=== PATIENT | male | born 1935 | race Caucasian/White ===

== ENCOUNTER 2018-08-19 16:11 | Inpatient (IN) | END 2018-08-26 19:35 | DRG 190 ==

== ENCOUNTER 2018-09-09 19:12 | Emergency (ER) | END 2018-09-09 22:40 | disposition home or self-care (01) ==

== ENCOUNTER 2018-11-17 13:59 | Inpatient (IN) | payer MEDICARE, OTHER ==
[~2018-11-17] VITALS: Ht 157.5 cm; Wt 64.5 kg
[~2018-11-17 13:59] MED LIST: ALBU18HF INHALATION; ALBU2.5V3 NEB; APIX2.5T PO; BICA50TA5 ORAL; CARSR60 PO; CLON-379 PO; HYDR-3671 PO; LORA1TAB PO; METO-335 PO; ONDA4TAB13 PO; PANT40TA4 PO; UMEC62.5 IH
[2018-11-17] MEDS ORDERED: ALBUTEROL 0.5% (NEB) 2.5 MG/0.5 ML AMP INH STA (14:38)
[2018-11-17] MEDS ORDERED: IPRATROPIUM (NEB) 0.5 MG/2.5 ML AMP INH STA (14:38)
[2018-11-17] MEDS ORDERED: FUROSEMIDE 20 MG INJ IV ONE (16:30)
[2018-11-17] MEDS ORDERED: ONDANSETRON 4 MG INJ IV PRN ×2 (17:00→21:30)
[2018-11-17] MEDS ORDERED: METHYLPREDNISOLONE 125 MG INJ IV ONE (17:00)
[2018-11-17] MEDS ORDERED: PIPER-TAZO 3.375 GM IV (PMX) 100 ML IVPB ONE (17:00)
[2018-11-17] MEDS ORDERED: ACETAMINOPHEN 325 MG TAB PO PRN (17:00)
[2018-11-17] MEDS ORDERED: SUVO20TA2 ORAL (17:51)
[2018-11-17] MEDS ORDERED: CHOL5000 ORAL (17:51)
[2018-11-17] MEDS ORDERED: NICARDipine HCL 30 MG CAPSULE PO ONE (18:00)
--- NOTE | 2018-11-17 18:16 | ERD ---
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 Normally the patient is able to ambulate with his home oxygen but he is unable to get out of the bed due to the shortness of breath. His nephew also states that he is noticed that the patient's had a productive cough. He feels that this has made it more difficult for the patient debrided. Contrary to the triage note the patient is not complained of leg pain for the past 3 days and no leg swelling. He said no fevers or shaking or chills. He had a decrease in appetite. The patient had a history of tobacco use but quit 8 years ago and diagnosed with pulmonary fibrosis. ROS All systems reviewed and are negative except as per history of present illness. Medications Home Meds Reported Medications Pantoprazole* (Pantoprazole*) 40 Mg Tablet.dr, 40 MG PO AC BREAKFAST, TAB 09/09/18 Ondansetron Hcl* (Zofran*) 4 Mg Tab, 4 MG PO Q6H PRN for NAUSEA AND OR VOMITING, TAB 09/09/18 Lorazepam* (Lorazepam*) 1 Mg Tablet, 1 MG PO BID PRN for ANXIETY, #30 TAB 09/09/18 Apixaban* (Eliquis*) 2.5 Mg Tablet, 2.5 MG PO BID, TAB 09/09/18 Clonidine Hcl* (Clonidine Hcl*) 0.1 Mg Tab, 0.1 MG PO Q8 PRN for FOR SBP>160, TAB 09/09/18 Diltiazem Hcl* (Cardizem SR*) 60 Mg Capsr, 60 MG PO Q6H, #60 CAP HOLD FOR SBP<110 OR HR<60 09/09/18 Hydralazine Hcl* (Hydralazine Hcl*) 25 Mg Tab, 25 MG PO Q8, #90 TAB HOLD IF SBP<110 OR HR<60 09/09/18 Bicalutamide* (Casodex*) 50 Mg Tablet, 50 MG ORAL DAILY 08/19/18 Albuterol Sulfate* (Albuterol Sulfate* Neb) 0.083%-3 Ml Neb, 1.25 MG NEB Q4H, #30 VIAL 08/19/18 Umeclidinium [place] (Incruse Ellipta) 62.5 Mcg Blst.w.dev, 62.5 MCG IH DAILY 08/19/18 Metoprolol Succinate* (Toprol XL*) 25 Mg Tab.sr.24h, 25 MG PO DAILY, #30 TAB HOLD IF SBP<110 OR HR<60 08/19/18 Albuterol Sulfate* (Ventolin HFA*) 18 Gm Hfa.aer.ad, 2 PUFF INHALATION Q4H PRN for SHORTNESS OF BREATH, #1 INHALER 08/19/18 Allergies Allergies: Coded Allergies: tramadol (Verified Allergy, Unknown, 09/09/18) PMhx/Soc History of Surgery: Yes (stent placement in both legs -4 years ago ) Anesthesia Reaction: No Hx Neurological Disorder: No Hx Respiratory Disorders: Yes (COPD, per family chronic collapsed lung. History of TB ) Hx Cardiac Disorders: No (HTN ) Hx Psychiatric Problems: No Hx Miscellaneous Medical Probl: Yes (granulomatous TB, L-sided lung collapse, COPD on chronic home O2, HTN, pros) Hx Alcohol Use: No Hx Substance Use: No Hx Tobacco Use: Yes (7 years ago stopped smoking) Smoking Status: Former smoker Physical Exam Vitals Vital Signs Date Temp Pulse Resp B/P (MAP) Pulse Ox O2 O2 Flow FiO2 Time Delivery Rate 11/17/18 98.7 100 20 177/108 92 BIPAP 2.0 17:46 (131) 11/17/18 98.7 85 20 180/116 92 BIPAP 2.0 17:09 (137) 11/17/18 98 98 50 17:08 11/17/18 98.7 91 32 172/116 92 Nasal 2.0 16:24 (134) Cannula 11/17/18 98.7 88 32 166/109 92 Nasal 2.0 15:24 (128) Cannula 11/17/18 89 20 89 Nasal 2.0 15:15 Cannula 11/17/18 2.0 15:15 11/17/18 Nasal 2.0 15:07 Cannula 11/17/18 Nasal 2 15:07 Cannula 11/17/18 98.7 105 32 189/105 93 14:15 (133) Physical Exam Constitutional:Well-developed. Well-nourished. Patient severe respiratory distress HEENT:Normocephalic. Atraumatic.Pupils were equal round reactive to light. Moist mucous membranes.No tonsillar exudates. Neck: No nuchal rigidity. No lymphadenopathy. No posterior cervical spine tenderness or step-offs. Respiratory: Tachypneic and patient using accessory muscles of respiration.decreased breath sounds in the left hemithorax. No rhonchi. No rales. Wheezing bilaterally Cardiovascular: Tachycardic with irregular regular rhythm no murmurs. No rubs were appreciated.S1, S2 normal. Distal pulses are palpable 2+ bilaterally. GI: Abdomen was soft. Nontender. Non Distended. No pulsatile abdominal masses or bruits. No rebound. No guarding. Bowel sounds were present and normal. Muscle skeletal: Full range of motion of both the upper and lower extremities bilaterally.Normal muscle tone.No assymetrical calf tenderness or swelling. Skin: No petechia, no purpura. No lesions on the palms or the soles of the feet. No maculopapular rash. NEURO: Patient was alert, awake, orientated x3.No facial droop. Gait not observed as patient was in severe respiratory distress and unable to Ambulate Result Diagram: 11/17/18 1450 11/17/18 1450 Results 24 hrs Laboratory Tests Test 11/17/18 14:50 White Blood Count 9.3 10^3/ul Red Blood Count 3.47 10^6/ul Hemoglobin 10.3 g/dl Hematocrit 32.5 % Mean Corpuscular Volume 93.7 fl Mean Corpuscular Hemoglobin 29.7 pg Mean Corpuscular Hemoglobin Concent 31.7 g/dl Red Cell Distribution Width 14.9 % Platelet Count 343 10^3/UL Mean Platelet Volume 9.4 fl Immature Granulocytes % 0.500 % Neutrophils % 61.7 % Lymphocytes % 16.5 % Monocytes % 9.7 % Eosinophils % 10.5 % Basophils % 1.1 % Nucleated Red Blood Cells % 0.0 /100WBC Immature Granulocytes # 0.050 10^3/ul Neutrophils # 5.7 10^3/ul Lymphocytes # 1.5 10^3/ul Monocytes # 0.9 10^3/ul Eosinophils # 1.0 10^3/ul Basophils # 0.1 10^3/ul Nucleated Red Blood Cells # 0.0 10^3/ul Prothrombin Time 12.6 Sec Prothrombin Time Ratio 1.0 INR International Normalized Ratio 0.93 Activated Partial Thromboplast Time 29.9 Sec Sodium Level 145 mmol/L Potassium Level 3.8 mmol/L Chloride Level 105 mmol/L Carbon Dioxide Level 28 mmol/L Anion Gap 12 Blood Urea Nitrogen 21 mg/dl Creatinine 1.73 mg/dl Est Glomerular Filtrat Rate mL/min mL/min Glucose Level 118 mg/dl Calcium Level 10.2 mg/dl Total Bilirubin 0.2 mg/dl Direct Bilirubin 0.00 mg/dl Indirect Bilirubin 0.2 mg/dl Aspartate Amino Transf (AST/SGOT) 26 IU/L Alanine Aminotransferase (ALT/SGPT) 10 IU/L Alkaline Phosphatase 89 IU/L Troponin I < 0.012 ng/ml B-Type Natriuretic Peptide 6090 PG/ML Total Protein 8.4 g/dl Albumin 4.6 g/dl Globulin 3.80 g/dl Albumin/Globulin Ratio 1.21 Current Medications Medications Dose Sig/Lilia Start Time Status Last (Trade) Ordered Route PRN Stop Time Admin Dose Reason Admin Albuterol 10 mg ONCE STAT 11/17/18 DC 11/17/18 (Proventil INH 14:38 11/17/18 15:14 0.5% (Neb)) 14:47 Ipratropium 1 mg ONCE STAT 11/17/18 DC 11/17/18 [place] INH 14:38 11/17/18 15:14 (Atrovent 14:47 0.02% (Neb)) Furosemide 20 mg ONCE ONCE 11/17/18 DC 11/17/18 (Lasix) IV 16:30 11/17/18 16:27 16:31 125 mg ONCE ONCE 11/17/18 DC 11/17/18 Methylprednis IV 17:00 11/17/18 17:23 olone Sodium 17:01 Succinate (Solu-Medrol) Piperacillin 100 ml @ ONCE ONCE 11/17/18 DC 11/17/18 Sod/ 200 mls/hr IVPB 17:00 11/17/18 17:23 Tazobactam 17:29 Sod Ondansetron 4 mg ER BRIDGE 11/17/18 HCl (Zofran PRN IV 17:00 11/18/18 Inj) NAUSEA/VOMITI 16:59 NG 650 mg ER BRIDGE 11/17/18 Acetaminophen PRN PO 17:00 11/18/18 (Tylenol .MILD PAIN 16:59 Tab) 1-3 OR TEMP Procedures/MDM The patient presented to the emergency department with shortness of breath. My differential diagnosis included but was not limited to upper airway obstruction, CHF, pulmonary embolism, cardiac ischemia, pneumonia, pneumothorax, anemia, drug overdose, pulmonary edema, COPD or asthma. 12 Lead EKG tracing ordered and reviewed by myself showed: Irregular regular rhythm at 86 bpm and no arrhythmia. MA interval not appreciated as there is no P waves QRS duration normal. No ST segment elevation No ST segment depression. No changes consistent with acute ischemia. The patient had no leukocytosis. I did not feel the patient was septic. The patient has a known history of significant granulomatosis disease on home oxygen with COPD. He was given a continuous nebulizer treatment of albuterol Atrovent was also given 125 mg of Solu-Medrol. His BNP was elevated but he has no history of congestive heart failure. I did administer 40 mg of Lasix with no improvement of his symptoms. Therefore at this time the patient was placed on noninvasive mechanical ventilation. I obtained a chest radiograph which showed a complete left opacification however this has been unchanged from previous radiographic imaging reviewed by myself. The patient symptoms significant improvement placed on BiPAP. The patient was hypertensive with no signs of endorgan damage to suggest hypertensive emergency or urgency and was given Cardene p.o. He will be admitted under care of Dr. Hart in serious condition with anticipated stay of greater than 2 midnights. I did feel it was necessary to obtain a CT scan of the patient's chest for further evaluation into the opacification of the left lung. The CT was reviewed with the radiologist and indicated the followin. Again noted is chronic severe scarring/fibrosis and atelectasis of the entire left lung, with associated shift of mediastinal structures to the left, essentially unchanged when compared to prior CT from 2017. 2. Right lung demonstrates severe emphysema. Mild right pleural effusion is present. 3. Indeterminate spiculated 12 mm nodule is seen in the right lower lobe - primary lung malignancy is not excluded. Short interval CT followup in 3 months is recommended to assess interval stability. Consider PET CT for further evaluation. (2017 Fleischner Society Criteria) 4. Mild cardiomegaly. 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 Coronary arterial and aortic atherosclerotic calcifications. 5. 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 Critical Care: Time: 85 minutes Treatments/Evaluations: Close monitoring and treatment of unstable vital signs, cardiorespiratory, and neurologic status, while maintaining tight balance of fluid, respiratory, and cardiac interventions. Time does not include performing any of the above billable procedures. Departure Diagnosis: Primary Impression: Emphysema lung Emphysema type: unspecified Qualified Codes: J43.9 - Emphysema, unspecif ied Additional Impression: Respiratory distress Condition: Serious PRATEEK HERRING MD Nov 17, 2018 18:01
[2018-11-17 19:22] VITALS: PULSE 92
[2018-11-17 19:42] VITALS: PULSE 88
[2018-11-17 20:00] VITALS: PULSE 99; Ht 157.5 cm; Wt 64.5 kg
[2018-11-17] MEDS ORDERED: ALBUTEROL/IPRATROPIUM (NEB) 3 ML AMP HHN PRN (21:30)
[2018-11-17] MEDS: METHYLPREDNISOLONE 125 MG INJ IV SCH (22:40)
[2018-11-17] MEDS: ACETAMINOPHEN 325 MG TAB PO PRN (22:41)
[2018-11-17] MEDS: PIPER-TAZO 3.375 GM IV (PMX) 100 ML IVPB SCH (23:07)
[2018-11-17 23:33] VITALS: BP 132/88; PULSE 99; RESP 18
[2018-11-18] VITALS (12 sets, daily range): BP systolic 133–142; BP diastolic 75–92; PULSE 84–110; RESP 18–22
[2018-11-18] MEDS: ALBUTEROL/IPRATROPIUM (NEB) 3 ML AMP HHN SCH ×6 (01:18→20:47)
[2018-11-18] MEDS: PANTOPRAZOLE 40 MG INJ IV SCH (06:35)
[2018-11-18] MEDS: METHYLPREDNISOLONE 125 MG INJ IV SCH ×3 (06:39→20:19)
[2018-11-18] MEDS: PIPER-TAZO 3.375 GM IV (PMX) 100 ML IVPB SCH ×3 (06:39→20:19)
[2018-11-18] MEDS: CHOLECALCIFEROL 1,000 UNIT TAB PO SCH (08:55)
[2018-11-18] MEDS: BICALUTAMIDE 50 MG TAB PO SCH (09:15)
--- NOTE | 2018-11-18 10:51 | CONS ---
Assessment/Plan Assessment/Plan Assessment/Plan (Daily) Chest x-ray showing complete white out of left lung with mediastinal shift towards the left. Assessment recommendations; next 1. Patient admitted with what appears to be acute bronchitis with history of COPD and prior pulmonary tuberculosis with complete left lung opacification. Patient improving on current treatment regimen. 2. Other comorbidities include history of hypertension, chronic renal insufficiency, history of prostate cancer. Continue current supportive care. Consultation Date/Type/Reason Admit Date/Time Nov 17, 2018 at 17:00 Date of Consultation: Nov 18, 2018 Type of Consult Pulmonary Pulmonary consult requested for evaluation of hypoxemia and shortness of breath. Patient is a pleasant 83-year-old male who came into the hospital with a 3-day history of increasing coughing and chest congestion and shortness of breath. Patient has been started on appropriate antimicrobial regimen with significant improvement in symptoms. He denies any high fever, chills, body aches or myalgias. Any hemoptysis or sputum production. Also denies any wheezing. Past medical history; 1. 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 2. COPD. 3. Hypertension. 4. History of prostate cancer. 5. Chronic renal insufficiency. Medications; reviewed. Allergies; none. Social history; patient never smoked. Family history; noncontributory. Review of systems; denies any headache, visual changes. Any sinus symptoms. Denies any chest pain. Complains of mild cough without any hemoptysis or sputum production. Denies any angina, abdominal pain, nausea vomiting. Any melena or hematochezia. Any orthopnea. Any weight loss. Any arthritis symptoms. Patient has good appetite. Denies any urinary symptoms. According to the patient he was doing fine until 3 or 4 days ago when the symptoms started. General exam; elderly male, awake alert, currently in no distress. Occupational history; patient has a miscellaneous occupations. Date/Time of Note DATE: 11/18/18 TIME: 10:48 Past Medical History Home Meds Reported Medications Cholecalciferol (D3-5) 5,000 Unit Capsule, 1 CAP ORAL DAILY 11/17/18 Suvorexant (Belsomra) 20 Mg Tablet, 20 MG ORAL HS PRN for ANXIETY 11/17/18 Bicalutamide* (Casodex*) 50 Mg Tablet, 50 MG ORAL DAILY 08/19/18 Albuterol Sulfate* (Albuterol Sulfate* Neb) 0.083%-3 Ml Neb, 1.25 MG NEB Q4H, #30 VIAL 08/19/18 Umeclidinium [place] (Incruse Ellipta) 62.5 Mcg Blst.w.dev, 62.5 MCG IH DAILY 08/19/18 Discontinued Reported Medications Pantoprazole* (Pantoprazole*) 40 Mg Tablet.dr, 40 MG PO AC BREAKFAST, TAB 09/09/18 Ondansetron Hcl* (Zofran*) 4 Mg Tab, 4 MG PO Q6H PRN for NAUSEA AND OR VOMITING, TAB 09/09/18 Lorazepam* (Lorazepam*) 1 Mg Tablet, 1 MG PO BID PRN for ANXIETY, #30 TAB 09/09/18 Apixaban* (Eliquis*) 2.5 Mg Tablet, 2.5 MG PO BID, TAB 09/09/18 Clonidine Hcl* (Clonidine Hcl*) 0.1 Mg Tab, 0.1 MG PO Q8 PRN for FOR SBP>160, TAB 09/09/18 Diltiazem Hcl* (Cardizem SR*) 60 Mg Capsr, 60 MG PO Q6H, #60 CAP HOLD FOR SBP<110 OR HR<60 09/09/18 Hydralazine Hcl* (Hydralazine Hcl*) 25 Mg Tab, 25 MG PO Q8, #90 TAB HOLD IF SBP<110 OR HR<60 09/09/18 Metoprolol Succinate* (Toprol XL*) 25 Mg Tab.sr.24h, 25 MG PO DAILY, #30 TAB HOLD IF SBP<110 OR HR<60 08/19/18 Albuterol Sulfate* (Ventolin HFA*) 18 Gm Hfa.aer.ad, 2 PUFF INHALATION Q4H PRN for SHORTNESS OF BREATH, #1 INHALER 08/19/18 Medications Current Medications Acetaminophen (Tylenol Tab) 650 mg Q6H PRN PO MILD PAIN(1-3)OR ELEVATED TEMP Last administered on 11/17/18at 22:41; Admin Dose 650 MG; Start 11/17/18 at 21:30 Ondansetron HCl (Zofran Inj) 4 mg Q6H PRN IV NAUSEA AND/OR VOMITING; Start 11/17/18 at 21:30 Pantoprazole (Protonix Iv) 40 mg DAILY@06 IV Last administered on 11/18/18 06:35; Admin Dose 40 MG; Start 11/18/18 at 06:00 Albuterol/ Ipratropium (Duoneb) 3 ml Q4H RESP THERAPY HHN Last administered on 11/18/18 08:40; Admin Dose 3 ML; Start 11/18/18 at 01:00 Albuterol/ Ipratropium (Duoneb) 3 ml Q2H RESP THERAPY PRN HHN WHEEZING; Start 11/17/18 at 21:30 Piperacillin Sod/ Tazobactam Sod 100 ml @ 200 mls/hr Q8 IVPB Last administered on 11/18/18 06:39; Admin Dose 200 MLS/HR; Start 11/17/18 at 23:30 Methylprednisolone Sodium Succinate (Solu-Medrol) 60 mg Q8 IV Last administered on 11/18/18 06:39; Admin Dose 60 MG; Start 11/17/18 at 22:00 Bicalutamide (Casodex) 50 mg DAILY PO Last administered on 11/18/18 09:15; Admin Dose 50 MG; Start 11/18/18 at 09:00 Cholecalciferol (Vitamin D) 5,000 unit DAILY PO Last administered on 11/18/18 08:55; Admin Dose 5,000 UNIT; Start 11/18/18 at 09:00 Allergies: Coded Allergies: No Known Drug Allergies (Verified Allergy, Unknown, 11/17/18) Social History Smoking Status: Former smoker Exam/Review of Systems Exam Vitals Vital Signs Date Temp Pulse Resp B/P (MAP) Pulse Ox O2 O2 Flow FiO2 Time Delivery Rate 11/18/18 3.0 08:43 11/18/18 88 20 98 Nasal 08:41 Cannula 11/18/18 97.6 136/80 07:23 (98) 11/17/18 50 19:42 Intake and Output 11/17/18 11/17/18 11/18/18 1414:59 22:59 06:59 IntakeIntake Total 350 ml OutputOutput Total 550 ml BalanceBalance -550 ml 350 ml Exam HEENT exam; supple neck, no JVD. No lymphadenopathy. Midline trachea. No thyromegaly. Patient has carious teeth. Chest exam; diminished breath sounds left lung. Right lung is fairly clear. S 1-S2 audible, no murmurs. Regular rhythm. Abdomen exam; soft, no organomegaly. Nondistended. Nontender. Bowel sounds audible. Extremity exam; no peripheral edema clubbing. RECORDS ANALYST exam; no focal deficit. Results Result Diagram: 11/18/18 0516 11/18/18 0516 Results 24hrs Laboratory Tests Test 11/17/18 14:50 11/17/18 21:08 11/18/18 05:16 11/18/18 08:03 White Blood Count 9.3 7.9 Red Blood Count 3.47 L 3.37 L Hemoglobin 10.3 L 9.7 L Hematocrit 32.5 L 30.4 L Mean Corpuscular 93.7 90.2 Volume Mean Corpuscular 29.7 28.8 L Hemoglobin Mean Corpuscular 31.7 L 31.9 L Hemoglobin Concent Red Cell 14.9 H 15.0 H Distribution Width Platelet Count 343 # 347 Mean Platelet 9.4 9.5 Volume Immature 0.500 H 0.600 H Granulocytes % Neutrophils % 61.7 89.1 H Lymphocytes % 16.5 8.9 L Monocytes % 9.7 1.1 Eosinophils % 10.5 H 0.0 Basophils % 1.1 0.3 Nucleated Red 0.0 0.0 Blood Cells % Immature 0.050 H 0.050 H Granulocytes # Neutrophils # 5.7 7.0 Lymphocytes # 1.5 0.7 L Monocytes # 0.9 0.1 L Eosinophils # 1.0 H 0.0 Basophils # 0.1 0.0 Nucleated Red 0.0 0.0 Blood Cells # Prothrombin Time 12.6 Prothrombin Time 1.0 Ratio INR International 0.93 Normalized Ratio Activated 29.[address] Time Sodium Level 145 H 145 H Potassium Level 3.8 3.6 Chloride Level 105 101 Carbon Dioxide 28 28 Level Anion Gap 12 16 H Blood Urea 21 H 23 H Nitrogen Creatinine 1.73 H 1.75 H Est Glomerular Filtrat Rate mL/min Glucose Level 118 187 Calcium Level 10.2 9.9 Total Bilirubin 0.2 Direct Bilirubin 0.00 Indirect Bilirubin 0.2 Aspartate Amino 26 Transf (AST/SGOT) Alanine 10 L Aminotransferase ( ALT/SGPT) Alkaline 89 Phosphatase Troponin I < 0.012 B-Type Natriuretic 6090 H Peptide Total Protein 8.4 H Albumin 4.6 Globulin 3.80 H Albumin/Globulin 1.21 Ratio Blood Gas Specimen Blood arterial Source Arterial Blood 11/17/2018 9:30:23 Date Drawn PM Arterial Blood pH 7.473 H (Temp corrected) Arterial Blood 38.7 pCO2 (Temp correct) Arterial Blood pO2 87.9 (Temp corrected) Arterial Blood 27.7 H HCO3 Arterial Blood 3.9 H Base Excess Arterial Blood 96.7 Oxygen Saturation Juma Test ACCEPTAB Arterial Blood Gas Right Radial Puncture Site Arterial 0.3 Blood Carboxyhemog lobin Arterial Blood 0.2 Methemoglobin Blood Gas A-a O2 80.5 H Differential Oxyhemoglobin 96.2 Percent Blood Gas 37.0 Temperature Blood Gas Modality NASAL CANNULA FiO2 30.0 Blood Gas Notified RTR Whom Blood Gas Notified 11/17/2018 9:45:55 Time PM Bedside Glucose 196 Medications Medication Current Medications Acetaminophen (Tylenol Tab) 650 mg Q6H PRN PO MILD PAIN(1-3)OR ELEVATED TEMP Last administered on 11/17/18at 22:41; Admin Dose 650 MG; Start 11/17/18 at 21:30 Ondansetron HCl (Zofran Inj) 4 mg Q6H PRN IV NAUSEA AND/OR VOMITING; Start 11/17/18 at 21:30 Pantoprazole (Protonix Iv) 40 mg DAILY@06 IV Last administered on 11/18/18at 06:35; Admin Dose 40 MG; Start 11/18/18 at 06:00 Albuterol/ Ipratropium (Duoneb) 3 ml Q4H RESP THERAPY HHN Last administered on 11/18/18at 08:40; Admin Dose 3 ML; Start 11/18/18 at 01:00 Albuterol/ Ipratropium (Duoneb) 3 ml Q2H RESP THERAPY PRN HHN WHEEZING; Start 11/17/18 at 21:30 Piperacillin Sod/ Tazobactam Sod 100 ml @ 200 mls/hr Q8 IVPB Last administered on 11/18/18at 06:39; Admin Dose 200 MLS/HR; Start 11/17/18 at 23:30 Methylprednisolone Sodium Succinate (Solu-Medrol) 60 mg Q8 IV Last administered on 11/18/18 06:39; Admin Dose 60 MG; Start 11/17/18 at 22:00 Bicalutamide (Casodex) 50 mg DAILY PO Last administered on 11/18/18at 09:15; Admin Dose 50 MG; Start 11/18/18 at 09:00 Cholecalciferol (Vitamin D) 5,000 unit DAILY PO Last administered on 11/18/18at 08:55; Admin Dose 5,000 UNIT; Start 11/18/18 at 09:00 PATRICK GRIFFIN Nov 18, 2018 10:51
--- NOTE | 2018-11-18 16:10 | QN ---
Documentation Comment seen and examined FELIX BHAGAT MD Nov 18, 2018 16:10
--- NOTE | 2018-11-18 16:59 | HP ---
DATE OF ADMISSION: 11/17/2018 CHIEF COMPLAINT: Shortness of breath and cough. HISTORY OF PRESENT ILLNESS: This is an 83-year-old male with a past medical history of old granuloma tous TB, left-sided lung collapse, history of COPD on chronic home oxygen, hypertension, history of p rostate cancer on Casodex, who was recently admitted in 08/2018 secondary to shortness of breath and chest pain. The patient was then subsequently discharged on 08/26/2018 on antibiotics and steroids. The patient since then had been living with sister at home. According to the family, the patient wa s getting shortness of breath for past 3 days. He was also having hard time breathing. When he was taking 2 steps, he was getting short of breath. The patient was also having some leg pain. On admis jonah, vital signs show temperature 98.7, heart rate 106, respiratory rate 21, blood pressure was 189/ 105, saturating 2 liters on nasal cannula. Chest x-ray again showed the patient had complete opacifi cation of the left hemithorax and ____ mediastinal structures unchanged from prior, stable atelectasi s, small pleural effusion. The patient was on BiPAP and was started on steroids, Zosyn, Lasix and ni cardipine was given and was admitted for further management. PAST MEDICAL HISTORY: 1. Hypertension. 2. Hyperlipidemia. 3. History of chronic smoking. 4. History of prostate cancer. 5. 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 ALLERGIES: ULTRAM. PAST SURGICAL HISTORY: According to the sister, the patient has peripheral vascular disease and surg eries on the legs. MEDICATIONS TAKING AT HOME: 1. Casodex oral daily. 2. Albuterol. 3. Incruse. 4. Belsomra. 5. Cholecalciferol. SOCIAL HISTORY: History of smoking prior. No alcohol or drug use. Currently lives at home with the sister who is his hat checker. FAMILY HISTORY: Noncontributory. REVIEW OF SYSTEMS: The patient complained of generalized weakness, shortness of breath and cough for the past 2 to 3 days. No fevers. Denies any abdominal pain, nausea, vomiting, diarrhea. The patie nt also complained of pain in the bilateral lower extremities. Denies any hematemesis, any melena, a ny bright red blood per rectum. Denies any focal neurological deficits. PHYSICAL EXAMINATION: VITAL SIGNS: Blood pressure currently 152/87, afebrile, heart rate 99, respirations 21 on 3 liters n willie cannula. GENERAL: The patient is awake, alert, oriented, appears to be in mild distress. CHEST: Diminished breath sounds in left lung. Right lung is clear. HEART: No murmur. ABDOMEN: Soft, nontender, nondistended. EXTREMITIES: No clubbing, cyanosis or edema. NEUROLOGIC: Nonfocal. LABORATORY DATA: White count 7.9, hemoglobin 9.7, platelet count 347. Creatinine of ____, BUN of 23 , sodium of 145. On last discharge, creatinine was 1.34. BNP 6090. ASSESSMENT AND PLAN: This is an 83-year-old male with: 1. Shortness of breath secondary to acute bronchitis with complete left opacification. 2. Hypertension. 3. Acute on chronic kidney disease. 4. History of prostate cancer. 5. History of tuberculosis with the left lung loss. 6. Chronic obstructive pulmonary disease. PLAN: At this period of time, the patient is admitted to telemetry. The patient will be on nebs, an tibiotics, steroids. Pulmonary consultation has been requested. The patient will be continued on ho me medications. Rest of the treatment will depend on the patient's hospitalization course. Dictated By: FELIX SHAFFER/SONYA Conf#: [id number] DID#: [id number] CC: SHERI GILL MD;*End*
[2018-11-19] VITALS (12 sets, daily range): BP systolic 130–168; BP diastolic 77–96; PULSE 87–109; RESP 18–20
[2018-11-19] MEDS: GUAIFENESIN/DM 5ML CUP PO PRN ×3 (00:29→20:57)
[2018-11-19] MEDS: ALBUTEROL/IPRATROPIUM (NEB) 3 ML AMP HHN SCH ×6 (01:17→20:02)
[2018-11-19] MEDS: PANTOPRAZOLE 40 MG INJ IV SCH (05:40)
[2018-11-19] MEDS: METHYLPREDNISOLONE 125 MG INJ IV SCH ×3 (05:40→21:07)
[2018-11-19] MEDS: PIPER-TAZO 3.375 GM IV (PMX) 100 ML IVPB SCH ×2 (05:43→14:00)
[2018-11-19] MEDS: CHOLECALCIFEROL 1,000 UNIT TAB PO SCH (08:21)
[2018-11-19] MEDS: BICALUTAMIDE 50 MG TAB PO SCH (08:25)
--- NOTE | 2018-11-19 08:50 | CONS ---
Assessment/Plan Assessment/Plan Assessment/Plan (Daily) Assessment and recommendations; 1. 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 2. Anemia. 3. Chronic renal insufficiency. Continue current supportive care. Add Zithromax 500 mg IV daily. Consultation Date/Type/Reason Admit Date/Time Nov 17, 2018 at 17:00 Initial Consult Date 11/18/18 Type of Consult Pulmonary Pulmonary consult requested for evaluation of hypoxemia and shortness of breath. Patient is a pleasant 83-year-old male who came into the hospital with a 3-day history of increasing coughing and chest congestion and shortness of breath. Patient has been started on appropriate antimicrobial regimen with significant improvement in symptoms. He denies any high fever, chills, body aches or myalgias. Any hemoptysis or sputum production. Also denies any wheezing. Past medical history; 1. 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 2. COPD. 3. Hypertension. 4. History of prostate cancer. 5. Chronic renal insufficiency. Medications; reviewed. Allergies; none. Social history; patient never smoked. Family history; noncontributory. Review of systems; denies any headache, visual changes. Any sinus symptoms. Denies any chest pain. Complains of mild cough without any hemoptysis or sputum production. Denies any angina, abdominal pain, nausea vomiting. Any melena or hematochezia. Any orthopnea. Any weight loss. Any arthritis symptoms. Patient has good appetite. Denies any urinary symptoms. According to the patient he was doing fine until 3 or 4 days ago when the symptoms started. General exam; elderly male, awake alert, currently in no distress. Occupational history; patient has a miscellaneous occupations. Date/Time of Note DATE: 11/19/18 TIME: 08:48 24 HR Interval Summary Free Text/Dictation Patient's condition is stable. Still complains of significant coughing and chest congestion as well as yellow sputum production. General exam; elderly male, awake alert, currently no distress. Episodes of c oughing noticed. Exam/Review of Systems Exam Vitals Vital Signs Date Temp Pulse Resp B/P (MAP) Pulse Ox O2 O2 Flow FiO2 Time Delivery Rate 11/19/18 103 08:01 11/19/18 97.8 20 132/90 98 07:16 (104) 11/19/18 Nasal 3.0 05:30 Cannula 11/19/18 45 01:27 Intake and Output 11/18/18 11/18/18 11/19/18 1515:00 23:00 07:00 IntakeIntake Total 240 ml 460 ml 600 ml OutputOutput Total 100 ml BalanceBalance 240 ml 360 ml 600 ml Exam HEENT exam; supple neck, no JVD. No lymphadenopathy. Midline trachea. No thyromegaly. Patient is edentulous and wears dentures. Chest exam; diminished breath sound left lung. Right lung also reveals diminished breath sounds. S1-S2 audible, no murmurs. Regular rhythm. Abdomen exam; soft, nontender. No organomegaly. Bowel sounds audible. Extremity exam; no peripheral edema clubbing. 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 Results Result Diagram: 11/18/18 0516 11/19/18 0446 Results 24hrs Laboratory Tests Test 11/19/18 04:46 Sodium Level 143 Potassium Level 3.6 Chloride Level 100 Carbon Dioxide Level 28 Anion Gap 15 H Blood Urea Nitrogen 33 H Creatinine 1.96 H Est Glomerular Filtrat Rate mL/min Glucose Level 148 Calcium Level 9.8 Medications Medication Current Medications Acetaminophen (Tylenol Tab) 650 mg Q6H PRN PO MILD PAIN(1-3)OR ELEVATED TEMP Last administered on 11/17/18at 22:41; Admin Dose 650 MG; Start 11/17/18 at 21:30 Ondansetron HCl (Zofran Inj) 4 mg Q6H PRN IV NAUSEA AND/OR VOMITING; Start 11/17/18 at 21:30 Pantoprazole (Protonix Iv) 40 mg DAILY@06 IV Last administered on 11/19/18at 05:40; Admin Dose 40 MG; Start 11/18/18 at 06:00 Albuterol/ Ipratropium (Duoneb) 3 ml Q4H RESP THERAPY HHN Last administered on 11/19/18at 05:29; Admin Dose 3 ML; Start 11/18/18 at 01:00 Albuterol/ Ipratropium (Duoneb) 3 ml Q2H RESP THERAPY PRN HHN WHEEZING; Start 11/17/18 at 21:30 Piperacillin Sod/ Tazobactam Sod 100 ml @ 200 mls/hr Q8 IVPB Last administered on 11/19/18at 05:43; Admin Dose 200 MLS/HR; Start 11/17/18 at 23:30 Methylprednisolone Sodium Succinate (Solu-Medrol) 60 mg Q8 IV Last administered on 11/19/18 05:40; Admin Dose 60 MG; Start 11/17/18 at 22:00 Bicalutamide (Casodex) 50 mg DAILY PO Last administered on 11/19/18 08:25; Admin Dose 50 MG; Start 11/18/18 at 09:00 Cholecalciferol (Vitamin D) 5,000 unit DAILY PO Last administered on 11/19/18 08:21; Admin Dose 5,000 UNIT; Start 11/18/18 at 09:00 Guaifenesin/ Dextromethorphan (Robitussin Dm Liquid Cup) 5 ml BID PRN PO COUGH Last administered on 11/19/18 05:49; Admin Dose 5 ML; Start 11/18/18 at 23:00 PATRICK GRIFFIN Nov 19, 2018 08:50
[2018-11-19] MEDS: AZITHROMYCIN 500MG/NS (PMX) 250 ML IVPB SCH (11:18)
--- NOTE | 2018-11-19 13:17 | PN ---
Date/Time of Note Date/Time of Note DATE: 11/19/18 TIME: 13:14 Assessment/Plan VTE Prophylaxis Risk score (from Ns)>0 risk: 5 SCD applied (from Ns): Yes Pharmacological prophylaxis: NA/contraindicated, LMWH Pharm contraindication: low risk/ambulating Lines/Catheters [facility] Saline Lock Urinary Cath still in place: No Assessment/Plan Hospital Course This is an 83-year-old male with: 1. Shortness of breath secondary to acute bronchitis with hxcomplete left opacification. 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 Hypertension. 3. Acute on chronic kidney disease.Cr trending up, s/p lasix diuresis 4. History of prostate cancer. 5. History of tuberculosis with the left lung loss. 6. Chronic obstructive pulmonary disease. PLAN: - Renally dose zosyn - cw Azithromycin - strict I and O - will check UA - CW iv steroids/nebs - Pt will likely need SNIF - GI/DVT prophylaxsis Result Diagram: 11/18/18 0516 11/19/18 0446 Results 24hrs Laboratory Tests Test 11/19/18 04:46 Sodium Level 143 Potassium Level 3.6 Chloride Level 100 Carbon Dioxide Level 28 Anion Gap 15 H Blood Urea Nitrogen 33 H Creatinine 1.96 H Est Glomerular Filtrat Rate mL/min Glucose Level 148 Calcium Level 9.8 Subjective 24 Hr Interval Summary Free Text/Dictation Feels the same Cr trending up Exam/Review of Systems Exam Vitals Vital Signs Date Temp Pulse Resp B/P (MAP) Pulse Ox O2 O2 Flow FiO2 Time Delivery Rate 11/19/18 93 12:01 11/19/18 97.6 18 168/91 98 11:28 (116) 11/19/18 Nasal 3.0 09:05 Cannula 11/19/18 45 01:27 Intake and Output 11/18/18 11/18/18 11/19/18 1515:00 23:00 07:00 IntakeIntake Total 240 ml 460 ml 600 ml OutputOutput Total 100 ml BalanceBalance 240 ml 360 ml 600 ml Exam GENERAL: The patient is awake, alert, oriented, appears to be in mild distress. CHEST: Diminished breath sounds in left lung. Right lung is clear. HEART: No murmur. ABDOMEN: Soft, nontender, nondistended. EXTREMITIES: No clubbing, cyanosis or edema. NEUROLOGIC: Nonfocal. Results Results 24hrs Laboratory Tests Test 11/19/18 04:46 Sodium Level 143 Potassium Level 3.6 Chloride Level 100 Carbon Dioxide Level 28 Anion Gap 15 H Blood Urea Nitrogen 33 H Creatinine 1.96 H Est Glomerular Filtrat Rate mL/min Glucose Level 148 Calcium Level 9.8 Medications Medication Current Medications Acetaminophen (Tylenol Tab) 650 mg Q6H PRN PO MILD PAIN(1-3)OR ELEVATED TEMP Last administered on 11/17/18at 22:41; Admin Dose 650 MG; Start 11/17/18 at 21:30 Ondansetron HCl (Zofran Inj) 4 mg Q6H PRN IV NAUSEA AND/OR VOMITING; Start 11/17/18 at 21:30 Pantoprazole (Protonix Iv) 40 mg DAILY@06 IV Last administered on 11/19/18 05:40; Admin Dose 40 MG; Start 11/18/18 at 06:00 Albuterol/ Ipratropium (Duoneb) 3 ml Q4H RESP THERAPY HHN Last administered on 11/19/18 09:05; Admin Dose 3 ML; Start 11/18/18 at 01:00 Albuterol/ Ipratropium (Duoneb) 3 ml Q2H RESP THERAPY PRN HHN WHEEZING; Start 11/17/18 at 21:30 Piperacillin Sod/ Tazobactam Sod 100 ml @ 200 mls/hr Q8 IVPB Last administered on 11/19/18at 05:43; Admin Dose 200 MLS/HR; Start 11/17/18 at 23:30 Methylprednisolone Sodium Succinate (Solu-Medrol) 60 mg Q8 IV Last administered on 11/19/18 05:40; Admin Dose 60 MG; Start 11/17/18 at 22:00 Bicalutamide (Casodex) 50 mg DAILY PO Last administered on 11/19/18 08:25; A dmin Dose 50 MG; Start 11/18/18 at 09:00 Cholecalciferol (Vitamin D) 5,000 unit DAILY PO Last administered on 11/19/18 08:21; Admin Dose 5,000 UNIT; Start 11/18/18 at 09:00 Guaifenesin/ Dextromethorphan (Robitussin Dm Liquid Cup) 5 ml BID PRN PO COUGH Last administered on 11/19/18at 05:49; Admin Dose 5 ML; Start 11/18/18 at 23:00 Azithromycin 250 ml @ 250 mls/hr Q24H IVPB Last administered on 11/19/18at 11:18; Admin Dose 250 MLS/HR; Start 11/19/18 at 10:30 FELIX BHAGAT MD Nov 19, 2018 13:17
[2018-11-19] MEDS: HEPARIN 5,000 UNIT/1 ML VIAL SC SCH (20:59)
[2018-11-19] MEDS: PIPER-TAZO 2.25 GM/NS 50 ML IVPB SCH (21:09)
[2018-11-20] VITALS (9 sets, daily range): BP systolic 130–158; BP diastolic 81–97; PULSE 82–101; RESP 18–22
[2018-11-20] MEDS: ALBUTEROL/IPRATROPIUM (NEB) 3 ML AMP HHN SCH ×6 (01:09→20:12)
[2018-11-20] MEDS: METHYLPREDNISOLONE 125 MG INJ IV SCH (05:41)
[2018-11-20] MEDS: PANTOPRAZOLE (EC) 40 MG TAB PO SCH (05:41)
[2018-11-20] MEDS: PIPER-TAZO 2.25 GM/NS 50 ML IVPB SCH ×3 (05:41→21:22)
[2018-11-20] MEDS: CHOLECALCIFEROL 1,000 UNIT TAB PO SCH (08:36)
[2018-11-20] MEDS: HEPARIN 5,000 UNIT/1 ML VIAL SC SCH ×2 (08:38→21:21)
[2018-11-20] MEDS: BICALUTAMIDE 50 MG TAB PO SCH (08:39)
--- NOTE | 2018-11-20 09:47 | CONS ---
Assessment/Plan Assessment/Plan Assessment/Plan (Daily) Assessment and recommendations; 1. Patient admitted with COPD exacerbation with acute bronchitis with history of complete left lung opacification from prior pulmonary tuberculosis. Clinically improving. 2. Leukocytosis likely a steroid response. 3. Anemia. 4. Chronic renal insufficiency. 5. History of prostate cancer. Continue current supportive care. Decrease Solu-Medrol. Further steroid dose tapering in 24 hours. Consultation Date/Type/Reason Admit Date/Time Nov 17, 2018 at 17:00 Initial Consult Date 11/18/18 Type of Consult Pulmonary Pulmonary consult requested for evaluation of hypoxemia and shortness of breath. Patient is a pleasant 83-year-old male who came into the hospital with a 3-day history of increasing coughing and chest congestion and shortness of breath. Patient has been started on appropriate antimicrobial regimen with significant improvement in symptoms. He denies any high fever, chills, body aches or myalgias. Any hemoptysis or sputum production. Also denies any wheezing. Past medical history; 1. 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 2. COPD. 3. Hypertension. 4. History of prostate cancer. 5. Chronic renal insufficiency. Medications; reviewed. Allergies; none. Social history; patient never smoked. Family history; noncontributory. Review of systems; denies any headache, visual changes. Any sinus symptoms. Denies any chest pain. Complains of mild cough without any hemoptysis or sputum production. Denies any angina, abdominal pain, nausea vomiting. Any melena or hematochezia. Any orthopnea. Any weight loss. Any arthritis symptoms. Patient has good appetite. Denies any urinary symptoms. According to the patient he was doing fine until 3 or 4 days ago when the symptoms started. General exam; elderly male, awake alert, currently in no distress. Occupational history; patient has a miscellaneous occupations. Date/Time of Note DATE: 11/20/18 TIME: 09:46 24 HR Interval Summary Free Text/Dictation Patient's condition is stable. Still complains of cough and chest congestion off and on. General exam; elderly male, awake alert, currently no distress. Exam/Review of Systems Exam Vitals Vital Signs Date Temp Pulse Resp B/P (MAP) Pulse Ox O2 O2 Flow FiO2 Time Delivery Rate 11/20/18 82 20 95 Nasal 2.0 08:05 Cannula 11/20/18 98.0 136/88 07:22 (104) 11/19/18 45 01:27 Intake and Output 11/19/18 11/19/18 11/20/18 1515:00 23:00 07:00 IntakeIntake Total 650 ml 200 ml OutputOutput Total 900 ml BalanceBalance 650 ml -700 ml Exam HEENT exam; supple neck, no JVD. No lymphadenopathy. Midline trachea. No thyromegaly. Patient is edentulous and wears dentures. Chest exam; diminished breath sounds left lung. Right lung is fairly clear. S1-S2 audible, no murmurs. Regular rhythm. Abdomen exam; soft, nontender. No organomegaly. Bowel sounds audible. Extremity exam; no peripheral edema clubbing. CARTR[employer]GE [employer]ER exam; no focal deficit. Results Result Diagram: 11/20/18 0508 11/20/18 0508 Results 24hrs Laboratory Tests Test 11/19/18 18:11 11/20/18 05:08 Urine Color YELLOW Urine Clarity CLEAR Urine pH 5.0 Urine Specific [place] 1.024 Urine Ketones TRACE A Urine Nitrite NEGATIVE Urine Bilirubin NEGATIVE Urine Urobilinogen NEGATIVE Urine Leukocyte Esterase NEGATIVE Urine Microscopic RBC 0 Urine Microscopic WBC 0 Urine Hemoglobin NEGATIVE Urine Glucose NEGATIVE Urine Total Protein 1+ H White Blood Count 16.2 #H Red Blood Count 3.04 L Hemoglobin 9.2 L Hematocrit 28.2 L Mean Corpuscular Volume 92.8 Mean Corpuscular Hemoglobin 30.3 Mean Corpuscular Hemoglobin Concent 32.6 Red Cell Distribution Width 15.6 H Platelet Count 312 Mean Platelet Volume 9.4 Immature Granulocytes % 1.500 H Neutrophils % 91.5 H Lymphocytes % 2.5 L Monocytes % 4.4 Eosinophils % 0.0 Basophils % 0.1 Nucleated Red Blood Cells % 0.0 Immature Granulocytes # 0.240 H Neutrophils # 14.9 H Lymphocytes # 0.4 L Monocytes # 0.7 Eosinophils # 0.0 Basophils # 0.0 Nucleated Red Blood Cells # 0.0 Sodium Level 143 Potassium Level 3.9 Chloride Level 105 Carbon Dioxide Level 28 Anion Gap 10 # Blood Urea Nitrogen 44 #H Creatinine 1.55 H Est Glomerular Filtrat Rate mL/min Glucose Level 139 Calcium Level 9.2 Phosphorus Level 4.9 Magnesium Level 2.3 Medications Medication Current Medications Acetaminophen (Tylenol Tab) 650 mg Q6H PRN PO MILD PAIN(1-3)OR ELEVATED TEMP Last administered on 11/17/18 22:41; Admin Dose 650 MG; Start 11/17/18 at 21:30 Ondansetron HCl (Zofran Inj) 4 mg Q6H PRN IV NAUSEA AND/OR VOMITING; Start 11/17/18 at 21:30 Albuterol/ Ipratropium (Duoneb) 3 ml Q4H RESP THERAPY HHN Last administered on 11/20/18 08:03; Admin Dose 3 ML; Start 11/18/18 at 01:00 Albuterol/ Ipratropium (Duoneb) 3 ml Q2H RESP THERAPY PRN HHN WHEEZING; Start 11/17/18 at 21:30 Methylprednisolone Sodium Succinate (Solu-Medrol) 60 mg Q8 IV Last administered on 11/20/18 05:41; Admin Dose 60 MG; Start 11/17/18 at 22:00 Bicalutamide (Casodex) 50 mg DAILY PO Last administered on 11/20/18 08:39; Admin Dose 50 MG; Start 11/18/18 at 09:00 Cholecalciferol (Vitamin D) 5,000 unit DAILY PO Last administered on 11/20/18 08:36; Admin Dose 5,000 UNIT; Start 11/18/18 at 09:00 Guaifenesin/ Dextromethorphan (Robitussin Dm Liquid Cup) 5 ml BID PRN PO COUGH Last administered on 11/19/18 20:57; Admin Dose 5 ML; Start 11/18/18 at 23:00 Azithromycin 250 ml @ 250 mls/hr Q24H IVPB Last administered on 11/19/18 11:18; Admin Dose 250 MLS/HR; Start 11/19/18 at 10:30 Heparin Sodium (Porcine) (Heparin (5000 Units/1ml)) 5,000 unit BID SC Last administered on 11/20/18 08:38; Admin Dose 5,000 UNIT; Start 11/19/18 at 21:00 Piperacillin Sod/ Tazobactam Sod 50 ml @ 100 mls/hr Q8 IVPB Last administered on 11/20/18 05:41; Admin Dose 100 MLS/HR; Start 11/19/18 at 22:00 Pantoprazole (Protonix Tab) 40 mg DAILY@06 PO Last administered on 11/20/18at 05:41; Admin Dose 40 MG; Start 11/20/18 at 06:00 PATRICK GRIFFIN Nov 20, 2018 09:47
[2018-11-20] MEDS: AZITHROMYCIN 500MG/NS (PMX) 250 ML IVPB SCH (10:24)
--- NOTE | 2018-11-20 12:04 | PN ---
Date/Time of Note Date/Time of Note DATE: 11/20/18 TIME: 12:02 Assessment/Plan VTE [place]axis [place] [facility] [place]: 5 SCD applied (from Ns): Yes Pharmacological prophylaxis: NA/contraindicated Pharm contraindication: low risk/ambulating Lines/Catheters [facility] Saline Lock Urinary Cath still in place: Yes Reason Cath still needed: urinary retention Assessment/Plan Hospital Course This is an 83-year-old male with: 1. Shortness of breath secondary to acute bronchitis with hxcomplete left opacification. 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 Hypertension. 3. Acute on chronic kidney disease.Cr trending up, s/p lasix diuresis, stable after Zosyn was reduced and [place] 4. History of prostate cancer. 5. History of tuberculosis with the left lung loss. 6. Chronic obstructive pulmonary disease. 7 urinary retention likely secondary to BPH 8 deconditioning 9 leukocytosis likely secondary to steroids PLAN: - cw zosyn/Azithromycin - strict I and O -Decrease steroids, with nebs -PT eval -add Flomax due to retention - Pt will likely need SNIF - GI/DVT prophylaxsis Result Diagram: 11/20/18 0508 11/20/18 0508 Results 24hrs Laboratory Tests Test 11/19/18 18:11 11/20/18 05:08 Urine Color YELLOW Urine Clarity CLEAR Urine pH 5.0 Urine Specific [place] 1.024 Urine Ketones TRACE A Urine Nitrite NEGATIVE Urine Bilirubin NEGATIVE Urine Urobilinogen NEGATIVE Urine Leukocyte Esterase NEGATIVE Urine Microscopic RBC 0 Urine Microscopic WBC 0 Urine Hemoglobin NEGATIVE Urine Glucose NEGATIVE Urine Total Protein 1+ H White Blood Count 16.2 #H Red Blood Count 3.04 L Hemoglobin 9.2 L Hematocrit 28.2 L Mean Corpuscular Volume 92.8 Mean Corpuscular Hemoglobin 30.3 Mean Corpuscular Hemoglobin Concent 32.6 Red Cell Distribution Width 15.6 H Platelet Count 312 Mean Platelet Volume 9.4 Immature Granulocytes % 1.500 H Neutrophils % 91.5 H Lymphocytes % 2.5 L Monocytes % 4.4 Eosinophils % 0.0 Basophils % 0.1 Nucleated Red Blood Cells % 0.0 Immature Granulocytes # 0.240 H Neutrophils # 14.9 H Lymphocytes # 0.4 L Monocytes # 0.7 Eosinophils # 0.0 Basophils # 0.0 Nucleated Red Blood Cells # 0.0 Sodium Level 143 Potassium Level 3.9 Chloride Level 105 Carbon Dioxide Level 28 Anion Gap 10 # Blood Urea Nitrogen 44 #H Creatinine 1.55 H Est Glomerular Filtrat Rate mL/min Glucose Level 139 Calcium Level 9.2 Phosphorus Level 4.9 Magnesium Level 2.3 Subjective 24 Hr Interval Summary Free Text/Dictation Patient gets short of breath at times Patient had high PVR yesterday need to have a [place] placed Creatinine downtrending after Zosyn was reduced and patient had a [place] Exam/Review of Systems Exam Vitals Vital Signs Date Temp Pulse Resp B/P (MAP) Pulse Ox O2 O2 Flow FiO2 Time Delivery Rate 11/20/18 97.8 85 21 158/84 98 Nasal 11:18 (108) Cannula 11/20/18 2.0 08:05 11/19/18 45 01:27 Intake and Output 11/19/18 11/19/18 11/20/18 1515:00 23:00 07:00 IntakeIntake Total 650 ml 200 ml OutputOutput Total 900 ml BalanceBalance 650 ml -700 ml Exam GENERAL: The patient is awake, alert, oriented, appears to be in mild distress. CHEST: Diminished breath sounds in left lung. Right lung is clear. HEART: No murmur. ABDOMEN: Soft, nontender, nondistended. EXTREMITIES: No clubbing, cyanosis or edema. NEUROLOGIC: Nonfocal. Results Results 24hrs Laboratory Tests Test 11/19/18 18:11 11/20/18 05:08 Urine Color YELLOW Urine Clarity CLEAR Urine pH 5.0 Urine Specific [place] 1.024 Urine Ketones TRACE A Urine Nitrite NEGATIVE Urine Bilirubin NEGATIVE Urine Urobilinogen NEGATIVE Urine Leukocyte Esterase NEGATIVE Urine Microscopic RBC 0 Urine Microscopic WBC 0 Urine Hemoglobin NEGATIVE Urine Glucose NEGATIVE Urine Total Protein 1+ H White Blood Count 16.2 #H Red Blood Count 3.04 L Hemoglobin 9.2 L Hematocrit 28.2 L Mean Corpuscular Volume 92.8 Mean Corpuscular Hemoglobin 30.3 Mean Corpuscular Hemoglobin Concent 32.6 Red Cell Distribution Width 15.6 H Platelet Count 312 Mean Platelet Volume 9.4 Immature Granulocytes % 1.500 H Neutrophils % 91.5 H Lymphocytes % 2.5 L Monocytes % 4.4 Eosinophils % 0.0 Basophils % 0.1 Nucleated Red Blood Cells % 0.0 Immature Granulocytes # 0.240 H Neutrophils # 14.9 H Lymphocytes # 0.4 L Monocytes # 0.7 Eosinophils # 0.0 Basophils # 0.0 Nucleated Red Blood Cells # 0.0 Sodium Level 143 Potassium Level 3.9 Chloride Level 105 Carbon Dioxide Level 28 Anion Gap 10 # Blood Urea Nitrogen 44 #H Creatinine 1.55 H Est Glomerular Filtrat Rate mL/min Glucose Level 139 Calcium Level 9.2 Phosphorus Level 4.9 Magnesium Level 2.3 Medications Medication Current Medications Acetaminophen (Tylenol Tab) 650 mg Q6H PRN PO MILD PAIN(1-3)OR ELEVATED TEMP Last administered on 11/17/18 22:41; Admin Dose 650 MG; Start 11/17/18 at 21:30 Ondansetron HCl (Zofran Inj) 4 mg Q6H PRN IV NAUSEA AND/OR VOMITING; Start 11/17/18 at 21:30 Albuterol/ Ipratropium (Duoneb) 3 ml Q4H RESP THERAPY HHN Last administered on 11/20/18 08:03; Admin Dose 3 ML; Start 11/18/18 at 01:00 Albuterol/ Ipratropium (Duoneb) 3 ml Q2H RESP THERAPY PRN HHN WHEEZING; Start 11/17/18 at 21:30 Bicalutamide (Casodex) 50 mg DAILY PO Last administered on 11/20/18 08:39; Admin Dose 50 MG; Start 11/18/18 at 09:00 Cholecalciferol (Vitamin D) 5,000 unit DAILY PO Last administered on 11/20/18 08:36; Admin Dose 5,000 UNIT; Start 11/18/18 at 09:00 Guaifenesin/ Dextromethorphan (Robitussin Dm Liquid Cup) 5 ml BID PRN PO COUGH Last administered on 11/19/18 20:57; Admin Dose 5 ML; Start 11/18/18 at 23:00 Azithromycin 250 ml @ 250 mls/hr Q24H IVPB Last administered on 11/20/18 10:24; Admin Dose 250 MLS/HR; Start 11/19/18 at 10:30 Heparin Sodium (Porcine) (Heparin (5000 Units/1ml)) 5,000 unit BID SC Last administered on 11/20/18 08:38; Admin Dose 5,000 UNIT; Start 11/19/18 at 21:00 Piperacillin Sod/ Tazobactam Sod 50 ml @ 100 mls/hr Q8 IVPB Last administered on 11/20/18at 05:41; Admin Dose 100 MLS/HR; Start 11/19/18 at 22:00 Pantoprazole (Protonix Tab) 40 mg DAILY@06 PO Last administered on 11/20/18at 05:41; Admin Dose 40 MG; Start 11/20/18 at 06:00 Methylprednisolone Sodium Succinate (Solu-Medrol) 40 mg Q12 IV ; Start 11/20/18 at 21:00 FELIX BHAGAT MD Nov 20, 2018 12:04
[2018-11-20] MEDS: POLYETHYLENE GLYCOL 17 GM PACKET PO PRN (16:33)
[2018-11-20] MEDS: ACETAMINOPHEN 325 MG TAB PO PRN (21:20)
[2018-11-20] MEDS: GUAIFENESIN/DM 5ML CUP PO PRN (21:20)
[2018-11-20] MEDS: TAMSULOSIN (SR) 0.4 MG CAP PO SCH (21:21)
[2018-11-20] MEDS: METHYLPREDNISOLONE 40 MG INJ IV SCH (21:21)
[2018-11-21] MEDS: ALBUTEROL/IPRATROPIUM (NEB) 3 ML AMP HHN SCH ×6 (01:36→20:04)
[2018-11-21 02:47] VITALS: BP 130/61; PULSE 103; RESP 16
[2018-11-21] MEDS: PIPER-TAZO 2.25 GM/NS 50 ML IVPB SCH ×3 (05:12→21:43)
[2018-11-21] MEDS: PANTOPRAZOLE (EC) 40 MG TAB PO SCH (05:13)
[2018-11-21 08:35] VITALS: BP 137/82; PULSE 91; RESP 18
[2018-11-21] MEDS: CHOLECALCIFEROL 1,000 UNIT TAB PO SCH (08:52)
[2018-11-21] MEDS: BICALUTAMIDE 50 MG TAB PO SCH (08:53)
[2018-11-21] MEDS: METHYLPREDNISOLONE 40 MG INJ IV SCH (08:54)
[2018-11-21] MEDS: HEPARIN 5,000 UNIT/1 ML VIAL SC SCH ×2 (08:54→21:42)
--- NOTE | 2018-11-21 11:01 | CONS ---
Assessment/Plan Assessment/Plan Assessment/Plan (Daily) Assessment and recommendations; 1. 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 2. Chronic hypoxemia, patient on home oxygen. 3. History of prostate cancer. 4. Chronic renal insufficiency. 5. Improving leukocytosis, patient off systemic steroids. Continue current supportive care. Consider discharge. Consultation Date/Type/Reason Admit Date/Time Nov 17, 2018 at 17:00 Initial Consult Date 11/18/18 Type of Consult Pulmonary Pulmonary consult requested for evaluation of hypoxemia and shortness of breath. Patient is a pleasant 83-year-old male who came into the hospital with a 3-day history of increasing coughing and chest congestion and shortness of breath. Patient has been started on appropriate antimicrobial regimen with significant improvement in symptoms. He denies any high fever, chills, body aches or myalgias. Any hemoptysis or sputum production. Also denies any wheezing. Past medical history; 1. 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 2. COPD. 3. Hypertension. 4. History of prostate cancer. 5. Chronic renal insufficiency. Medications; reviewed. Allergies; none. Social history; patient never smoked. Family history; noncontributory. Review of systems; denies any headache, visual changes. Any sinus symptoms. Denies any chest pain. Complains of mild cough without any hemoptysis or sputum production. Denies any angina, abdominal pain, nausea vomiting. Any melena or hematochezia. Any orthopnea. Any weight loss. Any arthritis symptoms. Patient has good appetite. Denies any urinary symptoms. According to the patient he was doing fine until 3 or 4 days ago when the symptoms started. General exam; elderly male, awake alert, currently in no distress. Occupational history; patient has a miscellaneous occupations. Date/Time of Note DATE: 11/21/18 TIME: 11:00 24 HR Interval Summary Free Text/Dictation Patient's condition is significantly improved. He denies any shortness of breath, coughing, sputum production or wheezing. General exam; elderly male, awake alert, currently no distress. Exam/Review of Systems Exam Vitals Vital Signs Date Temp Pulse Resp B/P (MAP) Pulse Ox O2 O2 Flow FiO2 Time Delivery Rate 11/21/18 88 16 97 Nasal 2.0 09:53 Cannula 11/21/18 97.7 137/82 08:35 (100) 11/19/18 45 01:27 Intake and Output 11/20/18 11/20/18 11/21/18 1515:00 23:00 07:00 IntakeIntake Total 250 ml 440 ml 50 ml OutputOutput Total 600 ml 500 ml BalanceBalance 250 ml -160 ml -450 ml Exam HEENT exam; supple neck, no JVD. No lymphadenopathy. Midline trachea. No thyromegaly. Patient is edentulous and wears dentures. Chest exam; diminished breath sound left lung. Right lung is clear. S1-S2 audible, no murmurs. Regular rhythm. Abdomen exam; soft, nontender. No organomegaly. Bowel sounds audible. Extremity exam; peripheral edema clubbing. 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 Results Result Diagram: 11/21/18 0454 11/21/18 0453 Results 24hrs Laboratory Tests Test 11/21/18 04:53 11/21/18 04:54 Sodium Level 141 Potassium Level 4.4 Chloride Level 103 Carbon Dioxide Level 30 Anion Gap 8 Blood Urea Nitrogen 45 H Creatinine 1.43 H Est Glomerular Filtrat Rate mL/min Glucose Level 136 Calcium Level 9.1 Phosphorus Level 4.4 Magnesium Level 2.3 White Blood Count 13.8 H Red Blood Count 3.37 L Hemoglobin 9.9 L Hematocrit 31.3 L Mean Corpuscular Volume 92.9 Mean Corpuscular Hemoglobin 29.4 Mean Corpuscular Hemoglobin Concent 31.6 L Red Cell Distribution Width 15.5 H Platelet Count 334 Mean Platelet Volume 9.6 Immature Granulocytes % 4.000 H Neutrophils % 87.1 H Lymphocytes % 4.3 L Monocytes % 4.4 Eosinophils % 0.1 Basophils % 0.1 Nucleated Red Blood Cells % 0.2 H Immature Granulocytes # 0.550 H Neutrophils # 12.0 H Lymphocytes # 0.6 L Monocytes # 0.6 Eosinophils # 0.0 Basophils # 0.0 Nucleated Red Blood Cells # 0.0 Medications Medication Current Medications Acetaminophen (Tylenol Tab) 650 mg Q6H PRN PO MILD PAIN(1-3)OR ELEVATED TEMP Last administered on 11/20/18at 21:20; Admin Dose 650 MG; Start 11/17/18 at 21:30 Ondansetron HCl (Zofran Inj) 4 mg Q6H PRN IV NAUSEA AND/OR VOMITING; Start 11/17/18 at 21:30 Albuterol/ Ipratropium (Duoneb) 3 ml Q4H RESP THERAPY HHN Last administered on 11/21/18 09:51; Admin Dose 3 ML; Start 11/18/18 at 01:00 Albuterol/ Ipratropium (Duoneb) 3 ml Q2H RESP THERAPY PRN HHN WHEEZING; Start 11/17/18 at 21:30 Bicalutamide (Casodex) 50 mg DAILY PO Last administered on 11/21/18 08:53; Admin Dose 50 MG; Start 11/18/18 at 09:00 Cholecalciferol (Vitamin D) 5,000 unit DAILY PO Last administered on 11/21/18 08:52; Admin Dose 5,000 UNIT; Start 11/18/18 at 09:00 Guaifenesin/ Dextromethorphan (Robitussin Dm Liquid Cup) 5 ml BID PRN PO COUGH Last administered on 11/20/18 21:20; Admin Dose 5 ML; Start 11/18/18 at 23:00 Azithromycin 250 ml @ 250 mls/hr Q24H IVPB Last administered on 11/20/18 10:24; Admin Dose 250 MLS/HR; Start 11/19/18 at 10:30 Heparin Sodium (Porcine) (Heparin (5000 Units/1ml)) 5,000 unit BID SC Last ad ministered on 11/21/18 08:54; Admin Dose 5,000 UNIT; Start 11/19/18 at 21:00 Piperacillin Sod/ Tazobactam Sod 50 ml @ 100 mls/hr Q8 IVPB Last administered on 11/21/18 05:12; Admin Dose 100 MLS/HR; Start 11/19/18 at 22:00 Pantoprazole (Protonix Tab) 40 mg DAILY@06 PO Last administered on 11/21/18 05 :13; Admin Dose 40 MG; Start 11/20/18 at 06:00 Methylprednisolone Sodium Succinate (Solu-Medrol) 40 mg Q12 IV Last administered on 11/21/18 08:54; Admin Dose 40 MG; Start 11/20/18 at 21:00 Tamsulosin HCl (Flomax) 0.4 mg HS PO Last administered on 3/6/19at 21:21; Admin Dose 0.4 MG; Start 11/20/18 at 21:00 Polyethylene Glycol (Miralax) 17 gm DAILY PRN PO CONSTIPATION Last administered on 11/20/18at 16:33; Admin Dose 17 GM; Start 11/20/18 at 14:30 Docusate Sodium (Colace) 100 mg BID PRN PO CONSTIPATION; Start 11/20/18 at 14:30 PATRICK GRIFFIN Nov 21, 2018 11:01
[2018-11-21] MEDS: AZITHROMYCIN 500MG/NS (PMX) 250 ML IVPB SCH (11:07)
[2018-11-21 14:27] VITALS: BP 152/92; PULSE 63; RESP 18
--- NOTE | 2018-11-21 15:08 | PN ---
Date/Time of Note Date/Time of Note DATE: 11/21/18 TIME: 15:06 Assessment/Plan VTE Prophylaxis Risk score (from Ns)>0 risk: 5 SCD applied (from Ns): Yes Pharmacological prophylaxis: NA/contraindicated Pharm contraindication: low risk/ambulating Lines/Catheters IV C[facility] Type ([facility] Saline Lock Urinary Cath still in place: Yes Reason Cath still needed: urinary retention Assessment/Plan Hospital Course This is an 83-year-old male with: 1. Shortness of breath secondary to acute bronchitis with hxcomplete left opacification. 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 Hypertension. 3. Acute on chronic kidney disease.Cr trending up, s/p lasix diuresis, stable after Zosyn was reduced and [place] 4. History of prostate cancer. 5. History of tuberculosis with the left lung loss. 6. Chronic obstructive pulmonary disease. 7 urinary retention likely secondary to BPH 8 deconditioning 9 leukocytosis likely secondary to steroids, improving PLAN: - cw zosyn/Azithromycin - strict I and O -Decrease steroids, cw with nebs -PT eval -cw Flomax due to retention - Pt will likely need SNIF -Follow-up with pulmonary DX -Continue with Casodex - GI/DVT prophylaxsis Patient will need short-term rehab due to shortness of breath/IV antibiotics Result Diagram: 11/21/18 0454 11/21/18 0453 Results 24hrs Laboratory Tests Test 11/21/18 04:53 11/21/18 04:54 Sodium Level 141 Potassium Level 4.4 Chloride Level 103 Carbon Dioxide Level 30 Anion Gap 8 Blood Urea Nitrogen 45 H Creatinine 1.43 H Est Glomerular Filtrat Rate mL/min Glucose Level 136 Calcium Level 9.1 Phosphorus Level 4.4 Magnesium Level 2.3 White Blood Count 13.8 H Red Blood Count 3.37 L Hemoglobin 9.9 L Hematocrit 31.3 L Mean Corpuscular Volume 92.9 Mean Corpuscular Hemoglobin 29.4 Mean Corpuscular Hemoglobin Concent 31.6 L Red Cell Distribution Width 15.5 H Platelet Count 334 Mean Platelet Volume 9.6 Immature Granulocytes % 4.000 H Neutrophils % 87.1 H Lymphocytes % 4.3 L Monocytes % 4.4 Eosinophils % 0.1 Basophils % 0.1 Nucleated Red Blood Cells % 0.2 H Immature Granulocytes # 0.550 H Neutrophils # 12.0 H Lymphocytes # 0.6 L Monocytes # 0.6 Eosinophils # 0.0 Basophils # 0.0 Nucleated Red Blood Cells # 0.0 Subjective 24 Hr Interval Summary Free Text/Dictation Patient HAS shortness of breath with minimal exertion Exam/Review of Systems Exam Vitals Vital Signs Date Temp Pulse Resp B/P (MAP) Pulse Ox O2 O2 Flow FiO2 Time Delivery Rate 11/21/18 97.7 63 18 152/92 99 Nasal 2.0 14:27 (112) Cannula 11/19/18 45 01:27 Intake and Output 11/20/18 11/20/18 11/21/18 1515:00 23:00 07:00 IntakeIntake Total 250 ml 440 ml 50 ml OutputOutput Total 600 ml 500 ml BalanceBalance 250 ml -160 ml -450 ml Exam GENERAL: The patient is awake, alert, oriented, appears to be in mild distress. CHEST: Diminished breath sounds in left lung. Right lung is clear. HEART: No murmur. ABDOMEN: Soft, nontender, nondistended. EXTREMITIES: No clubbing, cyanosis or edema. NEUROLOGIC: Nonfocal. Results Results 24hrs Laboratory Tests Test 11/21/18 04:53 11/21/18 04:54 Sodium Level 141 Potassium Level 4.4 Chloride Level 103 Carbon Dioxide Level 30 Anion Gap 8 Blood Urea Nitrogen 45 H Creatinine 1.43 H Est Glomerular Filtrat Rate mL/min Glucose Level 136 Calcium Level 9.1 Phosphorus Level 4.4 Magnesium Level 2.3 White Blood Count 13.8 H Red Blood Count 3.37 L Hemoglobin 9.9 L Hematocrit 31.3 L Mean Corpuscular Volume 92.9 Mean Corpuscular Hemoglobin 29.4 Mean Corpuscular Hemoglobin Concent 31.6 L Red Cell Distribution Width 15.5 H Platelet Count 334 Mean Platelet Volume 9.6 Immature Granulocytes % 4.000 H Neutrophils % 87.1 H Lymphocytes % 4.3 L Monocytes % 4.4 Eosinophils % 0.1 Basophils % 0.1 Nucleated Red Blood Cells % 0.2 H Immature Granulocytes # 0.550 H Neutrophils # 12.0 H Lymphocytes # 0.6 L Monocytes # 0.6 Eosinophils # 0.0 Basophils # 0.0 Nucleated Red Blood Cells # 0.0 Medications Medication Current Medications Acetaminophen (Tylenol Tab) 650 mg Q6H PRN PO MILD PAIN(1-3)OR ELEVATED TEMP Last administered on 11/20/18 21:20; Admin Dose 650 MG; Start 11/17/18 at 21:30 Ondansetron HCl (Zofran Inj) 4 mg Q6H PRN IV NAUSEA AND/OR VOMITING; Start 11/17/18 at 21:30 Albuterol/ Ipratropium (Duoneb) 3 ml Q4H RESP THERAPY HHN Last administered on 11/21/18 13:39; Admin Dose 3 ML; Start 11/18/18 at 01:00 Albuterol/ Ipratropium (Duoneb) 3 ml Q2H RESP THERAPY PRN HHN WHEEZING; Start 11/17/18 at 21:30 Bicalutamide (Casodex) 50 mg DAILY PO Last administered on 11/21/18 08:53; Admin Dose 50 MG; Start 11/18/18 at 09:00 Cholecalciferol (Vitamin D) 5,000 unit DAILY PO Last administered on 11/21/18 08:52; Admin Dose 5,000 UNIT; Start 11/18/18 at 09:00 Guaifenesin/ Dextromethorphan (Robitussin Dm Liquid Cup) 5 ml BID PRN PO COUGH Last administered on 11/20/18 21:20; Admin Dose 5 ML; Start 11/18/18 at 23:00 Azithromycin 250 ml @ 250 mls/hr Q24H IVPB Last administered on 11/21/18 11:07; Admin Dose 250 MLS/HR; Start 11/19/18 at 10:30 Heparin Sodium (Porcine) (Heparin (5000 Units/1ml)) 5,000 unit BID SC Last administered on 11/21/18 08:54; Admin Dose 5,000 UNIT; Start 11/19/18 at 21:00 Piperacillin Sod/ Tazobactam Sod 50 ml @ 100 mls/hr Q8 IVPB Last administered on 11/21/18 14:04; Admin Dose 100 MLS/HR; Start 11/19/18 at 22:00 Pantoprazole (Protonix Tab) 40 mg DAILY@06 PO Last administered on 11/21/18 05:13; Admin Dose 40 MG; Start 11/20/18 at 06:00 Methylprednisolone Sodium Succinate (Solu-Medrol) 40 mg Q12 IV Last administered on 11/21/18 08:54; Admin Dose 40 MG; Start 11/20/18 at 21:00 Tamsulosin HCl (Flomax) 0.4 mg HS PO Last administered on 11/20/18 21:21; Admin Dose 0.4 MG; Start 11/20/18 at 21:00 Polyethylene Glycol (Miralax) 17 gm DAILY PRN PO CONSTIPATION Last administered on 11/20/18 16:33; Admin Dose 17 GM; Start 11/20/18 at 14:30 Docusate Sodium (Colace) 100 mg BID PRN PO CONSTIPATION; Start 11/20/18 at 14:30 FELIX BHAGAT MD Nov 21, 2018 15:08
[2018-11-21] MEDS: ACETAMINOPHEN 325 MG TAB PO PRN (17:59)
[2018-11-21] MEDS: POLYETHYLENE GLYCOL 17 GM PACKET PO PRN (18:00)
[2018-11-21] MEDS: DOCUSATE SODIUM 100 MG CAP PO PRN ×2 (18:00→21:41)
[2018-11-21 20:16] VITALS: BP 142/88; PULSE 81; RESP 18
[2018-11-21] MEDS: TAMSULOSIN (SR) 0.4 MG CAP PO SCH (21:41)
[2018-11-21] MEDS ORDERED: ZOLPIDEM 5 MG TAB PO PRN (22:30)
[2018-11-22] MEDS: ALBUTEROL/IPRATROPIUM (NEB) 3 ML AMP HHN SCH ×5 (01:31→16:23)
[2018-11-22 02:05] VITALS: BP 133/78; PULSE 85; RESP 18
[2018-11-22] MEDS: PIPER-TAZO 2.25 GM/NS 50 ML IVPB SCH ×2 (05:37→13:18)
[2018-11-22] MEDS: PANTOPRAZOLE (EC) 40 MG TAB PO SCH (06:13)
--- NOTE | 2018-11-22 08:03 | CONS ---
Assessment/Plan Assessment/Plan Assessment/Plan (Daily) Assessment and recommendations; 1. Patient admitted with acute bronchitis with possibly some element of pneumonia involving right lung with significant interval clinical improvement. 2. 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 3. Chronic renal insufficiency. 4. Chronic anemia. 5. History of prostate cancer. 6. BPH. Continue current supportive care. Continue antibiotics for additional 24 hours. Consider discharge in 24 hours as well. Consultation Date/Type/Reason Admit Date/Time Nov 17, 2018 at 17:00 Initial Consult Date 11/18/18 Type of Consult Pulmonary Pulmonary consult requested for evaluation of hypoxemia and shortness of breath. Patient is a pleasant 83-year-old male who came into the hospital with a 3-day history of increasing coughing and chest congestion and shortness of breath. Patient has been started on appropriate antimicrobial regimen with significant improvement in symptoms. He denies any high fever, chills, body aches or myalgias. Any hemoptysis or sputum production. Also denies any wheezing. Past medical history; 1. 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 2. COPD. 3. Hypertension. 4. History of prostate cancer. 5. Chronic renal insufficiency. Medications; reviewed. Allergies; none. Social history; patient never smoked. Family history; noncontributory. Review of systems; denies any headache, visual changes. Any sinus symptoms. Denies any chest pain. Complains of mild cough without any hemoptysis or sputum production. Denies any angina, abdominal pain, nausea vomiting. Any melena or hematochezia. Any orthopnea. Any weight loss. Any arthritis symptoms. Patient has good appetite. Denies any urinary symptoms. According to the patient he was doing fine until 3 or 4 days ago when the symptoms started. General exam; elderly male, awake alert, currently in no distress. Occupational history; patient has a miscellaneous occupations. Date/Time of Note DATE: 11/22/18 TIME: 08:01 24 HR Interval Summary Free Text/Dictation Patient's condition is stable. Remains completely awake and alert. Denies any shortness of breath, coughing, wheezing, sputum production. General exam; elderly male, awake alert, laying comfortably in bed. Currently no distress. Exam/Review of Systems Exam Vitals Vital Signs Date Temp Pulse Resp B/P (MAP) Pulse Ox O2 O2 Flow FiO2 Time Delivery Rate 3/8/19 85 18 99 Nasal 2.0 04:25 Cannula 11/22/18 97.8 133/78 02:05 (96) 11/19/18 45 01:27 Intake and Output 11/21/18 11/21/18 11/22/18 1515:00 23:00 07:00 IntakeIntake Total 920 ml 370 ml 150 ml OutputOutput Total 525 ml 500 ml BalanceBalance 920 ml -155 ml -350 ml Exam HEENT exam; supple neck, no JVD. No lymphadenopathy. Midline trachea. No thyromegaly. Patient is edentulous and has dentures. Chest exam; right lung is clear to auscultation with diminished breath sounds left lung. S1-S2 audible, no murmurs. Regular rhythm. Abdomen exam; soft, nontender. No organomegaly. Bowel sounds audible. Extremity exam; no peripheral edema or clubbing. 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 Results Result Diagram: 11/22/18 0451 11/21/18 0453 Results 24hrs Laboratory Tests Test 11/22/18 04:51 White Blood Count 12.2 H Red Blood Count 3.12 L Hemoglobin 9.2 L Hematocrit 29.1 L Mean Corpuscular Volume 93.3 Mean Corpuscular Hemoglobin 29.5 Mean Corpuscular Hemoglobin Concent 31.6 L Red Cell Distribution Width 15.3 H Platelet Count 291 Mean Platelet Volume 9.6 Immature Granulocytes % 5.300 H Neutrophils % 70.0 Lymphocytes % 13.3 L Monocytes % 10.8 Eosinophils % 0.2 Basophils % 0.4 Nucleated Red Blood Cells % 1.2 H Immature Granulocytes # 0.650 H Neutrophils # 8.5 H Lymphocytes # 1.6 Monocytes # 1.3 H Eosinophils # 0.0 Basophils # 0.1 Nucleated Red Blood Cells # 0.2 H Medications Medication Current Medications Acetaminophen (Tylenol Tab) 650 mg Q6H PRN PO MILD PAIN(1-3)OR ELEVATED TEMP Last administered on 11/21/18at 17:59; Admin Dose 650 MG; Start 11/17/18 at 21:30 Ondansetron HCl (Zofran Inj) 4 mg Q6H PRN IV NAUSEA AND/OR VOMITING; Start 11/17/18 at 21:30 Albuterol/ Ipratropium (Duoneb) 3 ml Q4H RESP THERAPY HHN Last administered on 11/22/18 04:25; Admin Dose 3 ML; Start 11/18/18 at 01:00 Albuterol/ Ipratropium (Duoneb) 3 ml Q2H RESP THERAPY PRN HHN WHEEZING; Start 11/17/18 at 21:30 Bicalutamide (Casodex) 50 mg DAILY PO Last administered on 11/21/18 08:53; Admin Dose 50 MG; Start 11/18/18 at 09:00 Cholecalciferol (Vitamin D) 5,000 unit DAILY PO Last administered on 11/21/18 08:52; Admin Dose 5,000 UNIT; Start 11/18/18 at 09:00 Guaifenesin/ Dextromethorphan (Robitussin Dm Liquid Cup) 5 ml BID PRN PO COUGH Last administered on 11/20/18 21:20; Admin Dose 5 ML; Start 11/18/18 at 23:00 Azithromycin 250 ml @ 250 mls/hr Q24H IVPB Last administered on 11/21/18 11:07; Admin Dose 250 MLS/HR; Start 11/19/18 at 10:30 Heparin Sodium (Porcine) (Heparin (5000 Units/1ml)) 5,000 unit BID SC Last administered on 11/21/18 21:42; Admin Dose 5,000 UNIT; Start 11/19/18 at 21:00 Piperacillin Sod/ Tazobactam Sod 50 ml @ 100 mls/hr Q8 IVPB Last administered on 11/22/18 05:37; Admin Dose 100 MLS/HR; Start 11/19/18 at 22:00 Pantoprazole (Protonix Tab) 40 mg DAILY@06 PO Last administered on 11/22/18 06:13; Admin Dose 40 MG; Start 11/20/18 at 06:00 Tamsulosin HCl (Flomax) 0.4 mg HS PO Last administered on 11/21/18 21:41; Admin Dose 0.4 MG; Start 11/20/18 at 21:00 Polyethylene Glycol (Miralax) 17 gm DAILY PRN PO CONSTIPATION Last administered on 11/21/18 18:00; Admin Dose 17 GM; Start 11/20/18 at 14:30 Docusate Sodium (Colace) 100 mg BID PRN PO CONSTIPATION Last administered on 11/21/18at 21:41; Admin Dose 100 MG; Start 11/20/18 at 14:30 Methylprednisolone Sodium Succinate (Solu-Medrol) 40 mg DAILY IV ; Start 11/22/18 at 09:00 Zolpidem Tartrate (Ambien) 5 mg HS PRN PO INSOMNIA Last administered on 11/21/18at 22:41; Admin Dose 5 MG; Start 11/21/18 at 22:30 PATRICK GRIFFIN Nov 22, 2018 08:03
[2018-11-22 08:32] VITALS: BP 177/77; PULSE 83; RESP 20
[2018-11-22] MEDS: POLYETHYLENE GLYCOL 17 GM PACKET PO PRN (08:53)
[2018-11-22] MEDS: CHOLECALCIFEROL 1,000 UNIT TAB PO SCH (08:53)
[2018-11-22] MEDS: BICALUTAMIDE 50 MG TAB PO SCH (08:54)
[2018-11-22] MEDS: HEPARIN 5,000 UNIT/1 ML VIAL SC SCH (08:55)
[2018-11-22] MEDS ORDERED: METHYLPREDNISOLONE 40 MG INJ IV SCH (09:00)
[2018-11-22 09:16] VITALS: BP 120/79; PULSE 94
[2018-11-22] MEDS: AZITHROMYCIN 500MG/NS (PMX) 250 ML IVPB SCH (10:51)
--- NOTE | 2018-11-22 12:00 | PN ---
Date/Time of Note Date/Time of Note DATE: 11/22/18 TIME: 11:54 Assessment/Plan VTE Prophylaxis Risk score (from Ns)>0 risk: 7 SCD applied (from Ns): Yes Pharmacological prophylaxis: NA/contraindicated Pharm contraindication: low risk/ambulating Lines/Catheters IV Catheter Type (from [facility] Saline Lock Urinary Cath still in place: Yes Reason Cath still needed: urinary retention Assessment/Plan Hospital Course 1. Shortness of breath secondary to acute bronchitis with hx of complete left opacification of lung due to old TB 2. Hypertension. 3. Acute on chronic kidney disease. Cr trending down 4. History of prostate cancer. 5. History of tuberculosis with the left lung loss. 6. Chronic obstructive pulmonary disease. 7 urinary retention likely secondary to BPH 8 deconditioning 9 leukocytosis likely secondary to steroids, improving 10. 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 Assessment/Plan - cw zosyn/Azithromycin - strict I and O -c/w steroids, cw with nebs -PT eval -cw Flomax due to retention - Pt will likely need SNF -Follow-up with pulmonary DX -Continue with Casodex - GI/DVT prophylaxsis Result Diagram: 11/22/18 0451 11/21/18 0453 Results 24hrs Laboratory Tests Test 11/22/18 04:51 White Blood Count 12.2 H Red Blood Count 3.12 L Hemoglobin 9.2 L Hematocrit 29.1 L Mean Corpuscular Volume 93.3 Mean Corpuscular Hemoglobin 29.5 Mean Corpuscular Hemoglobin Concent 31.6 L Red Cell Distribution Width 15.3 H Platelet Count 291 Mean Platelet Volume 9.6 Immature Granulocytes % 5.300 H Neutrophils % 70.0 Lymphocytes % 13.3 L Monocytes % 10.8 Eosinophils % 0.2 Basophils % 0.4 Nucleated Red Blood Cells % 1.2 H Immature Granulocytes # 0.650 H Neutrophils # 8.5 H Lymphocytes # 1.6 Monocytes # 1.3 H Eosinophils # 0.0 Basophils # 0.1 Nucleated Red Blood Cells # 0.2 H Subjective 24 Hr Interval Summary Respiratory: shortness of breath (on oxygen) Exam/Review of Systems Exam Vitals Vital Signs Date Temp Pulse Resp B/P (MAP) Pulse Ox O2 O2 Flow FiO2 Time Delivery Rate 11/22/18 88 16 98 Nasal 2.0 10:08 Cannula 11/22/18 120/79 09:16 (93) 11/22/18 97.9 08:32 11/19/18 45 01:27 Intake and Output 11/21/18 11/21/18 11/22/18 1515:00 23:00 07:00 IntakeIntake Total 920 ml 370 ml 150 ml OutputOutput Total 525 ml 500 ml BalanceBalance 920 ml -155 ml -350 ml Exam sitting in a chair Constitutional: alert, oriented Neck: supple Respiratory: diminished breath sounds Cardiovascular: regular rate and rhythm Results Results 24hrs Laboratory Tests Test 11/22/18 04:51 White Blood Count 12.2 H Red Blood Count 3.12 L Hemoglobin 9.2 L Hematocrit 29.1 L Mean Corpuscular Volume 93.3 Mean Corpuscular Hemoglobin 29.5 Mean Corpuscular Hemoglobin Concent 31.6 L Red Cell Distribution Width 15.3 H Platelet Count 291 Mean Platelet Volume 9.6 Immature Granulocytes % 5.300 H Neutrophils % 70.0 Lymphocytes % 13.3 L Monocytes % 10.8 Eosinophils % 0.2 Basophils % 0.4 Nucleated Red Blood Cells % 1.2 H Immature Granulocytes # 0.650 H Neutrophils # 8.5 H Lymphocytes # 1.6 Monocytes # 1.3 H Eosinophils # 0.0 Basophils # 0.1 Nucleated Red Blood Cells # 0.2 H Medications Medication Current Medications Acetaminophen (Tylenol Tab) 650 mg Q6H PRN PO MILD PAIN(1-3)OR ELEVATED TEMP Last administered on 11/21/18at 17:59; Admin Dose 650 MG; Start 11/17/18 at 21:30 Ondansetron HCl (Zofran Inj) 4 mg Q6H PRN IV NAUSEA AND/OR VOMITING; Start 11/17/18 at 21:30 Albuterol/ Ipratropium (Duoneb) 3 ml Q4H RESP THERAPY HHN Last administered on 11/22/18at 10:06; Admin Dose 3 ML; Start 11/18/18 at 01:00 Albuterol/ Ipratropium (Duoneb) 3 ml Q2H RESP THERAPY PRN HHN WHEEZING; Start 11/17/18 at 21:30 Bicalutamide (Casodex) 50 mg DAILY PO Last administered on 11/22/18at 08:54; Admin Dose 50 MG; Start 11/18/18 at 09:00 Cholecalciferol (Vitamin D) 5,000 unit DAILY PO Last administered on 11/22/18 08:53; Admin Dose 5,000 UNIT; Start 11/18/18 at 09:00 Guaifenesin/ Dextromethorphan (Robitussin Dm Liquid Cup) 5 ml BID PRN PO COUGH Last administered on 11/20/18 21:20; Admin Dose 5 ML; Start 11/18/18 at 23:00 Azithromycin 250 ml @ 250 mls/hr Q24H IVPB Last administered on 11/22/18 10:51; Admin Dose 250 MLS/HR; Start 11/19/18 at 10:30 Heparin Sodium (Porcine) (Heparin (5000 Units/1ml)) 5,000 unit BID SC Last administered on 11/22/18 08:55; Admin Dose 5,000 UNIT; Start 11/19/18 at 21:00 Piperacillin Sod/ Tazobactam Sod 50 ml @ 100 mls/hr Q8 IVPB Last administered on 11/22/18 05:37; Admin Dose 100 MLS/HR; Start 11/19/18 at 22:00 Pantoprazole (Protonix Tab) 40 mg DAILY@06 PO Last administered on 11/22/18 06:13; Admin Dose 40 MG; Start 11/20/18 at 06:00 Tamsulosin HCl (Flomax) 0.4 mg HS PO Last administered on 11/21/18 21:41; Admin Dose 0.4 MG; Start 11/20/18 at 21:00 Polyethylene Glycol (Miralax) 17 gm DAILY PRN PO CONSTIPATION Last administered on 11/22/18 08:53; Admin Dose 17 GM; Start 11/20/18 at 14:30 Docusate Sodium (Colace) 100 mg BID PRN PO CONSTIPATION Last administered on 11/21/18 21:41; Admin Dose 100 MG; Start 11/20/18 at 14:30 Methylprednisolone Sodium Succinate (Solu-Medrol) 40 mg DAILY IV Last administered on 11/22/18 08:53; Admin Dose 40 MG; Start 11/22/18 at 09:00 Zolpidem Tartrate (Ambien) 5 mg HS PRN PO INSOMNIA Last administered on 11/21/18 22:41; Admin Dose 5 MG; Start 11/21/18 at 22:30 KENRICK BARDALES Nov 22, 2018 12:00
--- NOTE | 2018-11-22 12:05 | DS ---
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 The patient was then subsequently discharged on 08/26/2018 on antibiotics and steroids. The patient since then had been living with sister at home. According to the family, the patient was getting shortness of breath for past 3 days. He was also having hard time breathing. When he was taking 2 steps, he was getting short of breath. The patient was also having some leg pain. On admission, vital signs show temperature 98.7, heart rate 106, respiratory rate 21, blood pressure was 189/105, saturating 2 liters on nasal cannula. Chest x-ray again showed the patient had complete opacification of the left hemithorax and mediastinal structures unchanged from prior, stable atelectasis, small pleural effusion. The patient was on BiPAP and was started on steroids, Zosyn, Lasix and nicardipine was given and was admitted for further management. 1. Shortness of breath secondary to acute bronchitis with hx of complete left opacification of lung due to old TB . PNEUMONIA RIGHT LUNG 2. Hypertension. 3. Acute on chronic kidney disease. Creatinine is trending down 4. History of prostate cancer. 5. History of tuberculosis with the left lung loss. 6. Chronic obstructive pulmonary disease. 7 urinary retention likely secondary to BPH 8 deconditioning 9 leukocytosis likely secondary to steroids, improving 10. 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 During hospitalization pt was seen by pulmonary consult Dr GILL for evaluation of hypoxemia and shortness of breath. He was started on IV a/b, supplemental oxygen and breathing treatment. Pt demonstrated some progress, however pt creatinine was trending up. After stopping Lasix and inserting [place] catheter creatinine went down. Now pt is on Casodex and he has a [place] catheter that needs to be continued in SNF. Pt demonstrated improvement and was accepted to [facility]. He need continuation of a/b for [address] Block, titration of prednisolone down and supplemental oxygen. 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 Home Meds Reported Medications Cholecalciferol (D3-5) 5,000 Unit Capsule, 1 CAP ORAL DAILY 11/17/18 Suvorexant (Belsomra) 20 Mg Tablet, 20 MG ORAL HS PRN for ANXIETY 11/17/18 Bicalutamide* (Casodex*) 50 Mg Tablet, 50 MG ORAL DAILY 08/19/18 Albuterol Sulfate* (Albuterol Sulfate* Neb) 0.083%-3 Ml Neb, 1.25 MG NEB Q4H, #30 VIAL 08/19/18 Umeclidinium [place] (Incruse Ellipta) 62.5 Mcg Blst.w.dev, 62.5 MCG IH DAILY 08/19/18 Discontinued Reported Medications Pantoprazole* (Pantoprazole*) 40 Mg Tablet.dr, 40 MG PO AC BREAKFAST, TAB 09/09/18 Ondansetron Hcl* (Zofran*) 4 Mg Tab, 4 MG PO Q6H PRN for NAUSEA AND OR VOMITING, TAB 09/09/18 Lorazepam* (Lorazepam*) 1 Mg Tablet, 1 MG PO BID PRN for ANXIETY, #30 TAB 09/09/18 Apixaban* (Eliquis*) 2.5 Mg Tablet, 2.5 MG PO BID, TAB 09/09/18 Clonidine Hcl* (Clonidine Hcl*) 0.1 Mg Tab, 0.1 MG PO Q8 PRN for FOR SBP>160, TAB 09/09/18 Diltiazem Hcl* (Cardizem SR*) 60 Mg Capsr, 60 MG PO Q6H, #60 CAP HOLD FOR SBP<110 OR HR<60 09/09/18 Hydralazine Hcl* (Hydralazine Hcl*) 25 Mg Tab, 25 MG PO Q8, #90 TAB HOLD IF SBP<110 OR HR<60 09/09/18 Metoprolol Succinate* (Toprol XL*) 25 Mg Tab.sr.24h, 25 MG PO DAILY, #30 TAB HOLD IF SBP<110 OR HR<60 08/19/18 Albuterol Sulfate* (Ventolin HFA*) 18 Gm Hfa.aer.ad, 2 PUFF INHALATION Q4H PRN for SHORTNESS OF BREATH, #1 INHALER 08/19/18 Follow-up Plan oncology F/up Dr Block 2 weeks Primary Care Provider Not On Staff Doctor Time spent on discharge: < 30 minutes Pending Labs Laboratory Tests Test 11/22/18 04:51 White Blood Count 12.2 10^3/ul (4.8-10.8) Red Blood Count 3.12 10^6/ul (4.70-6.10) Hemoglobin 9.2 g/dl (14.0-18.0) Hematocrit 29.1 % (42.0-52.0) Mean Corpuscular Volume 93.3 fl (82.0-101.0) Mean Corpuscular Hemoglobin 29.5 pg (29.0-33.0) Mean Corpuscular Hemoglobin Concent 31.6 g/dl (32.0-37.0) Red Cell Distribution Width 15.3 % (11.5-14.5) Platelet Count 291 10^3/UL (140-415) Mean Platelet Volume 9.6 fl (7.4-10.4) Immature Granulocytes % 5.300 % (0.001-0.429) Neutrophils % 70.0 % (39.0-77.0) Lymphocytes % 13.3 % (15.0-51.0) Monocytes % 10.8 % (0.0-11.0) Eosinophils % 0.2 % (0.0-7.0) Basophils % 0.4 % (0.0-2.0) Nucleated Red Blood Cells % 1.2 /100WBC (0.0-0.0) Immature Granulocytes # 0.650 10^3/ul (0.0-0.031) Neutrophils # 8.5 10^3/ul (1.6-7.5) Lymphocytes # 1.6 10^3/ul (0.8-2.9) Monocytes # 1.3 10^3/ul (0.3-0.9) Eosinophils # 0.0 10^3/ul (0.0-0.5) Basophils # 0.1 10^3/ul (0.0-0.1) Nucleated Red Blood Cells # 0.2 10^3/ul (0.0-0.0) FELIX BHAGAT MD 11/22/18 3094: Discharge Summary Admission/Discharge Info Hospital Course SEEN AND EXAMINED WITH rnp alanna leon/baldo monique 1 day pred tapering Home Meds Reported Medications Cholecalciferol (D3-5) 5,000 Unit Capsule, 1 CAP ORAL DAILY 11/17/18 Suvorexant (Belsomra) 20 Mg Tablet, 20 MG ORAL HS PRN for ANXIETY 11/17/18 Bicalutamide* (Casodex*) 50 Mg Tablet, 50 MG ORAL DAILY 08/19/18 Albuterol Sulfate* (Albuterol Sulfate* Neb) 0.083%-3 Ml Neb, 1.25 MG NEB Q4H, #30 VIAL 08/19/18 Umeclidinium [place] (Incruse Ellipta) 62.5 Mcg Blst.w.dev, 62.5 MCG IH DAILY 08/19/18 Discontinued Reported Medications Pantoprazole* (Pantoprazole*) 40 Mg Tablet.dr, 40 MG PO AC BREAKFAST, TAB 09/09/18 Ondansetron Hcl* (Zofran*) 4 Mg Tab, 4 MG PO Q6H PRN for NAUSEA AND OR VOMITING, TAB 09/09/18 Lorazepam* (Lorazepam*) 1 Mg Tablet, 1 MG PO BID PRN for ANXIETY, #30 TAB 09/09/18 Apixaban* (Eliquis*) 2.5 Mg Tablet, 2.5 MG PO BID, TAB 09/09/18 Clonidine Hcl* (Clonidine Hcl*) 0.1 Mg Tab, 0.1 MG PO Q8 PRN for FOR SBP>160, TAB 09/09/18 Diltiazem Hcl* (Cardizem SR*) 60 Mg Capsr, 60 MG PO Q6H, #60 CAP HOLD FOR SBP<110 OR HR<60 09/09/18 Hydralazine Hcl* (Hydralazine Hcl*) 25 Mg Tab, 25 MG PO Q8, #90 TAB HOLD IF SBP<110 OR HR<60 09/09/18 Metoprolol Succinate* (Toprol XL*) 25 Mg Tab.sr.24h, 25 MG PO DAILY, #30 TAB HOLD IF SBP<110 OR HR<60 08/19/18 Albuterol Sulfate* (Ventolin HFA*) 18 Gm Hfa.aer.ad, 2 PUFF INHALATION Q4H PRN for SHORTNESS OF BREATH, #1 INHALER 08/19/18 KENRICK BARDALES Nov 22, 2018 12:05 FELIX BHAGAT MD Nov 22, 2018 17:24
[2018-11-22] MEDS ORDERED: BISACODYL 10 MG SUPP PR PRN (13:00)
[2018-11-22] MEDS ORDERED: LACTULOSE 30ML CUP PO PRN (13:00)
[2018-11-22] MEDS: ACETAMINOPHEN 325 MG TAB PO PRN (14:37)
[2018-11-22 14:57] VITALS: BP 137/91; PULSE 77; RESP 22
== END 2018-11-22 19:56 | DRG 190 ==
LOC: E/R 13:59 → 6WM 17:00 → PED 11-20 13:30 → PP2 11-20 14:14
PROVIDERS: ADMIT Internal Medicine; ATTEND Internal Medicine
DX: J44.0 Chronic obstructive pulmonary disease with (acute) lower respiratory infection (principal); J18.9 Pneumonia, unspecified organism; N17.9 Acute kidney failure, unspecified; I12.9 Hypertensive chronic kidney disease with stage 1 through stage 4 chronic kidney disease, or unspecified chronic kidney disease; N18.9 Chronic kidney disease, unspecified; Z99.81 Dependence on supplemental oxygen; Z85.46 Personal history of malignant neoplasm of prostate; Z86.11 Personal history of tuberculosis; Z87.891 Personal history of nicotine dependence; E78.5 Hyperlipidemia, unspecified; D64.9 Anemia, unspecified; J20.9 Acute bronchitis, unspecified; R09.02 Hypoxemia; R33.9 Retention of urine, unspecified; N40.1 Benign prostatic hyperplasia with lower urinary tract symptoms; M43.8X4 Other specified deforming dorsopathies, thoracic region
CPT/HCPCS: 36600; 71045; 71250; 80048; 80053; 81001; 82803; 82962; 83735; 83880; 84100; 84484; 85025; 85610; 85730; 87040; 87086; 87400; 93005; 94640; 94644; 94660; 94664; 96374; 97161; C9113; J0456; J1644; J1940; J2543; J2920; J2930

== ENCOUNTER 2018-12-07 19:43 | Inpatient (IN) | payer MEDICARE, OTHER ==
[~2018-12-07] VITALS: Ht 167.6 cm; Wt 65.0 kg
[~2018-12-07 19:43] MED LIST changes: -ALBU18HF INHALATION; -APIX2.5T PO; -CARSR60 PO; +CHOL5000 ORAL; -CLON-379 PO; -HYDR-3671 PO; -LORA1TAB PO; -METO-335 PO; -ONDA4TAB13 PO; -PANT40TA4 PO; +SUVO20TA2 ORAL
[2018-12-07] MEDS ORDERED: VANCOMYCIN 1 GM (PMX) 250 ML IVPB STA (20:38)
[2018-12-07] MEDS ORDERED: CEFEPIME 1GM/50 ML (PMX) 50 ML IVPB STA (20:38)
[2018-12-07] MEDS ORDERED: ALBUTEROL 0.083% (NEB) 2.5 MG/3 ML AMP HHN STA (20:38)
[2018-12-07] MEDS ORDERED: SOD CHLORIDE 0.9% 500 ML IV STA (20:38)
--- NOTE | 2018-12-07 20:52 | ERD ---
ER Documentation Chief Complaint Chief Complaint [facility] day, HPI This is a 83-year-old male who [facility] because of cough for 1 day. The patient states his had a productive thick white sputum and cough for the past 1 day but denies any fever or chills. No shortness of breath chest p ain, no nausea vomiting diarrhea no headache or neurological complaints. ROS All systems reviewed and are negative except as per history of present illness. Medications Home Meds Reported Medications Cholecalciferol (D3-5) 5,000 Unit Capsule, 1 CAP ORAL DAILY 11/17/18 Suvorexant (Belsomra) 20 Mg Tablet, 20 MG ORAL HS PRN for ANXIETY 11/17/18 Bicalutamide* (Casodex*) 50 Mg Tablet, 50 MG ORAL DAILY 08/19/18 Albuterol Sulfate* (Albuterol Sulfate* Neb) 0.083%-3 Ml Neb, 1.25 MG NEB Q4H, #30 VIAL 08/19/[address] [place] (Incruse Ellipta) 62.5 Mcg Blst.w.dev, 62.5 MCG IH DAILY 08/19/18 Allergies Allergies: Coded Allergies: No Known Drug Allergies (Verified Allergy, Unknown, 11/17/18) PMhx/Soc History of Surgery: Yes (litzy popliteal stent 3 yrs ago) Anesthesia Reaction: No Hx Neurological Disorder: No Hx Respiratory Disorders: Yes (sob 1yr, HX PNA) Hx Cardiac Disorders: No Hx Psychiatric Problems: Yes (anxiety) Hx Miscellaneous Medical Probl: Yes (pls see EMR) Hx Alcohol Use: Yes (former) Hx Substance Use: No Hx Tobacco Use: Yes Smoking Status: Former smoker FmHx Family History: No coronary disease Physical Exam Vitals Vital Signs Date Temp Pulse Resp B/P (MAP) Pulse Ox O2 O2 Flow FiO2 Time Delivery Rate 12/07/18 100 3.0 20:57 12/07/18 97 18 100 Nasal 3.0 21 20:53 Cannula 12/07/18 Nasal 4 20:45 Cannula 12/07/18 Nasal 4.0 20:00 Cannula 12/07/18 98.8 124 19 149/108 100 Nasal 20:00 (122) Cannula 12/07/18 98.8 118 19 174/110 99 19:51 (131) Physical Exam Const: Well-developed, well-nourished Head: Atraumatic, normocephalic Eyes: Normal Conjunctiva, PERRLA, EOMI, normal sclera, no nystagmus ENT: Normal External Ears, Nose and Mouth, moist mucus membranes. Neck: Full range of motion. No meningismus, no lymphadenopathy. Resp: Clear to auscultation bilaterally, no wheezing, rhonchi, rales Cardio: Regular rate and rhythm, no murmurs, S1 S2 present Abd: Soft, non tender x 4, non distended. Normal bowel sounds, no guarding or rebound, no pulsitile abdominal masses or bruits Skin: No petechiae or rashes, no ecchymosis , no maculopapular rash Back: No midline or flank tenderness Ext: No cyanosis, or edema, FROM x 4, normal inspection, neurovascularly intact x 4 Neur: Awake and alert, STR 5/5 x 4, sensation intact x 4, no focal findings, cerebellum intact Psych: Normal Mood and Affect Result Diagram: 12/07/18201912/07/182019 Results 24 hrs Laboratory Tests Test 12/07/18 20:20 White Blood Count 9.9 10^3/ul Red Blood Count 3.73 10^6/ul Hemoglobin 11.2 g/dl Hematocrit 36.0 % Mean Corpuscular Volume 96.5 fl Mean Corpuscular Hemoglobin 30.0 pg Mean Corpuscular Hemoglobin Concent 31.1 g/dl Red Cell Distribution Width 16.0 % Platelet Count 203 10^3/UL Mean Platelet Volume 9.6 fl Immature Granulocytes % 0.500 % Neutrophils % 78.2 % Lymphocytes % 5.8 % Monocytes % 8.3 % Eosinophils % 6.8 % Basophils % 0.4 % Nucleated Red Blood Cells % 0.0 /100WBC Immature Granulocytes # 0.050 10^3/ul Neutrophils # 7.7 10^3/ul Lymphocytes # 0.6 10^3/ul Monocytes # 0.8 10^3/ul Eosinophils # 0.7 10^3/ul Basophils # 0.0 10^3/ul Nucleated Red Blood Cells # 0.0 10^3/ul Sodium Level 141 mmol/L Potassium Level 4.7 mmol/L Chloride Level 98 mmol/L Carbon Dioxide Level 30 mmol/L Anion Gap 13 Blood Urea Nitrogen 23 mg/dl Creatinine 1.64 mg/dl Est Glomerular Filtrat Rate mL/min mL/min Glucose Level 110 mg/dl Calcium Level 9.4 mg/dl Total Bilirubin 0.4 mg/dl Direct Bilirubin 0.00 mg/dl Indirect Bilirubin 0.4 mg/dl Aspartate Amino Transf (AST/SGOT) 27 IU/L Alanine Aminotransferase (ALT/SGPT) 22 IU/L Alkaline Phosphatase 83 IU/L Total Protein 7.5 g/dl Albumin 4.1 g/dl Globulin 3.40 g/dl Albumin/Globulin Ratio 1.20 Current Medications Medications Dose Sig/Lilia Start Time Status Last (Trade) Ordered Route PRN Stop Time Admin Dose Reason Admin Sodium 500 ml @ Q1H STAT 12/07/18 DC 12/07/18 Chloride 500 mls/hr IV 20:38 21:01 12/07/18 21:37 Albuterol 5 mg ONCE STAT 12/07/18 DC 12/07/18 (Proventil HHN 20:38 20:53 0.083% (Neb)) 12/07/18 20:40 Cefepime HCl 50 ml @ ONCE STAT 12/07/18 DC 12/07/18 100 mls/hr IVPB 20:38 21:01 12/07/18 21:07 Vancomycin 250 ml @ ONCE STAT 12/07/18 HCl 125 mls/hr IVPB 20:38 12/07/18 22:37 Procedures/MDM PROCEDURE: XR Chest. CLINICAL INDICATION: chest pain TECHNIQUE: Single frontal view of the chest was obtained COMPARISON: CT CHEST 11/17/2018; CR CHEST 04/09/2018 FINDINGS: The heart size cannot be evaluated. There is evidence of severe scarring in the left lung with shift of the mediastinum to the left. There is no right pleural effusion or pneumothorax. There is right upper lobe scarring. RPTAT: AA IMPRESSION: Severe scarring in the left lung with marked shift of mediastinum to the left, unchanged . Mild right upper lobe scarring. .Frank Cueva MD, Date Time Electronically viewed and signed by .Frank Cueva MD, on 12/07/2018 21:39 .S/ CC: SOFIE NGUYỄN DO [phone] Patient does not have any pneumonia. The patient is having cough with white sputum production due to bronchitis most likely. Will discharge with inhaler prednisone and Z-Popeye. Blood looks unremarkable other than some prerenal azotemia Departure Diagnosis: Primary Impression: Bronchitis Condition: Stable SOFIE NGUYỄN DO Dec 07, 2018 20:52
[2018-12-07] MEDS ORDERED: ALBU8.5H8 INH (21:50)
[2018-12-07] MEDS ORDERED: PRED20TA PO (21:50)
[2018-12-07] MEDS ORDERED: AZIT250T PO (21:50)
[2018-12-07] MEDS ORDERED: DILTIAZEM 25 MG INJ IV ONE (23:00)
[2018-12-07] MEDS ORDERED: ONDANSETRON 4 MG INJ IV STA (23:04)
[2018-12-07] MEDS ORDERED: morphine 4 MG/ML VIAL IV STA (23:04)
[2018-12-07] MEDS: DILTIAZEM-D5W 125MG/125ML DRIP 125 ML IV SCH (23:18)
[2018-12-08] VITALS (16 sets, daily range): BP systolic 126–152; BP diastolic 67–89; PULSE 68–113; RESP 18–24
[2018-12-08] MEDS ORDERED: LEVALBUTEROL (NEB) 1.25 MG/0.5 ML AMP INH STA (01:37)
[2018-12-08] MEDS ORDERED: ONDANSETRON 4 MG INJ IV PRN ×2 (02:30→08:00)
[2018-12-08] MEDS ORDERED: ACETAMINOPHEN 325 MG TAB PO PRN (02:30)
[2018-12-08] MEDS ORDERED: AZITHROMYCIN 250 MG in SOD CHLORIDE 0.9% 250 ML IVPB SCH (08:00)
[2018-12-08] MEDS: CEFTRIAXONE 1 GM/50 ML (PMX) 50 ML IVPB SCH (09:05)
[2018-12-08] MEDS: METHYLPREDNISOLONE 40 MG INJ IV SCH ×3 (09:09→17:52)
--- NOTE | 2018-12-08 09:45 | HP ---
CATIAKENRICK 12/08/18 0945: Date/Time of Note Date/Time of Note DATE: 12/08/18 TIME: 09:41 Assessment/Plan VTE Prophylaxis Pharmacological prophylaxis: LMWH Lines/Catheters IV Catheter Type (from Nrs): Saline Lock Urinary Cath still in place: No Assessment/Plan Hospital Course 1. Uncontrolled atria fibrillation 2. Chronic obstructive pulmonary disease, exacerbation. Respiratory failure 3. Acute on chronic kidney disease. Creatinine is 1.64. 4. 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 5. History of tuberculosis with the left lung loss. 6. Normocytic normochromic anemia 7 Hx of urinary retention likely secondary prostate cancer 8 Hx of pneumonia right lung recently 9 CHF, BNP 3660 10. 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 11. Hypertension. 12. Hx of bilateral popliteal bypass. Assessment/Plan -IV azithromycin and Rocephin -pt is DNR/DNI per his sister and him. -ask to sign a POLST --cw Cardizem drip -C/W bipap 50 % -pain control -br treatment -cardiology dr Valente, called --pulmonology dr Naik/ Dr Hall. -GI prophylaxis Protonix -DVT prophylaxis Lovenox tomorrow after PT/PTT will be drawn Result Diagram: 12/07/18201912/07/182019 Results 24hrs Laboratory Tests Test 12/07/18 20:20 12/08/18 02:30 White Blood Count 9.9 Red Blood Count 3.73 L Hemoglobin 11.2 #L Hematocrit 36.0 #L Mean Corpuscular Volume 96.5 Mean Corpuscular Hemoglobin 30.0 Mean Corpuscular Hemoglobin Concent 31.1 L Red Cell Distribution Width 16.0 H Platelet Count 203 # Mean Platelet Volume 9.6 Immature Granulocytes % 0.500 H Neutrophils % 78.2 H Lymphocytes % 5.8 L Monocytes % 8.3 Eosinophils % 6.8 Basophils % 0.4 Nucleated Red Blood Cells % 0.0 Immature Granulocytes # 0.050 H Neutrophils # 7.7 H Lymphocytes # 0.6 L Monocytes # 0.8 Eosinophils # 0.7 H Basophils # 0.0 Nucleated Red Blood Cells # 0.0 Sodium Level 141 Potassium Level 4.7 Chloride Level 98 Carbon Dioxide Level 30 Anion Gap 13 Blood Urea Nitrogen 23 H Creatinine 1.64 H Est Glomerular Filtrat Rate mL/min Glucose Level 110 Calcium Level 9.4 Total Bilirubin 0.4 Direct Bilirubin 0.00 Indirect Bilirubin 0.4 Aspartate Amino Transf (AST/SGOT) 27 Alanine Aminotransferase (ALT/SGPT) 22 Alkaline Phosphatase 83 B-Type Natriuretic Peptide 3660 H Total Protein 7.5 Albumin 4.1 Globulin 3.40 H Albumin/Globulin Ratio 1.20 Blood Gas Specimen Source Blood arterial Arterial Blood Date Drawn 12/08/2018 3:00:22 AM Arterial Blood pH (Temp corrected) 7.405 Arterial Blood pCO2 (Temp correct) 40.1 Arterial Blood pO2 (Temp corrected) 179.9 H Arterial Blood HCO3 24.6 Arterial Blood Base Excess -0.1 Arterial Blood Oxygen Saturation 99.0 Juma Test ACCEPTAB Arterial Blood Gas Puncture Site Right Radial Arterial Blood Carboxyhemoglobin 0.3 Arterial Blood Methemoglobin 0.4 Blood Gas A-a O2 Differential 131.5 H Oxyhemoglobin Percent 98.3 Blood Gas Temperature 37.0 Blood Gas Respiration Rate 16.0 Blood Gas Actual Respiration Rate 34 Blood Gas Modality MASK - BIPAP FiO2 50.0 Blood Gas Pressure Support 10 Blood Gas IPAP/EPAP Ratio 15/5 Blood Gas Notified Whom MA Blood Gas Notified Time 12/08/2018 3:14:15 AM HPI/ROS Admit Date/Time Admit Date/Time Dec 08, 2018 at 02:04 Hx of Present Illness This is an 83-year-old male with a 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 The patient was then subsequently discharged on 11/22/0904/26/2019 on antibiotics and steroids. The patient since then had been living at SNF. According to the SNF, the patient was getting short of breath for the last day. He was also having hard time breathing. He has white sputum. IN ER pt went to tachyarrhythmia, afib 130s. Chest x-ray again showed the patient has chronic right lung scarring. He is admitted for further management. ROS Respiratory: pleuritic pain, shortness of breath PMH/Family/Social Past Medical History Medical History: hypertension, other (TB) Medications Current Medications Diltiazem HCl 125 ml @ 10 mls/hr [id number] IV Last administered on 3/23/19at 23:18; Admin Dose 10 MLS/HR; Start 12/07/18 at 23:00 Ondansetron HCl (Zofran Inj) 4 mg ER BRIDGE PRN IV NAUSEA/VOMITING; Start 12/08/18 at 02:30; Stop 12/09/18 at 02:29 Acetaminophen (Tylenol Tab) 650 mg ER BRIDGE PRN PO .MILD PAIN 1-3 OR TEMP; Start 12/08/18 at 02:30; Stop 12/09/18 at 02:29 Methylprednisolone Sodium Succinate (Solu-Medrol) 40 mg Q6 IV Last administered on 12/08/18at 09:09; Admin Dose 40 MG; Start 12/08/18 at 08:00 Ondansetron HCl (Zofran Inj) 4 mg Q4H PRN IV NAUSEA AND/OR VOMITING; Start 12/08/18 at 08:00 Ceftriaxone Sodium 50 ml @ 100 mls/hr Q24H IVPB Last administered on 12/08/18at 09:05; Admin Dose 100 MLS/HR; Start 12/08/18 at 08:00 Albuterol/ Ipratropium (Duoneb) 3 ml Q4HWA RESP THERAPY HHN ; Start 12/08/18 at 09:00 Azithromycin 250 mg/Sodium Chloride 250 ml @ 250 mls/hr Q24H IVPB ; Start 12/08/18 at 08:30 Coded Allergies: No Known Drug Allergies (Verified Allergy, Unknown, 11/17/18) Past Surgical History Past Surgical Hx: other (Hx of bilateral popliteal bypass.) Social History Alcohol Use: none Smoking Status: Former smoker Drug Use: none Exam/Review of Systems Vital Signs Vitals Vital Signs Date Temp Pulse Resp B/P (MAP) Pulse Ox O2 O2 Flow FiO2 Time Delivery Rate 12/08/18 83 08:12 12/08/18 99.6 20 126/70 97 07:57 (88) 12/08/18 50 07:40 12/08/18 Nasal 4.0 06:23 Cannula Exam Constitutional: alert, oriented Psych: no complaints Eyes: nl conjunctiva Neck: supple Respiratory: congested cough, diminished breath sounds, labored breathing, tactile fremitus Cardiovascular: irregular rhythm Gastrointestinal: soft Genitourinary - Male: CVA tenderness; No nl penis, No nl scrotum, No discharge, No other Musculoskeletal: nl extremities to inspection Skin: diaphoresis, other (pale) FELIX BHAGAT MD 12/08/18 1558: Assessment/Plan Assessment/Plan Assessment/Plan pt seen and examined with INSTRUMENT TECHNICIAN A Agree with above SOB > COPD EXACER> on iv steroids, abx , bipap , pul afib> cards poor prognosis DNR Dr stephenson called spoke to family Result Diagram: 12/07/18201912/07/182019 PMH/Family/Social Past Medical History Coded Allergies: No Known Drug Allergies (Verified Allergy, Unknown, 11/17/18) KENRICK BARDALES Dec 08, 2018 09:45 FELIX BHAGAT MD Dec 08, 2018 15:58
[2018-12-08] MEDS: ALBUTEROL/IPRATROPIUM (NEB) 3 ML AMP HHN SCH ×4 (10:36→20:58)
[2018-12-08] MEDS: AZITHROMYCIN 250 MG in SOD CHLORIDE 0.9% 250 ML IVPB SCH (11:05)
[2018-12-08] MEDS: DILTIAZEM-D5W 125MG/125ML DRIP 125 ML IV SCH (12:51)
[2018-12-08] MEDS ORDERED: DIGOXIN 500 MCG INJ IV ONE (14:00)
[2018-12-08] MEDS ORDERED: DILTIAZEM 25 MG INJ IV PRN (14:00)
--- NOTE | 2018-12-08 14:40 | CONS ---
Assessment/Plan Assessment/Plan Assessment/Plan (Daily) IMP: 1. 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 Likely representing an acute exacerbation. 2. Afib with RVR--likely driven by #1 3. CKD 4. Advanced Prostate Cancer 5. DNR/DNI RECS: 1. Bronchodilators ATC 2. BiPAP 3. Abx 4. Solumedrol IV 5. Rate control as per Cards 6. 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 Subjective hx not possible: pt critical Eyes: no complaints ENT: no complaints Respiratory: cough, shortness of breath Cardiovascular: no complaints Gastrointestinal: no complaints Genitourinary: no complaints Musculoskeletal: back pain Skin: no complaints Neurologic: no complaints Endocrine: no complaints Past Medical History Medical History: hypertension, other (TB) Home Meds Active Scripts Albuterol Sulfate* (Proair HFA*) 8.5 Gm Hfa.aer.ad, 2 PUFF INH Q4, #1 INHALER Prov:SOFIE NGUYỄN DO 12/07/18 Prednisone* (Prednisone*) 20 Mg Tab, 60 MG PO DAILY for 5 Days, TAB Prov:SOFIE NGUYỄN DO 12/07/18 Azithromycin* (Zithromax*) 250 Mg Tablet, 250 MG PO .DEJA DIRECTED, #6 TAB TAKE 500 MG (2 TABS) THE FIRST DAY THEN 250 MG (1 TAB) DAYS 2-5 Prov:SOFIE NGUYỄN DO 12/07/18 Reported Medications Cholecalciferol (D3-5) 5,000 Unit Capsule, 1 CAP ORAL DAILY 11/17/18 Suvorexant (Belsomra) 20 Mg Tablet, 20 MG ORAL HS PRN for ANXIETY 11/17/18 Bicalutamide* (Casodex*) 50 Mg Tablet, 50 MG ORAL DAILY 08/19/18 Albuterol Sulfate* (Albuterol Sulfate* Neb) 0.083%-3 Ml Neb, 1.25 MG NEB Q4H, #30 VIAL 08/19/18 Umeclidinium [place] (Incruse Ellipta) 62.5 Mcg Blst.w.dev, 62.5 MCG IH DAILY 08/19/18 Medications Current Medications Diltiazem HCl 125 ml @ 10 mls/hr [id number] IV Last administered on 12/08/18 12:51; Admin Dose 10 MLS/HR; Start 12/07/18 at 23:00 Ondansetron HCl (Zofran Inj) 4 mg ER BRIDGE PRN IV NAUSEA/VOMITING; Start 12/08/18 at 02:30; Stop 12/09/18 at 02:29 Acetaminophen (Tylenol Tab) 650 mg ER BRIDGE PRN PO .MILD PAIN 1-3 OR TEMP; Sta rt 12/08/18 at 02:30; Stop 12/09/18 at 02:29 Methylprednisolone Sodium Succinate (Solu-Medrol) 40 mg Q6 IV Last administered on 12/08/18 12:51; Admin Dose 40 MG; Start 12/08/18 at 08:00 Ondansetron HCl (Zofran Inj) 4 mg Q4H PRN IV NAUSEA AND/OR VOMITING; Start 12/08/18 at 08:00 Ceftriaxone Sodium 50 ml @ 100 mls/hr Q24H IVPB Last administered on 12/08/18 09:05; Admin Dose 100 MLS/HR; Start 12/08/18 at 08:00 Albuterol/ Ipratropium (Duoneb) 3 ml Q4HWA RESP THERAPY HHN Last administered on 12/08/18 13:37; Admin Dose 3 ML; Start 12/08/18 at 09:00 Azithromycin 250 mg/Sodium Chloride 250 ml @ 250 mls/hr Q24H IVPB Last administered on 12/08/18 11:05; Admin Dose 250 MLS/HR; Start 12/08/18 at 08:30 Pantoprazole (Protonix Tab) 40 mg DAILY@06 PO ; Start 12/09/18 at 06:00 Enoxaparin Sodium (Lovenox) 65 mg DAILY SC ; Start 12/09/18 at 09:00 Diltiazem HCl (Cardizem Iv) 5 mg Q4 PRN IV >105 Hold SBP<100; Start 12/08/18 at 14:00 Diltiazem HCl (Cardizem Cd) 120 mg BID PO ; Start 12/08/18 at 21:00 Allergies: Coded Allergies: No Known Drug Allergies (Verified Allergy, Unknown, 11/17/18) Past Surgical History Past Surgical Hx: other (Hx of bilateral popliteal bypass.) Family History Significant Family History: no pertinent family hx Social History Alcohol Use: none Smoking Status: Former smoker Drug Use: none Exam/Review of Systems Exam Vitals Vital Signs Date Temp Pulse Resp B/P (MAP) Pulse Ox O2 O2 Flow FiO2 Time Delivery Rate 12/08/18 10 4.0 13:47 12/08/18 88 30 45 13:44 12/08/18 99.6 126/70 07:57 (88) 12/08/18 Nasal 06:23 Cannula Constitutional: alert, oriented, well developed Head: normocephalic, atraumatic Eyes: nl conjunctiva, EOMI, nl lids, nl sclera Neck: supple Respiratory: diminished breath sounds Cardiovascular: irregular rhythm, jugular venous distention (JVD) Gastrointestinal: soft, nl liver, spleen, non-tender Musculoskeletal: nl extremities to inspection Extremities: normal pulses Neurological: DIRECTOR INTELLIGENCE ANALYSIS PROGRAMS II-XII intact Skin: nl turgor Results Result Diagram: 12/07/18201912/07/182019 Results 24hrs Laboratory Tests Test 12/07/18 20:20 12/08/18 02:30 12/08/18 08:02 White Blood Count 9.9 Red Blood Count 3.73 L Hemoglobin 11.2 #L Hematocrit 36.0 #L Mean Corpuscular 96.5 Volume Mean Corpuscular 30.0 Hemoglobin Mean Corpuscular 31.1 L Hemoglobin Concent Red Cell Distribution 16.0 H Width Platelet Count 203 # Mean Platelet Volume 9.6 Immature Granulocytes 0.500 H % Neutrophils % 78.2 H Lymphocytes % 5.8 L Monocytes % 8.3 Eosinophils % 6.8 Basophils % 0.4 Nucleated Red Blood 0.0 Cells % Immature Granulocytes 0.050 H # Neutrophils # 7.7 H Lymphocytes # 0.6 L Monocytes # 0.8 Eosinophils # 0.7 H Basophils # 0.0 Nucleated Red Blood 0.0 Cells # Sodium Level 141 Potassium Level 4.7 Chloride Level 98 Carbon Dioxide Level 30 Anion Gap 13 Blood Urea Nitrogen 23 H Creatinine 1.64 H Est Glomerular Filtrat Rate mL/min Glucose Level 110 Calcium Level 9.4 Total Bilirubin 0.4 Direct Bilirubin 0.00 Indirect Bilirubin 0.4 Aspartate Amino 27 Transf (AST/SGOT) Alanine 22 Aminotransferase (ALT /SGPT) Alkaline Phosphatase 83 B-Type Natriuretic 3660 H Peptide Total Protein 7.5 Albumin 4.1 Globulin 3.40 H Albumin/Globulin 1.20 Ratio Blood Gas Specimen Blood arterial Blood arterial Source Arterial Blood Date 12/08/2018 3:00:22 AM 12/08/2018 10:30:12 Drawn AM Arterial Blood pH 7.405 7.373 (Temp corrected) Arterial Blood pCO2 40.1 43.1 (Temp correct) Arterial Blood pO2 179.9 H 113.4 H (Temp corrected) Arterial Blood HCO3 24.6 24.5 Arterial Blood Base -0.1 -0.8 Excess Arterial Blood 99.0 98.2 Oxygen Saturation Juma Test ACCEPTAB ACCEPTAB Arterial Blood Gas Right Radial Left Radial Puncture Site Arterial 0.3 0.1 Blood Carboxyhemoglob in Arterial Blood 0.4 0.4 Methemoglobin Blood Gas A-a O2 131.5 H 93.3 H Differential Oxyhemoglobin Percent 98.3 97.7 Blood Gas Temperature 37.0 37.0 Blood Gas Respiration 16.0 Rate Blood Gas Actual 34 Respiration Rate Blood Gas Modality MASK - BIPAP NASAL CANNULA FiO2 50.0 36.0 Blood Gas Pressure 10 Support Blood Gas IPAP/EPAP 15/5 Ratio Blood Gas Notified [place] DT Whom Blood Gas Notified 12/08/2018 3:14:15 AM 12/08/2018 10:42:56 Time AM Medications Medication Current Medications Diltiazem HCl 125 ml @ 10 mls/hr [id number] IV Last administered on 12/08/18at 12:51; Admin Dose 10 MLS/HR; Start 12/07/18 at 23:00 Ondansetron HCl (Zofran Inj) 4 mg ER BRIDGE PRN IV NAUSEA/VOMITING; Start 12/08/18 at 02:30; Stop 12/09/18 at 02:29 Acetaminophen (Tylenol Tab) 650 mg ER BRIDGE PRN PO .MILD PAIN 1-3 OR TEMP; Start 12/08/18 at 02:30; Stop 12/09/18 at 02:29 Methylprednisolone Sodium Succinate (Solu-Medrol) 40 mg Q6 IV Last administered on 12/08/18at 12:51; Admin Dose 40 MG; Start 12/08/18 at 08:00 Ondansetron HCl (Zofran Inj) 4 mg Q4H PRN IV NAUSEA AND/OR VOMITING; Start 12/08/18 at 08:00 Ceftriaxone Sodium 50 ml @ 100 mls/hr Q24H IVPB Last administered on 12/08/18at 09:05; Admin Dose 100 MLS/HR; Start 12/08/18 at 08:00 Albuterol/ Ipratropium (Duoneb) 3 ml Q4HWA RESP THERAPY HHN Last administered on 12/08/18at 13:37; Admin Dose 3 ML; Start 12/08/18 at 09:00 Azithromycin 250 mg/Sodium Chloride 250 ml @ 250 mls/hr Q24H IVPB Last administered on 12/08/18at 11:05; Admin Dose 250 MLS/HR; Start 12/08/18 at 08:30 Pantoprazole (Protonix Tab) 40 mg DAILY@06 PO ; Start 12/09/18 at 06:00 Enoxaparin Sodium (Lovenox) 65 mg DAILY SC ; Start 12/09/18 at 09:00 Diltiazem HCl (Cardizem Iv) 5 mg Q4 PRN IV >105 Hold SBP<100; Start 12/08/18 at 14:00 Diltiazem HCl (Cardizem Cd) 120 mg BID PO ; Start 12/08/18 at 21:00 BAO DIXON MD Dec 08, 2018 14:40
--- NOTE | 2018-12-08 15:19 | CONS ---
DATE OF ADMISSION: 12/08/2018 DATE OF CONSULTATION: 12/08/2018 TYPE OF CONSULTATION: Cardiology. REASON FOR CONSULTATION: Atrial fibrillation. REQUESTING PHYSICIAN: Felix Hart MD HISTORY OF PRESENT ILLNESS: Mr. 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 Upon arrival, temperature was 98.8, blood pressure 134/110, pulse 118, respiratory rate 19, satti ng 99%. The patient's labs revealed white blood cell count of 9.9, hemoglobin 11.2, platelet count o f 203, sodium 141, potassium 4.7, creatinine 1.64, BUN 23, BNP of 3660, ABG with a pH of 7.4, PaO2 of 179, a pCO2 of 40. The patient's chest x-ray revealed severe scarring of left lung with marked shif t to mediastinal left, unchanged mild right upper lobe scarring. The patient's electrocardiogram is not in chart for my review at this time. The patient was admitted to the floor and required initiati on of BiPAP, treated with broad spectrum antibiotics, steroids, bronchodilators and placed on diltiaz em drip for rate control at this time. PAST MEDICAL HISTORY: As above in HPI with patient undergoing an echo in 08/2018 at that time revea ling a preserved EF of 60% with right atrial enlargement, trace mitral and moderate tricuspid regurgi tation. MEDICATIONS CURRENTLY IN HOSPITAL: 1. Lovenox 40 mg subcutaneous daily. 2. Protonix 40 mg daily. 3. DuoNeb. 4. Azithromycin. 5. Solu-Medrol 40 mg IV q.8. 6. Zofran. 7. Ceftriaxone. 8. Diltiazem drip. ALLERGIES: NO KNOWN DRUG ALLERGIES. SOCIAL HISTORY: No current tobacco, EtOH or illicit drug use. FAMILY HISTORY: No history of sudden cardiac or early CAD. REVIEW OF SYSTEMS: As above in HPI. CONSTITUTIONAL: No fevers, chills. PULMONARY: Positive shortness of breath, respiratory failure on BiPAP. CARDIOVASCULAR: Atrial fibrillation. GASTROINTESTINAL: No vomiting. GENITOURINARY: Renal failure. PSYCHIATRIC: No documented psych history. NEUROLOGIC: No documented history of CVA. ENDOCRINE: No documented history of diabetes mellitus or thyroid disease. PHYSICAL EXAMINATION: VITAL SIGNS: Temperature of 99.6, blood pressure 126/70, pulse 82, respiratory rate 20, satting 97%. GENERAL: The patient is on BiPAP in respiratory distress. NECK: JVP is approximately 9 cm of water. CHEST: Decreased air movement throughout. HEART: Irregularly irregular, I/ systolic murmur. ABDOMEN: Positive bowel sounds, soft. EXTREMITIES: No significant pitting edema, 1+ pulses bilateral posterior tibial. LABORATORY DATA: Most recently from today, BNP of 3660. IMAGING STUDIES: As above in HPI. No further imaging studies for my review at this time. ELECTROCARDIOGRAM: No electrocardiograms for my review at this time. IMPRESSION: 1. Atrial fibrillation, currently rate controlled, on diltiazem drip. 2. Increased BNP, assess for congestive heart failure. 3. History of hypertension, currently under reasonable control. 4. Respiratory failure, on BiPAP. 5. Chronic obstructive pulmonary disease exacerbation. 6. Acute on chronic renal failure. 7. Lower extremity peripheral bypass. 8. Anemia. RECOMMENDATIONS: 1. At this time, we would maintain the patient on telemetry monitoring to follow rhythm and rate con trol closely. 2. We will give patient dose of digoxin and write for IV push diltiazem round the clock which can be used to control the patient's heart rate thereafter as necessary and wean off the drip as possible. 3. We would initiate the patient on Lasix diuresis, following strict I's and O's and creatinine to g rade diuresis closely. 4. Continue the patient's steroids, bronchodilators, antibiotics and ongoing BiPAP support. Thank you for allowing me to take part in the care of this patient. I will continue to follow him ve ry closely with you with further recommendations to be made as the patient progresses through his [facility] clinical course. Dictated By: WALTER WARD/SONYA Conf#: [id number] DID#: [id number] CC: FELIX HART;*EndCC*
[2018-12-08] MEDS: IPRATROPIUM 0.03% 30 ML NASAL SPRAY NASAL SCH ×2 (16:00→21:00)
--- NOTE | 2018-12-08 16:30 | CONS ---
Assessment/Plan Assessment/Plan Assessment/Plan (Daily) End-stage lung disease History of tuberculosis, left lung loss Atrial fibrillation with RVR Prostate cancer with metastases Congestive heart failure Patient is in distress at this time on BiPAP also complaining that the mask is uncomfortable. He states that he is extremely short of breath and having chest pain. We will adjust as needed doses of morphine and a very low dose of Ativan this evening. Have left orders for nurses to call ,change to comfort measures tonight if and when patient becomes more symptomatic. Prognosis explained to both sisters in detail. Suggest general inpatient care tomorrow if patient survives throughout the night. Consultation Date/Type/Reason Admit Date/Time Dec 08, 2018 at 02:04 Date/Time of Note DATE: 12/08/18 TIME: 16:25 Hx of Present Illness This is an 83-year-old male admitted to [facility] with increasing shortness of breath on BiPAP. Patient has a long-standing history of recurrent hospitalizations secondary to end-stage lung disease, emphysema c omplicated by past medical history of tuberculosis and left lung loss. Patient is extremely short of breath at this time family members are at the bedside who are speaking on his behalf. I have asked patient if he has given permission for his sisters to make all decisions on his behalf to keep him comfortable tonight. He answered affirmatively. At this time patient is extremely dyspneic. He has comorbid medical problems including atrial fibrillation, acute on chronic kidney disease, history of prostate cancer with metastasis, congestive heart failure with BNP of 3660. Patient has been seen by pulmonary medicine and cardiology and has received aggressive care but has continued to deteriorate since admission. He also complains of pleuritic chest pain with minimal movement and deep breathing. Patient's CODE STATUS is DNR/DNI. Patient on BiPAP cannot answer secondary to extreme shortness of breath Past Medical History Medical History: hypertension, other (TB) Home Meds Active Scripts Albuterol Sulfate* (Proair HFA*) 8.5 Gm Hfa.aer.ad, 2 PUFF INH Q4, #1 INHALER Prov:SOFIE NGUYỄN DO 12/07/18 Prednisone* (Prednisone*) 20 Mg Tab, 60 MG PO DAILY for 5 Days, TAB Prov:SOFIE NGUYỄN DO 12/07/18 Azithromycin* (Zithromax*) 250 Mg Tablet, 250 MG PO .DEJA DIRECTED, #6 TAB TAKE 500 MG (2 TABS) THE FIRST DAY THEN 250 MG (1 TAB) DAYS 2-5 Prov:GOPISOFIE BereketAna DO 12/07/18 Reported Medications Cholecalciferol (D3-5) 5,000 Unit Capsule, 1 CAP ORAL DAILY 11/17/18 Suvorexant (Belsomra) 20 Mg Tablet, 20 MG ORAL HS PRN for ANXIETY 11/17/18 Bicalutamide* (Casodex*) 50 Mg Tablet, 50 MG ORAL DAILY 08/19/18 Albuterol Sulfate* (Albuterol Sulfate* Neb) 0.083%-3 Ml Neb, 1.25 MG NEB Q4H, #30 VIAL 08/19/18 Umeclidinium [place] (Incruse Ellipta) 62.5 Mcg Blst.w.dev, 62.5 MCG IH DAILY 08/19/18 Medications Current Medications Diltiazem HCl 125 ml @ 10 mls/hr [id number] IV Last administered on 12/08/18at 12:51; Admin Dose 10 MLS/HR; Start 12/07/18 at 23:00 Ondansetron HCl (Zofran Inj) 4 mg ER BRIDGE PRN IV NAUSEA/VOMITING; Start 12/08/18 at 02:30; Stop 12/09/18 at 02:29 Acetaminophen (Tylenol Tab) 650 mg ER BRIDGE PRN PO .MILD PAIN 1-3 OR TEMP; Start 12/08/18 at 02:30; Stop 12/09/18 at 02:29 Methylprednisolone Sodium Succinate (Solu-Medrol) 40 mg Q6 IV Last administered on 12/08/18at 12:51; Admin Dose 40 MG; Start 12/08/18 at 08:00 Ondansetron HCl (Zofran Inj) 4 mg Q4H PRN IV NAUSEA AND/OR VOMITING; Start 12/08/18 at 08:00 Ceftriaxone Sodium 50 ml @ 100 mls/hr Q24H IVPB Last administered on 12/08/18at 09:05; Admin Dose 100 MLS/HR; Start 12/08/18 at 08:00 Albuterol/ Ipratropium (Duoneb) 3 ml Q4HWA RESP THERAPY HHN Last administered on 12/08/18at 13:37; Admin Dose 3 ML; Start 12/08/18 at 09:00 Azithromycin 250 mg/Sodium Chloride 250 ml @ 250 mls/hr Q24H IVPB Last administered on 12/08/18at 11:05; Admin Dose 250 MLS/HR; Start 12/08/18 at 08:30 Pantoprazole (Protonix Tab) 40 mg DAILY@06 PO ; Start 12/09/18 at 06:00 Enoxaparin Sodium (Lovenox) 65 mg DAILY SC ; Start 12/09/18 at 09:00 Diltiazem HCl (Cardizem Iv) 5 mg Q4 PRN IV >105 Hold SBP<100; Start 12/08/18 at 14:00 Diltiazem HCl (Cardizem Cd) 120 mg BID PO ; Start 12/08/18 at 21:00 Ipratropium [place] (Atrovent Nasal) 2 spray BID NASAL ; Start 12/08/18 at 16:00 Allergies: Coded Allergies: No Known Drug Allergies (Verified Allergy, Unknown, 11/17/18) Past Surgical History Past Surgical Hx: other (Hx of bilateral popliteal bypass.) Social History Alcohol Use: none Smoking Status: Former smoker Drug Use: none Exam/Review of Systems Exam Vitals Vital Signs Date Temp Pulse Resp B/P (MAP) Pulse Ox O2 O2 Flow FiO2 Time Delivery Rate 12/08/18 10 4.0 13:47 12/08/18 88 30 45 13:44 12/08/18 99.6 126/70 07:57 (88) 12/08/18 Nasal 06:23 Cannula Constitutional: distress, frail Psych: anxiety Head: normocephalic, atraumatic Eyes: nl conjunctiva, EOMI, nl lids, nl sclera, PERRL ENMT: nl external ears & nose, nl lips & teeth, nl nasal mucosa & septum Neck: supple, non-tender Respiratory: congested cough, crackles/rales, diminished breath sounds, intercostal retraction, labored breathing, wheezing Cardiovascular: irregular rhythm Gastrointestinal: soft, nl liver, spleen, non-tender Neurological: PLANT BUYER II-XII intact, nl mental status Results Result Diagram: 12/07/18201912/07/182019 Results 24hrs Laboratory Tests Test 12/07/18 20:20 12/08/18 02:30 12/08/18 08:02 12/08/18 14:45 White Blood 9.9 Count Red Blood Count 3.73 L Hemoglobin 11.2 #L Hematocrit 36.0 #L Mean Corpuscular 96.5 Volume Mean Corpuscular 30.0 Hemoglobin Mean Corpuscular 31.1 L Hemoglobin Shyla nt Red Cell 16.0 H Distribution Width Platelet Count 203 # Mean Platelet 9.6 Volume Immature 0.500 H Granulocytes % Neutrophils % 78.2 H Lymphocytes % 5.8 L Monocytes % 8.3 Eosinophils % 6.8 Basophils % 0.4 Nucleated Red 0.0 Blood Cells % Immature 0.050 H Granulocytes # Neutrophils # 7.7 H Lymphocytes # 0.6 L Monocytes # 0.8 Eosinophils # 0.7 H Basophils # 0.0 Nucleated Red 0.0 Blood Cells # Sodium Level 141 Potassium Level 4.7 Chloride Level 98 Carbon Dioxide 30 Level Anion Gap 13 Blood Urea 23 H Nitrogen Creatinine 1.64 H Est Glomerular Filtrat Rate mL/min Glucose Level 110 Calcium Level 9.4 Total Bilirubin 0.4 Direct Bilirubin 0.00 Indirect 0.4 Bilirubin Aspartate Amino 27 Transf (AST/SGOT ) Alanine 22 Aminotransferase (ALT/SGPT) Alkaline 83 Phosphatase B-Type 3660 H Natriuretic Peptide Total Protein 7.5 Albumin 4.1 Globulin 3.40 H Albumin/Globulin 1.20 Ratio Blood Gas Blood arterial Blood arterial Specimen Source Arterial Blood 12/08/2018 3:00: 12/08/2018 10:30 Date Drawn 22 AM :12 AM Arterial Blood 7.405 7.373 pH (Temp corrected) Arterial Blood 40.1 43.1 pCO2 (Temp correct) Arterial Blood 179.9 H 113.4 H pO2 (Temp corrected) Arterial Blood 24.6 24.5 HCO3 Arterial Blood -0.1 -0.8 Base Excess Arterial Blood 99.0 98.2 Oxygen Saturatio n Juma Test ACCEPTAB ACCEPTAB Arterial Blood Right Radial Left Radial Gas Puncture Site Arterial 0.3 0.1 Blood Carboxyhem oglobin Arterial Blood 0.4 0.4 Methemoglobin Blood Gas A-a O2 131.5 H 93.3 H Differential Oxyhemoglobin 98.3 97.7 Percent Blood Gas 37.0 37.0 Temperature Blood Gas 16.0 Respiration Rate Blood Gas Actual 34 Respiration Rate Blood Gas MASK - BIPAP NASAL CANNULA Modality FiO2 50.0 36.0 Blood Gas 10 Pressure Support Blood Gas 15/ IPAP/EPAP Ratio Blood Gas MA DT Notified Whom Blood Gas 12/08/2018 3:14: 12/08/2018 10:42 Notified Time 15 AM :56 AM Prothrombin Time 12.9 Prothrombin Time 1.0 Ratio INR 0.96 International Normalized Ratio Thyroid 0.690 Stimulating Hormone (TSH) Medications Medication Current Medications Diltiazem HCl 125 ml @ 10 mls/hr [id number] IV Last administered on 12/08/18 12:51; Admin Dose 10 MLS/HR; Start 12/07/18 at 23:00 Ondansetron HCl (Zofran Inj) 4 mg ER BRIDGE PRN IV NAUSEA/VOMITING; Start 12/08/18 at 02:30; Stop 12/09/18 at 02:29 Acetaminophen (Tylenol Tab) 650 mg ER BRIDGE PRN PO .MILD PAIN 1-3 OR TEMP; Start 12/08/18 at 02:30; Stop 12/09/18 at 02:29 Methylprednisolone Sodium Succinate (Solu-Medrol) 40 mg Q6 IV Last administered on 12/08/18 12:51; Admin Dose 40 MG; Start 12/08/18 at 08:00 Ondansetron HCl (Zofran Inj) 4 mg Q4H PRN IV NAUSEA AND/OR VOMITING; Start 12/08/18 at 08:00 Ceftriaxone Sodium 50 ml @ 100 mls/hr Q24H IVPB Last administered on 12/08/18 09:05; Admin Dose 100 MLS/HR; Start 12/08/18 at 08:00 Albuterol/ Ipratropium (Duoneb) 3 ml Q4HWA RESP THERAPY HHN Last administered on 12/08/18 13:37; Admin Dose 3 ML; Start 12/08/18 at 09:00 Azithromycin 250 mg/Sodium Chloride 250 ml @ 250 mls/hr Q24H IVPB Last administered on 12/08/18 11:05; Admin Dose 250 MLS/HR; Start 12/08/18 at 08:30 Pantoprazole (Protonix Tab) 40 mg DAILY@06 PO ; Start 12/09/18 at 06:00 Enoxaparin Sodium (Lovenox) 65 mg DAILY SC ; Start 12/09/18 at 09:00 Diltiazem HCl (Cardizem Iv) 5 mg Q4 PRN IV >105 Hold SBP<100; Start 12/08/18 at 14:00 Diltiazem HCl (Cardizem Cd) 120 mg BID PO ; Start 12/08/18 at 21:00 Ipratropium [place] (Atrovent Nasal) 2 spray BID NASAL ; Start 12/08/18 at 16:00 MARIA ELENA BEAVERS Dec 08, 2018 16:30
[2018-12-08] MEDS: DILTIAZEM (CD) 120 MG CAP PO SCH (20:10)
[2018-12-09] VITALS (21 sets, daily range): BP systolic 131–178; BP diastolic 71–101; PULSE 69–107; RESP 22–26
[2018-12-09] MEDS: METHYLPREDNISOLONE 40 MG INJ IV SCH ×4 (01:56→18:58)
[2018-12-09] MEDS: PANTOPRAZOLE (EC) 40 MG TAB PO SCH (06:09)
[2018-12-09] MEDS: CEFTRIAXONE 1 GM/50 ML (PMX) 50 ML IVPB SCH (07:42)
[2018-12-09] MEDS: AZITHROMYCIN 250 MG in SOD CHLORIDE 0.9% 250 ML IVPB SCH (08:26)
[2018-12-09] MEDS ORDERED: ENOXAPARIN 40 MG/0.4 ML SYG SC SCH (09:00)
[2018-12-09] MEDS: ALBUTEROL/IPRATROPIUM (NEB) 3 ML AMP HHN SCH ×4 (09:11→19:58)
[2018-12-09] MEDS: DILTIAZEM (CD) 120 MG CAP PO SCH (09:41)
[2018-12-09] MEDS: ENOXAPARIN 80 MG/0.8 ML SYG SC SCH (10:00)
--- NOTE | 2018-12-09 11:27 | PN ---
Date/Time of Note Date/Time of Note DATE: 12/09/18 TIME: 11:15 Assessment/Plan VTE Prophylaxis Risk score (from Ns)>0 risk: 8 SCD applied (from [facility] [place] SCD contraindicated: low risk/ambulating Pharmacological prophylaxis: NA/contraindicated Pharm contraindication: low risk/ambulating Lines/Catheters IV Catheter Type (from [facility]): Saline Lock Urinary Cath still in place: No Assessment/Plan Assessment/Plan 1. 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 Likely representing an acute exacerbation. 2. Afib with RVR--likely driven by #1 now rate controlled 3. CKD 4. 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 6. Normocytic normochromic anemia 7 Hx of urinary retention likely secondary prostate cancer 8 Hx of pneumonia right lung recently 9 CHF, BNP 3660 10. 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 11. Hypertension. 12. Hx of bilateral popliteal bypass. Recs -Treated with Rocephin/azithromycin -cw with Solu-Medrol 40 IV every 6 -cw with diltiazem 120 twice daily -lovenox 60 A. fib -cwmorphine/ativan - GI/dvt prophylaxis - cw BIPAP - POOR Prognosis ? Comfort care, patient is able to make his own decisions, spoke to the family at the bedside Result Diagram: 12/09/18 0544 12/09/18 0544 Results 24hrs Laboratory Tests Test 12/08/18 14:45 12/08/18 17:38 12/09/18 00:19 12/09/18 05:00 Prothrombin Time 12.9 Prothrombin Time 1.0 Ratio INR International 0.96 Normalized Ratio Thyroid 0.690 Stimulating Hormone (TSH) Creatine Kinase 326 H 266 H Creatine Kinase 2.9 3.3 Index Creatinine Kinase 9.33 H 8.74 H MB (Mass) Troponin I 0.040 0.047 Blood Gas Blood arterial Specimen Source Arterial Blood 12/09/2018 5:15:1 Date Drawn 2 AM Arterial Blood pH 7.401 (Temp corrected) Arterial Blood 39.0 pCO2 (Temp correct) Arterial Blood 95.9 H pO2 (Temp corrected) Arterial Blood 23.7 HCO3 Arterial Blood -0.9 Base Excess Arterial Blood 97.0 Oxygen Saturation Juma Test ACCEPTAB Arterial Blood Right Radial Gas Puncture Site Arterial 0.4 Blood Carboxyhemo globin Arterial Blood 0.2 Methemoglobin Blood Gas A-a O2 108.3 H Differential Oxyhemoglobin 96.4 Percent Blood Gas 37.0 Temperature Blood Gas 16.0 Respiration Rate Blood Gas Actual 30 Respiration Rate Blood Gas MASK - BIPAP Modality FiO2 35.0 Blood Gas 10 Pressure Support Blood Gas 15/5 IPAP/EPAP Ratio Blood Gas NE Notified Whom Blood Gas 12/09/2018 5:32:0 Notified Time 6 AM Test 12/09/18 05:44 White Blood Count 11.1 H Red Blood Count 3.31 L Hemoglobin 10.1 L Hematocrit 31.7 L Mean Corpuscular 95.8 Volume Mean Corpuscular 30.5 Hemoglobin Mean Corpuscular 31.9 L Hemoglobin Concen t Red Cell 15.7 H Distribution Width Platelet Count 186 Mean Platelet 9.5 Volume Immature 0.700 H Granulocytes % Neutrophils % 90.8 H Lymphocytes % 4.2 L Monocytes % 4.1 Eosinophils % 0.0 Basophils % 0.2 Nucleated Red 0.0 Blood Cells % Immature 0.080 H Granulocytes # Neutrophils # 10.1 H Lymphocytes # 0.5 L Monocytes # 0.5 Eosinophils # 0.0 Basophils # 0.0 Nucleated Red 0.0 Blood Cells # Prothrombin Time 13.9 Prothrombin Time 1.1 Ratio INR International 1.06 Normalized Ratio Activated 31.0 Partial Thrombopl ast Time Sodium Level 139 Potassium Level 4.5 Chloride Level 102 Carbon Dioxide 25 Level Anion Gap 12 Blood Urea 28 H Nitrogen Creatinine 1.19 Est Glomerular Filtrat Rate mL/min Glucose Level 119 Calcium Level 9.2 Creatine Kinase 205 H Creatine Kinase 3.8 Index Creatinine Kinase 7.76 H MB (Mass) Troponin I 0.040 Triglycerides 72 Level Cholesterol Level 186 LDL Cholesterol, 95 Calculated HDL Cholesterol 77 H Cholesterol/HDL 2.4 Ratio Subjective 24 Hr Interval Summary Free Text/Dictation Patient is currently on BiPAP He feels short of breath Spoke to the sister also at the bedside they understand patient has poor prognosis, and he does not wish to be intubated Exam/Review of Systems Exam Vitals Vital Signs Date Temp Pulse Resp B/P (MAP) Pulse Ox O2 O2 Flow FiO2 Time Delivery Rate 12/09/18 87 97 35 09:34 12/09/18 24 09:19 12/09/18 98.0 159/101 Mask 07:53 (120) 12/08/18 4.0 17:35 Intake and Output 12/08/18 12/08/18 12/09/18 1515:00 23:00 07:00 IntakeIntake Total 120 ml 200 ml OutputOutput Total 700 ml BalanceBalance 120 ml -700 ml 200 ml Exam GENERAL: The patient is on BiPAP in respiratory distress. NECK: JVP is elevated CHEST: Decreased air movement throughout. HEART: Irregularly irregular, I/ systolic murmur. ABDOMEN: Positive bowel sounds, soft. EXTREMITIES: No significant pitting edema, 1+ pulses bilateral posterior tibial. Results Results 24hrs Laboratory Tests Test 12/08/18 14:45 12/08/18 17:38 12/09/18 00:19 12/09/18 05:00 Prothrombin Time 12.9 Prothrombin Time 1.0 Ratio INR International 0.96 Normalized Ratio Thyroid 0.690 Stimulating Hormone (TSH) Creatine Kinase 326 H 266 H Creatine Kinase 2.9 3.3 Index Creatinine Kinase 9.33 H 8.74 H MB (Mass) Troponin I 0.040 0.047 Blood Gas Blood arterial Specimen Source Arterial Blood 12/09/2018 5:15:1 Date Drawn 2 AM Arterial Blood pH 7.401 (Temp corrected) Arterial Blood 39.0 pCO2 (Temp correct) Arterial Blood 95.9 H pO2 (Temp corrected) Arterial Blood 23.7 HCO3 Arterial Blood -0.9 Base Excess Arterial Blood 97.0 Oxygen Saturation Juma Test ACCEPTAB Arterial Blood Right Radial Gas Puncture Site Arterial 0.4 Blood Carboxyhemo globin Arterial Blood 0.2 Methemoglobin Blood Gas A-a O2 108.3 H Differential Oxyhemoglobin 96.4 Percent Blood Gas 37.0 Temperature Blood Gas 16.0 Respiration Rate Blood Gas Actual 30 Respiration Rate Blood Gas MASK - BIPAP Modality FiO2 35.0 Blood Gas 10 Pressure Support Blood Gas 15/5 IPAP/EPAP Ratio Blood Gas NE Notified Whom Blood Gas 12/09/2018 5:32:0 Notified Time 6 AM Test 12/09/18 05:44 White Blood Count 11.1 H Red Blood Count 3.31 L Hemoglobin 10.1 L Hematocrit 31.7 L Mean Corpuscular 95.8 Volume Mean Corpuscular 30.5 Hemoglobin Mean Corpuscular 31.9 L Hemoglobin Concen t Red Cell 15.7 H Distribution Width Platelet Count 186 Mean Platelet 9.5 Volume Immature 0.700 H Granulocytes % Neutrophils % 90.8 H Lymphocytes % 4.2 L Monocytes % 4.1 Eosinophils % 0.0 Basophils % 0.2 Nucleated Red 0.0 Blood Cells % Immature 0.080 H Granulocytes # Neutrophils # 10.1 H Lymphocytes # 0.5 L Monocytes # 0.5 Eosinophils # 0.0 Basophils # 0.0 Nucleated Red 0.0 Blood Cells # Prothrombin Time 13.9 Prothrombin Time 1.1 Ratio INR International 1.06 Normalized Ratio Activated 31.0 Partial Thrombopl ast Time Sodium Level 139 Potassium Level 4.5 Chloride Level 102 Carbon Dioxide 25 Level Anion Gap 12 Blood Urea 28 H Nitrogen Creatinine 1.19 Est Glomerular Filtrat Rate mL/min Glucose Level 119 Calcium Level 9.2 Creatine Kinase 205 H Creatine Kinase 3.8 Index Creatinine Kinase 7.76 H MB (Mass) Troponin I 0.040 Triglycerides 72 Level Cholesterol Level 186 LDL Cholesterol, 95 Calculated HDL Cholesterol 77 H Cholesterol/HDL 2.4 Ratio Medications Medication Current Medications Diltiazem HCl 125 ml @ 10 mls/hr [id number] IV Last administered on 12/08/18 12:51; Admin Dose 10 MLS/HR; Start 12/07/18 at 23:00 Methylprednisolone Sodium Succinate (Solu-Medrol) 40 mg Q6 IV Last administered on 12/09/18 06:09; Admin Dose 40 MG; Start 12/08/18 at 08:00 Ondansetron HCl (Zofran Inj) 4 mg Q4H PRN IV NAUSEA AND/OR VOMITING; Start 12/08/18 at 08:00 Ceftriaxone Sodium 50 ml @ 100 mls/hr Q24H IVPB Last administered on 12/09/18 07:42; Admin Dose 100 MLS/HR; Start 12/08/18 at 08:00 Albuterol/ Ipratropium (Duoneb) 3 ml Q4HWA RESP THERAPY HHN Last administered on 12/09/18 09:11; Admin Dose 3 ML; Start 12/08/18 at 09:00 Azithromycin 250 mg/Sodium Chloride 250 ml @ 250 mls/hr Q24H IVPB Last administered on 12/09/18 08:26; Admin Dose 250 MLS/HR; Start 12/08/18 at 08:30 Pantoprazole (Protonix Tab) 40 mg DAILY@06 PO Last administered on 12/09/18at 06:09; Admin Dose 40 MG; Start 12/09/18 at 06:00 Enoxaparin Sodium (Lovenox) 65 mg DAILY SC Last administered on 12/09/18at 10:00; Admin Dose 65 MG; Start 12/09/18 at 09:00 Diltiazem HCl (Cardizem Iv) 5 mg Q4 PRN IV >105 Hold SBP<100; Start 12/08/18 at 14:00 Diltiazem HCl (Cardizem Cd) 120 mg BID PO Last administered on 12/09/18at 09:41; Admin Dose 120 MG; Start 12/08/18 at 21:00 Ipratropium [place] (Atrovent Nasal) 2 spray BID NASAL ; Start 12/08/18 at 16:00 Morphine Sulfate (morphine) 2 mg Q2H PRN IV SHORTNESS OF BREATH; Start 12/08/18 at 16:30 Lorazepam (Ativan) 0.25 mg Q4 PRN IV SEDATION; Start 12/08/18 at 16:30 FELIX BHAGAT MD Dec 09, 2018 11:26
--- NOTE | 2018-12-09 11:37 | CONS ---
Consult Date/Type/Reason Admit Date/Time Dec 08, 2018 at 02:04 Initial Consult Date 12/08/18 Type of Consult Pulmonary Date/Time of Note DATE: 12/09/18 TIME: 11:36 Subjective Patient remained stableHowever still requiring bilevel ventilation. Objective Vital Signs Date Temp Pulse Resp B/P (MAP) Pulse Ox O2 O2 Flow FiO2 Time Delivery Rate 12/09/18 98.5 93 26 152/77 99 Mask 11:31 (102) 12/09/18 35 11:30 12/08/18 4.0 17:35 Intake and Output 12/08/18 12/08/18 12/09/18 1515:00 23:00 07:00 IntakeIntake Total 120 ml 200 ml OutputOutput Total 700 ml BalanceBalance 120 ml -700 ml 200 ml Exam General elderly gentleman VITAL SIGNS: per chart NECK: Supple. No JVD or lymphadenopathy. CARDIAC EXAM: S1, S2. No added sounds or murmurs. CHEST: Diminished air entry bilaterally ABDOMEN: Soft, nontender. No guarding or rebound. EXTREMITIES: No cyanosis, clubbing or edema. NEUROLOGIC: Generalized weakness. No focal deficits. Vent Setting Fraction of Inspired Oxygen pe: 35 Results/Medications Result Diagram: 12/09/18 0544 12/09/18 0544 Results 24 hrs Laboratory Tests Test 12/08/18 14:45 12/08/18 17:38 12/09/18 00:19 12/09/18 05:00 Prothrombin Time 12.9 Prothrombin Time 1.0 Ratio INR International 0.96 Normalized Ratio Thyroid 0.690 Stimulating Hormone (TSH) Creatine Kinase 326 H 266 H Creatine Kinase 2.9 3.3 Index Creatinine Kinase 9.33 H 8.74 H MB (Mass) Troponin I 0.040 0.047 Blood Gas Blood arterial Specimen Source Arterial Blood 12/09/2018 5:15:1 Date Drawn 2 AM Arterial Blood pH 7.401 (Temp corrected) Arterial Blood 39.0 pCO2 (Temp correct) Arterial Blood 95.9 H pO2 (Temp corrected) Arterial Blood 23.7 HCO3 Arterial Blood -0.9 Base Excess Arterial Blood 97.0 Oxygen Saturation Juma Test ACCEPTAB Arterial Blood Right Radial Gas Puncture Site Arterial 0.4 Blood Carboxyhemo globin Arterial Blood 0.2 Methemoglobin Blood Gas A-a O2 108.3 H Differential Oxyhemoglobin 96.4 Percent Blood Gas 37.0 Temperature Blood Gas 16.0 Respiration Rate Blood Gas Actual 30 Respiration Rate Blood Gas MASK - BIPAP Modality FiO2 35.0 Blood Gas 10 Pressure Support Blood Gas 15/5 IPAP/EPAP Ratio Blood Gas MA Notified Whom Blood Gas 12/09/2018 5:32:0 Notified Time 6 AM Test 12/09/18 05:44 White Blood Count 11.1 H Red Blood Count 3.31 L Hemoglobin 10.1 L Hematocrit 31.7 L Mean Corpuscular 95.8 Volume Mean Corpuscular 30.5 Hemoglobin Mean Corpuscular 31.9 L Hemoglobin Concen t Red Cell 15.7 H Distribution Width Platelet Count 186 Mean Platelet 9.5 Volume Immature 0.700 H Granulocytes % Neutrophils % 90.8 H Lymphocytes % 4.2 L Monocytes % 4.1 Eosinophils % 0.0 Basophils % 0.2 Nucleated Red 0.0 Blood Cells % Immature 0.080 H Granulocytes # Neutrophils # 10.1 H Lymphocytes # 0.5 L Monocytes # 0.5 Eosinophils # 0.0 Basophils # 0.0 Nucleated Red 0.0 Blood Cells # Prothrombin Time 13.9 Prothrombin Time 1.1 Ratio INR International 1.06 Normalized Ratio Activated 31.0 Partial Thrombopl ast Time Sodium Level 139 Potassium Level 4.5 Chloride Level 102 Carbon Dioxide 25 Level Anion Gap 12 Blood Urea 28 H Nitrogen Creatinine 1.19 Est Glomerular Filtrat Rate mL/min Glucose Level 119 Calcium Level 9.2 Creatine Kinase 205 H Creatine Kinase 3.8 Index Creatinine Kinase 7.76 H MB (Mass) Troponin I 0.040 Triglycerides 72 Level Cholesterol Level 186 LDL Cholesterol, 95 Calculated HDL Cholesterol 77 H Cholesterol/HDL 2.4 Ratio Medications Current Medications Diltiazem HCl 125 ml @ 10 mls/hr [id number] IV Last administered on 12/08/18at 12:51; Admin Dose 10 MLS/HR; Start 12/07/18 at 23:00 Methylprednisolone Sodium Succinate (Solu-Medrol) 40 mg Q6 IV Last administered on 12/09/18at 06:09; Admin Dose 40 MG; Start 12/08/18 at 08:00 Ondansetron HCl (Zofran Inj) 4 mg Q4H PRN IV NAUSEA AND/OR VOMITING; Start 12/08/18 at 08:00 Ceftriaxone Sodium 50 ml @ 100 mls/hr Q24H IVPB Last administered on 12/09/18 07:42; Admin Dose 100 MLS/HR; Start 12/08/18 at 08:00 Albuterol/ Ipratropium (Duoneb) 3 ml Q4HWA RESP THERAPY HHN Last administered on 12/09/18 09:11; Admin Dose 3 ML; Start 12/08/18 at 09:00 Azithromycin 250 mg/Sodium Chloride 250 ml @ 250 mls/hr Q24H IVPB Last administered on 12/09/18 08:26; Admin Dose 250 MLS/HR; Start 12/08/18 at 08:30 Pantoprazole (Protonix Tab) 40 mg DAILY@06 PO Last administered on 12/09/18 06:09; Admin Dose 40 MG; Start 12/09/18 at 06:00 Enoxaparin Sodium (Lovenox) 65 mg DAILY SC Last administered on 12/09/18at 10:00; Admin Dose 65 MG; Start 12/09/18 at 09:00 Diltiazem HCl (Cardizem Iv) 5 mg Q4 PRN IV >105 Hold SBP<100; Start 12/08/18 at 14:00 Diltiazem HCl (Cardizem Cd) 120 mg BID PO Last administered on 12/09/18 09:41; Admin Dose 120 MG; Start 12/08/18 at 21:00 Ipratropium [place] (Atrovent Nasal) 2 spray BID NASAL ; Start 12/08/18 at 16:00 Morphine Sulfate (morphine) 2 mg Q2H PRN IV SHORTNESS OF BREATH; Start 12/08/18 at 16:30 Lorazepam (Ativan) 0.25 mg Q4 PRN IV SEDATION; Start 12/08/18 at 16:30 Assessment/Plan Hospital Course (Demo Recall) IMP: 1. 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 Likely representing an acute exacerbation. 2. Afib with RVR--likely driven by #1 3. CKD 4. Advanced Prostate Cancer 5. DNR/DNI RECS: 1. Bronchodilators ATC 2. BiPAP 3. Abx 4. Solumedrol IV 5. Rate control as per Cards 6. DVT prophylaxis with Prognosis still remains poor. SHERI GILL MD, [facility] Dec 09, 2018 11:37
--- NOTE | 2018-12-09 11:58 | CONS ---
Assessment/Plan Assessment/Plan Hospital Course (Demo Recall) IMPRESSION: 1. Atrial fibrillation-very mild rvr 2. Increased BNP, assess for congestive heart failure. 3. History of hypertension, currently under reasonable control. 4. Respiratory failure, on BiPAP. 5. Chronic obstructive pulmonary disease exacerbation. 6. Acute on chronic renal failure. 7. Lower extremity peripheral bypass. 8. Anemia. 9. renal failure-ioverall improved Recc; -Tele -increase diltiazem to improve overall HR control -Contineu BIPAP resp support -Contineu lovenox -Contine bax's and f/u cx data -gentle lasix diuresis Consultation Date/Type/Reason Admit Date/Time Dec 08, 2018 at 02:04 Initial Consult Date 12/08/18 Type of Consult Cardiology Reason for Consultation AF Requesting Provider: FELIX BHAGAT MD Date/Time of Note DATE: 12/09/18 TIME: 11:53 Exam/Review of Systems Vital Signs Vitals Vital Signs Date Temp Pulse Resp B/P (MAP) Pulse Ox O2 O2 Flow FiO2 Time Delivery Rate 12/09/18 98.5 93 26 152/77 99 Mask 11:31 (102) 12/09/18 35 11:30 12/08/18 4.0 17:35 Intake and Output 12/08/18 12/08/18 12/09/18 1515:00 23:00 07:00 IntakeIntake Total 120 ml 200 ml OutputOutput Total 700 ml BalanceBalance 120 ml -700 ml 200 ml Exam Exam Review of Systems: CONSTITUTIONAL: No fevers, chills. PULMONARY: on BIPAP CARDIOVASCULAR: No chest pain/palpitations GASTROINTESTINAL: No nausea/vomiting. GENITOURINARY: No hematuria/dysuria. MUSCULOSKELETAL: No myagias/arthalgias. PSYCHIATRIC: The patient denies depression. NEUROLOGIC: No weakness Constitutional: alert Psych: no complaints Head: normocephalic ENMT: other (BIPAP in place) Neck: supple, jvd (9 cm water) Respiratory: diminished breath sounds (at bases/B) Cardiovascular: regular rate and rhythm Gastrointestinal: soft, non-tender Musculoskeletal: muscle weakness (mild generalized) Extremities: edema (none) Labs Result Diagram: 12/09/18 0544 12/09/18 0544 Results 24hrs Laboratory Tests Test 12/08/18 14:45 12/08/18 17:38 12/09/18 00:19 12/09/18 05:00 Prothrombin Time 12.9 Prothrombin Time 1.0 Ratio INR International 0.96 Normalized Ratio Thyroid 0.690 Stimulating Hormone (TSH) Creatine Kinase 326 H 266 H Creatine Kinase 2.9 3.3 Index Creatinine Kinase 9.33 H 8.74 H MB (Mass) Troponin I 0.040 0.047 Blood Gas Blood arterial Specimen Source Arterial Blood 12/09/2018 5:15:1 Date Drawn 2 AM Arterial Blood pH 7.401 (Temp corrected) Arterial Blood 39.0 pCO2 (Temp correct) Arterial Blood 95.9 H pO2 (Temp corrected) Arterial Blood 23.7 HCO3 Arterial Blood -0.9 Base Excess Arterial Blood 97.0 Oxygen Saturation Juma Test ACCEPTAB Arterial Blood Right Radial Gas Puncture Site Arterial 0.4 Blood Carboxyhemo globin Arterial Blood 0.2 Methemoglobin Blood Gas A-a O2 108.3 H Differential Oxyhemoglobin 96.4 Percent Blood Gas 37.0 Temperature Blood Gas 16.0 Respiration Rate Blood Gas Actual 30 Respiration Rate Blood Gas MASK - BIPAP Modality FiO2 35.0 Blood Gas 10 Pressure Support Blood Gas 15 IPAP/EPAP Ratio Blood Gas MS Notified Whom Blood Gas 12/09/2018 5:32:0 Notified Time 6 AM Test 12/09/18 05:44 White Blood Count 11.1 H Red Blood Count 3.31 L Hemoglobin 10.1 L Hematocrit 31.7 L Mean Corpuscular 95.8 Volume Mean Corpuscular 30.5 Hemoglobin Mean Corpuscular 31.9 L Hemoglobin Concen t Red Cell 15.7 H Distribution Width Platelet Count 186 Mean Platelet 9.5 Volume Immature 0.700 H Granulocytes % Neutrophils % 90.8 H Lymphocytes % 4.2 L Monocytes % 4.1 Eosinophils % 0.0 Basophils % 0.2 Nucleated Red 0.0 Blood Cells % Immature 0.080 H Granulocytes # Neutrophils # 10.1 H Lymphocytes # 0.5 L Monocytes # 0.5 Eosinophils # 0.0 Basophils # 0.0 Nucleated Red 0.0 Blood Cells # Prothrombin Time 13.9 Prothrombin Time 1.1 Ratio INR International 1.06 Normalized Ratio Activated 31.0 Partial Thrombopl ast Time Sodium Level 139 Potassium Level 4.5 Chloride Level 102 Carbon Dioxide 25 Level Anion Gap 12 Blood Urea 28 H Nitrogen Creatinine 1.19 Est Glomerular Filtrat Rate mL/min Glucose Level 119 Calcium Level 9.2 Creatine Kinase 205 H Creatine Kinase 3.8 Index Creatinine Kinase 7.76 H MB (Mass) Troponin I 0.040 Triglycerides 72 Level Cholesterol Level 186 LDL Cholesterol, 95 Calculated HDL Cholesterol 77 H Cholesterol/HDL 2.4 Ratio Medications Medications Current Medications Diltiazem HCl 125 ml @ 10 mls/hr [id number] IV Last administered on 12/08/18at 12:51; Admin Dose 10 MLS/HR; Start 12/07/18 at 23:00 Methylprednisolone Sodium Succinate (Solu-Medrol) 40 mg Q6 IV Last administered on 12/09/18 06:09; Admin Dose 40 MG; Start 12/08/18 at 08:00 Ondansetron HCl (Zofran Inj) 4 mg Q4H PRN IV NAUSEA AND/OR VOMITING; Start 12/08/18 at 08:00 Ceftriaxone Sodium 50 ml @ 100 mls/hr Q24H IVPB Last administered on 12/09/18at 07:42; Admin Dose 100 MLS/HR; Start 12/08/18 at 08:00 Albuterol/ Ipratropium (Duoneb) 3 ml Q4HWA RESP THERAPY HHN Last administered on 12/09/18 09:11; Admin Dose 3 ML; Start 12/08/18 at 09:00 Azithromycin 250 mg/Sodium Chloride 250 ml @ 250 mls/hr Q24H IVPB Last administered on 12/09/18 08:26; Admin Dose 250 MLS/HR; Start 12/08/18 at 08:30 Pantoprazole (Protonix Tab) 40 mg DAILY@06 PO Last administered on 12/09/18 06:09; Admin Dose 40 MG; Start 12/09/18 at 06:00 Enoxaparin Sodium (Lovenox) 65 mg DAILY SC Last administered on 12/09/18 10:00; Admin Dose 65 MG; Start 12/09/18 at 09:00 Diltiazem HCl (Cardizem Iv) 5 mg Q4 PRN IV >105 Hold SBP<100; Start 12/08/18 at 14:00 Diltiazem HCl (Cardizem Cd) 120 mg BID PO Last administered on 12/09/18 09:41; Admin Dose 120 MG; Start 12/08/18 at 21:00 Ipratropium [place] (Atrovent Nasal) 2 spray BID NASAL ; Start 12/08/18 at 16:00 Morphine Sulfate (morphine) 2 mg Q2H PRN IV SHORTNESS OF BREATH; Start 12/08/18 at 16:30 Lorazepam (Ativan) 0.25 mg Q4 PRN IV SEDATION; Start 12/08/18 at 16:30 WALTER HENDERSON Dec 09, 2018 11:58
[2018-12-09] MEDS: DILTIAZEM-D5W 125MG/125ML DRIP 125 ML IV SCH ×2 (12:30)
--- NOTE | 2018-12-09 18:40 | RADRPT ---
Vent Rate: 85 bpm RR Interval: 0 msec ND Interval: 0 msec QRS Duration: 96 msec QT Interval: 406 msec QTC Interval: 483 msec P-R-T [place]: 0 - 92 - 80 degrees Atrial fibrillation Lateral infarct , age undetermined Abnormal ECG Electronically Signed By: Jacoby Metz
[2018-12-09] MEDS: IPRATROPIUM 0.03% 30 ML NASAL SPRAY NASAL SCH ×3 (19:45→21:42)
[2018-12-09] MEDS: morphine 2 MG INJ IV PRN (21:26)
[2018-12-09] MEDS: DILTIAZEM (CD) 180 MG CAP PO SCH (21:26)
[2018-12-10] VITALS (21 sets, daily range): BP systolic 135–174; BP diastolic 78–110; PULSE 77–99; RESP 19–22
[2018-12-10] MEDS: METHYLPREDNISOLONE 40 MG INJ IV SCH ×4 (00:25→18:04)
[2018-12-10] MEDS: PANTOPRAZOLE (EC) 40 MG TAB PO SCH (05:44)
[2018-12-10] MEDS: CEFTRIAXONE 1 GM/50 ML (PMX) 50 ML IVPB SCH (08:45)
[2018-12-10] MEDS: IPRATROPIUM 0.03% 30 ML NASAL SPRAY NASAL SCH ×2 (08:51→20:39)
[2018-12-10] MEDS: DILTIAZEM (CD) 180 MG CAP PO SCH ×2 (08:52→20:38)
[2018-12-10] MEDS ORDERED: FUROSEMIDE 20 MG INJ IV SCH (09:00)
[2018-12-10] MEDS: AZITHROMYCIN 250 MG in SOD CHLORIDE 0.9% 250 ML IVPB SCH (09:05)
[2018-12-10] MEDS: ALBUTEROL/IPRATROPIUM (NEB) 3 ML AMP HHN SCH ×4 (09:30→20:46)
[2018-12-10] MEDS: ENOXAPARIN 80 MG/0.8 ML SYG SC SCH (09:39)
--- NOTE | 2018-12-10 11:38 | CONS ---
Consult Date/Type/Reason Admit Date/Time Dec 08, 2018 at 02:04 Initial Consult Date 12/08/18 Type of Consult Pulmonary Requesting Provider: FELIX BHAGAT MD Date/Time of Note DATE: 12/10/18 TIME: 11:37 Subjective Patient appears more comfortable this morning no respiratory distress. Still remains on BiPAP. Objective Vital Signs Date Temp Pulse Resp B/P (MAP) Pulse Ox O2 O2 Flow FiO2 Time Delivery Rate 12/10/18 97.8 92 20 137/92 99 11:27 (107) 12/10/18 35 09:30 12/09/18 Mask 15:35 12/08/18 4.0 17:35 Intake and Output 12/09/18 12/09/18 12/10/18 1515:00 23:00 07:00 IntakeIntake Total 100 ml 300 ml 350 ml BalanceBalance 100 ml 300 ml 350 ml Exam GENERAL: Elderly appearing gentleman comfortable at rest no acute distress on bilevel ventilation VITAL SIGNS: per chart NECK: Supple. No JVD or lymphadenopathy. CARDIAC EXAM: S1, S2. No added sounds or murmurs. CHEST: Diminished air entry left lung ABDOMEN: Soft, nontender. No guarding or rebound. EXTREMITIES: No cyanosis, clubbing or edema. NEUROLOGIC: Generalized weakness. No focal deficits. Vent Setting Fraction of Inspired Oxygen pe: 35 Results/Medications Result Diagram: 12/10/18 0512 12/10/18 0511 Results 24 hrs Laboratory Tests Test 12/10/18 05:11 12/10/18 05:12 Sodium Level 140 Potassium Level 4.0 Chloride Level 103 Carbon Dioxide Level 24 Anion Gap 13 Blood Urea Nitrogen 40 #H Creatinine 1.27 H Est Glomerular Filtrat Rate mL/min Glucose Level 122 Calcium Level 9.2 White Blood Count 13.1 H Red Blood Count 3.50 L Hemoglobin 10.3 L Hematocrit 33.1 L Mean Corpuscular Volume 94.6 Mean Corpuscular Hemoglobin 29.4 Mean Corpuscular Hemoglobin Concent 31.1 L Red Cell Distribution Width 15.8 H Platelet Count 199 Mean Platelet Volume 9.8 Immature Granulocytes % 0.500 H Neutrophils % 91.9 H Lymphocytes % 3.6 L Monocytes % 3.9 Eosinophils % 0.1 Basophils % 0.0 Nucleated Red Blood Cells % 0.0 Immature Granulocytes # 0.070 H Neutrophils # 12.0 H Lymphocytes # 0.5 L Monocytes # 0.5 Eosinophils # 0.0 Basophils # 0.0 Nucleated Red Blood Cells # 0.0 Phosphorus Level 3.2 Magnesium Level 2.5 Medications Current Medications Diltiazem HCl 125 ml @ 10 mls/hr [id number] IV Last administered on 12/08/18 12:51; Admin Dose 10 MLS/HR; Start 12/07/18 at 23:00; Status Hold Methylprednisolone Sodium Succinate (Solu-Medrol) 40 mg Q6 IV Last administered on 12/10/18 05:45; Admin Dose 40 MG; Start 12/08/18 at 08:00 Ondansetron HCl (Zofran Inj) 4 mg Q4H PRN IV NAUSEA AND/OR VOMITING; Start 12/08/18 at 08:00 Ceftriaxone Sodium 50 ml @ 100 mls/hr Q24H IVPB Last administered on 12/10/18 08:45; Admin Dose 100 MLS/HR; Start 12/08/18 at 08:00 Albuterol/ Ipratropium (Duoneb) 3 ml Q4HWA RESP THERAPY HHN Last administered on 12/10/18 09:30; Admin Dose 3 ML; Start 12/08/18 at 09:00 Azithromycin 250 mg/Sodium Chloride 250 ml @ 250 mls/hr Q24H IVPB Last administered on 12/10/18 09:05; Admin Dose 250 MLS/HR; Start 12/08/18 at 08:30 Pantoprazole (Protonix Tab) 40 mg DAILY@06 PO Last administered on 12/10/18 05:44; Admin Dose 40 MG; Start 12/09/18 at 06:00 Enoxaparin Sodium (Lovenox) 65 mg DAILY SC Last administered on 12/10/18 09:39; Admin Dose 65 MG; Start 12/09/18 at 09:00 Diltiazem HCl (Cardizem Iv) 5 mg Q4 PRN IV >105 Hold SBP<100; Start 12/08/18 at 14:00 Ipratropium [place] (Atrovent Nasal) 2 spray BID NASAL Last administered on 12/10/18 08:51; Admin Dose 2 SPRAY; Start 12/08/18 at 16:00 Morphine Sulfate (morphine) 2 mg Q2H PRN IV SHORTNESS OF BREATH Last administered on 12/09/18at 21:26; Admin Dose 2 MG; Start 12/08/18 at 16:30 Lorazepam (Ativan) 0.25 mg Q4 PRN IV SEDATION; Start 12/08/18 at 16:30 Diltiazem HCl (Cardizem Cd) 180 mg BID PO Last administered on 12/10/18at 08:52; Admin Dose 180 MG; Start 12/09/18 at 21:00 Furosemide (Lasix) 20 mg DAILY IV Last administered on 12/10/18at 08:49; Admin Dose 20 MG; Start 12/10/18 at 09:00 Assessment/Plan Hospital Course (Demo Recall) IMP: 1. 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 Likely representing an acute exacerbation. 2. Afib with RVR--likely driven by #1 3. CKD 4. Advanced Prostate Cancer 5. DNR/DNI RECS: 1. Bronchodilators ATC 2. BiPAP, trial of high flow O2 3. Abx 4. Solumedrol IV 5. Rate control as per Cards 6. DVT prophylaxis with Agree with hospice eval Consider transfer to [facility] SHERI GILL MD, [facility] Dec 10, 2018 11:38
--- NOTE | 2018-12-10 11:47 | PN ---
Date/Time of Note Date/Time of Note DATE: 12/10/18 TIME: 11:46 Assessment/Plan VTE Prophylaxis Risk score (from [facility] [place])>0 risk: 9 SCD applied (from [facility] [place]): No SCD contraindicated: low risk/ambulating Pharmacological prophylaxis: NA/contraindicated Pharm contraindication: low risk/ambulating Lines/Catheters IV Catheter Type (from [facility]): Saline Lock Urinary Cath still in place: No Assessment/Plan Assessment/Plan 1. 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 Likely representing an acute exacerbation. 2. Afib with RVR--likely driven by #1 now rate controlled 3. CKD 4. 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 6. Normocytic normochromic anemia 7 Hx of urinary retention likely secondary prostate cancer 8 Hx of pneumonia right lung recently 9 CHF, BNP 3660 10. 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 11. Hypertension. 12. Hx of bilateral popliteal bypass. Recs -cw with Rocephin/azithromycin -cw with Solu-Medrol 40 IV every 6 -cw with diltiazem 120 twice daily -lovenox 60 A. fib -cw morphine/ativan - GI/dvt prophylaxis - cw BIPAP - POOR Prognosis Will talk to the family again today in the afternoon Result Diagram: 12/10/18 0512 12/10/18 0511 Results 24hrs Laboratory Tests Test 12/10/18 05:11 12/10/18 05:12 Sodium Level 140 Potassium Level 4.0 Chloride Level 103 Carbon Dioxide Level 24 Anion Gap 13 Blood Urea Nitrogen 40 #H Creatinine 1.27 H Est Glomerular Filtrat Rate mL/min Glucose Level 122 Calcium Level 9.2 White Blood Count 13.1 H Red Blood Count 3.50 L Hemoglobin 10.3 L Hematocrit 33.1 L Mean Corpuscular Volume 94.6 Mean Corpuscular Hemoglobin 29.4 Mean Corpuscular Hemoglobin Concent 31.1 L Red Cell Distribution Width 15.8 H Platelet Count 199 Mean Platelet Volume 9.8 Immature Granulocytes % 0.500 H Neutrophils % 91.9 H Lymphocytes % 3.6 L Monocytes % 3.9 Eosinophils % 0.1 Basophils % 0.0 Nucleated Red Blood Cells % 0.0 Immature Granulocytes # 0.070 H Neutrophils # 12.0 H Lymphocytes # 0.5 L Monocytes # 0.5 Eosinophils # 0.0 Basophils # 0.0 Nucleated Red Blood Cells # 0.0 Phosphorus Level 3.2 Magnesium Level 2.5 Subjective 24 Hr Interval Summary Free Text/Dictation Patient gets short of breath off of BiPAP Exam/Review of Systems Exam Vitals Vital Signs Date Temp Pulse Resp B/P (MAP) Pulse Ox O2 O2 Flow FiO2 Time Delivery Rate 12/10/18 80 99 35 11:38 12/10/18 97.8 20 137/92 11:27 (107) 12/09/18 Mask 15:35 12/08/18 4.0 17:35 Intake and Output 12/09/18 12/09/18 12/10/18 1515:00 23:00 07:00 IntakeIntake Total 100 ml 300 ml 350 ml BalanceBalance 100 ml 300 ml 350 ml Exam GENERAL: The patient is on BiPAP in respiratory distress. NECK: JVP is elevated CHEST: Decreased air movement throughout. HEART: Irregularly irregular, I/ systolic murmur. ABDOMEN: Positive bowel sounds, soft. EXTREMITIES: No significant pitting edema, 1+ pulses bilateral posterior tibial. Results Results 24hrs Laboratory Tests Test 12/10/18 05:11 12/10/18 05:12 Sodium Level 140 Potassium Level 4.0 Chloride Level 103 Carbon Dioxide Level 24 Anion Gap 13 Blood Urea Nitrogen 40 #H Creatinine 1.27 H Est Glomerular Filtrat Rate mL/min Glucose Level 122 Calcium Level 9.2 White Blood Count 13.1 H Red Blood Count 3.50 L Hemoglobin 10.3 L Hematocrit 33.1 L Mean Corpuscular Volume 94.6 Mean Corpuscular Hemoglobin 29.4 Mean Corpuscular Hemoglobin Concent 31.1 L Red Cell Distribution Width 15.8 H Platelet Count 199 Mean Platelet Volume 9.8 Immature Granulocytes % 0.500 H Neutrophils % 91.9 H Lymphocytes % 3.6 L Monocytes % 3.9 Eosinophils % 0.1 Basophils % 0.0 Nucleated Red Blood Cells % 0.0 Immature Granulocytes # 0.070 H Neutrophils # 12.0 H Lymphocytes # 0.5 L Monocytes # 0.5 Eosinophils # 0.0 Basophils # 0.0 Nucleated Red Blood Cells # 0.0 Phosphorus Level 3.2 Magnesium Level 2.5 Medications Medication Current Medications Diltiazem HCl 125 ml @ 10 mls/hr [id number] IV Last administered on 12/08/18 12:51; Admin Dose 10 MLS/HR; Start 12/07/18 at 23:00; Status Hold Methylprednisolone Sodium Succinate (Solu-Medrol) 40 mg Q6 IV Last administered on 12/10/18 05:45; Admin Dose 40 MG; Start 12/08/18 at 08:00 Ondansetron HCl (Zofran Inj) 4 mg Q4H PRN IV NAUSEA AND/OR VOMITING; Start 12/08/18 at 08:00 Ceftriaxone Sodium 50 ml @ 100 mls/hr Q24H IVPB Last administered on 12/10/18 08:45; Admin Dose 100 MLS/HR; Start 12/08/18 at 08:00 Albuterol/ Ipratropium (Duoneb) 3 ml Q4HWA RESP THERAPY HHN Last administered on 12/10/18 09:30; Admin Dose 3 ML; Start 12/08/18 at 09:00 Azithromycin 250 mg/Sodium Chloride 250 ml @ 250 mls/hr Q24H IVPB Last administered on 12/10/18 09:05; Admin Dose 250 MLS/HR; Start 12/08/18 at 08:30 Pantoprazole (Protonix Tab) 40 mg DAILY@06 PO Last administered on 12/10/18 05:44; Admin Dose 40 MG; Start 12/09/18 at 06:00 Enoxaparin Sodium (Lovenox) 65 mg DAILY SC Last administered on 12/10/18 09:39; Admin Dose 65 MG; Start 12/09/18 at 09:00 Diltiazem HCl (Cardizem Iv) 5 mg Q4 PRN IV >105 Hold SBP<100; Start 12/08/18 at 14:00 Ipratropium [place] (Atrovent Nasal) 2 spray BID NASAL Last administered on 12/10/18 08:51; Admin Dose 2 SPRAY; Start 12/08/18 at 16:00 Morphine Sulfate (morphine) 2 mg Q2H PRN IV SHORTNESS OF BREATH Last ad ministered on 12/09/18 21:26; Admin Dose 2 MG; Start 12/08/18 at 16:30 Lorazepam (Ativan) 0.25 mg Q4 PRN IV SEDATION; Start 12/08/18 at 16:30 Diltiazem HCl (Cardizem Cd) 180 mg BID PO Last administered on 12/10/18at 08:52; Admin Dose 180 MG; Start 12/09/18 at 21:00 Furosemide (Lasix) 20 mg DAILY IV Last administered on 12/10/18at 08:49; Admin Dose 20 MG; Start 12/10/18 at 09:00 FELIX BHAGAT MD Dec 10, 2018 11:47
--- NOTE | 2018-12-10 14:04 | CONS ---
Consult Date/Type/Reason Admit Date/Time Dec 08, 2018 at 02:04 Initial Consult Date 12/08/18 Requesting Provider: FELIX BHAGAT MD Date/Time of Note DATE: 12/10/18 TIME: 14:01 Subjective NO acute events - BiPAP now - pt in a. fib - rate controlled under 90s now. ROS: No fever, no chills, no nausea, no vomiting, no diarrhea/constipation No recent weight changes No chest pain, no PND, no orthopnea + SOB, PiPAP now No dizziness, blurred vision No thirst, no heat or cold intolerance Objective Vitals Vital Signs Date Temp Pulse Resp B/P (MAP) Pulse Ox O2 O2 Flow FiO2 Time Delivery Rate 12/10/18 84 13:12 12/10/18 99 35 11:38 12/10/18 97.8 20 137/92 11:27 (107) 12/09/18 Mask 15:35 12/08/18 4.0 17:35 Intake and Output 12/09/18 12/09/18 12/10/18 1515:00 23:00 07:00 IntakeIntake Total 100 ml 300 ml 350 ml BalanceBalance 100 ml 300 ml 350 ml Exam General: WN/WD/NAD, AOx 1-2 [place] HEENT: Unicetric/atraumatic/EOMI (follows commands) NECK: JVD elevated, no thyromegaly- BiPAP Lymph: no lymphadenopathy HEART: ir irregular with no S3, II/ systolic murmur at apex LUNGS: Coarse sounds ABD: soft, NT, ND, +BS : Intact Neuro: non focal SKIN: chronic changes EXT: trace edema Results/Medications Result Diagram: 12/10/18 0512 12/10/18 0511 Results 24 hrs Laboratory Tests Test 12/10/18 05:11 12/10/18 05:12 Sodium Level 140 Potassium Level 4.0 Chloride Level 103 Carbon Dioxide Level 24 Anion Gap 13 Blood Urea Nitrogen 40 #H Creatinine 1.27 H Est Glomerular Filtrat Rate mL/min Glucose Level 122 Calcium Level 9.2 White Blood Count 13.1 H Red Blood Count 3.50 L Hemoglobin 10.3 L Hematocrit 33.1 L Mean Corpuscular Volume 94.6 Mean Corpuscular Hemoglobin 29.4 Mean Corpuscular Hemoglobin Concent 31.1 L Red Cell Distribution Width 15.8 H Platelet Count 199 Mean Platelet Volume 9.8 Immature Granulocytes % 0.500 H Neutrophils % 91.9 H Lymphocytes % 3.6 L Monocytes % 3.9 Eosinophils % 0.1 Basophils % 0.0 Nucleated Red Blood Cells % 0.0 Immature Granulocytes # 0.070 H Neutrophils # 12.0 H Lymphocytes # 0.5 L Monocytes # 0.5 Eosinophils # 0.0 Basophils # 0.0 Nucleated Red Blood Cells # 0.0 Phosphorus Level 3.2 Magnesium Level 2.5 Home Meds Active Scripts Albuterol Sulfate* (Proair HFA*) 8.5 Gm Hfa.aer.ad, 2 PUFF INH Q4, #1 INHALER Prov:DIMATEOSOFIE DO 12/07/18 Prednisone* (Prednisone*) 20 Mg Tab, 60 MG PO DAILY for 5 Days, TAB Prov:CELINAJEFERSONMATEOSOFIE DO 12/07/18 Azithromycin* (Zithromax*) 250 Mg Tablet, 250 MG PO .DEJA DIRECTED, #6 TAB TAKE 500 MG (2 TABS) THE FIRST DAY THEN 250 MG (1 TAB) DAYS 2-5 Prov:CELINAJEFERSONMATEOSOFIE DO 12/07/18 Reported Medications Cholecalciferol (D3-5) 5,000 Unit Capsule, 1 CAP ORAL DAILY 11/17/18 Suvorexant (Belsomra) 20 Mg Tablet, 20 MG ORAL HS PRN for ANXIETY 11/17/18 Bicalutamide* (Casodex*) 50 Mg Tablet, 50 MG ORAL DAILY 08/19/18 Albuterol Sulfate* (Albuterol Sulfate* Neb) 0.083%-3 Ml Neb, 1.25 MG NEB Q4H, #30 VIAL 08/19/18 Umeclidinium [place] (Incruse Ellipta) 62.5 Mcg Blst.w.dev, 62.5 MCG IH DAILY 08/19/18 Medications Current Medications Diltiazem HCl 125 ml @ 10 mls/hr [id number] IV Last administered on 12/08/18at 12:51; Admin Dose 10 MLS/HR; Start 12/07/18 at 23:00; Status Hold Methylprednisolone Sodium Succinate (Solu-Medrol) 40 mg Q6 IV Last administered on 12/10/18at 12:54; Admin Dose 40 MG; Start 12/08/18 at 08:00 Ondansetron HCl (Zofran Inj) 4 mg Q4H PRN IV NAUSEA AND/OR VOMITING; Start 12/08/18 at 08:00 Ceftriaxone Sodium 50 ml @ 100 mls/hr Q24H IVPB Last administered on 12/10/18 08:45; Admin Dose 100 MLS/HR; Start 12/08/18 at 08:00 Albuterol/ Ipratropium (Duoneb) 3 ml Q4HWA RESP THERAPY HHN Last administered on 12/10/18 13:37; Admin Dose 3 ML; Start 12/08/18 at 09:00 Azithromycin 250 mg/Sodium Chloride 250 ml @ 250 mls/hr Q24H IVPB Last administered on 12/10/18 09:05; Admin Dose 250 MLS/HR; Start 12/08/18 at 08:30 Pantoprazole (Protonix Tab) 40 mg DAILY@06 PO Last administered on 12/10/18 05:44; Admin Dose 40 MG; Start 12/09/18 at 06:00 Enoxaparin Sodium (Lovenox) 65 mg DAILY SC Last administered on 12/10/18 09:39; Admin Dose 65 MG; Start 12/09/18 at 09:00 Diltiazem HCl (Cardizem Iv) 5 mg Q4 PRN IV >105 Hold SBP<100; Start 12/08/18 at 14:00 Ipratropium [place] (Atrovent Nasal) 2 spray BID NASAL Last administered on 12/10/18 08:51; Admin Dose 2 SPRAY; Start 12/08/18 at 16:00 Morphine Sulfate (morphine) 2 mg Q2H PRN IV SHORTNESS OF BREATH Last administered on 12/09/18 21:26; Admin Dose 2 MG; Start 12/08/18 at 16:30 Lorazepam (Ativan) 0.25 mg Q4 PRN IV SEDATION; Start 12/08/18 at 16:30 Diltiazem HCl (Cardizem Cd) 180 mg BID PO Last administered on 12/10/18 08:52; Admin Dose 180 MG; Start 12/09/18 at 21:00 Assessment/Plan Hospital Course (Demo Recall) 1. Atrial fibrillation-very mild rvr - now better ratte - con't to folow 2. Increased BNP, assess for congestive heart failure - stable fluid satus - keep euvolemic. 3. History of hypertension, currently under reasonable control - BP in goodr owen now. 4. Respiratory failure, on BiPAP - pulmonary team follows. 5. Chronic obstructive pulmonary disease exacerbation - con't Rx now. 6. Acute on chronic renal failure - stable urine output - avoid nephrotoxic meds. 7. Lower extremity peripheral bypass. 8. Anemia - no active bleeding - chronic disease. 9. renal failure-ioverCATHY Anton MD Dec 10, 2018 14:04
[2018-12-10] MEDS: morphine 2 MG INJ IV PRN (20:52)
[2018-12-10] MEDS: LORAZEPAM 2 MG INJ IV PRN (22:13)
[2018-12-11] VITALS (19 sets, daily range): BP systolic 135–152; BP diastolic 86–97; PULSE 62–90; RESP 19–24
[2018-12-11] MEDS: METHYLPREDNISOLONE 40 MG INJ IV SCH ×4 (00:15→21:17)
[2018-12-11] MEDS: morphine 2 MG INJ IV PRN ×2 (00:16→16:25)
[2018-12-11] MEDS: PANTOPRAZOLE (EC) 40 MG TAB PO SCH (05:53)
[2018-12-11] MEDS: CEFTRIAXONE 1 GM/50 ML (PMX) 50 ML IVPB SCH (08:43)
[2018-12-11] MEDS: DILTIAZEM (CD) 180 MG CAP PO SCH ×2 (09:00→20:33)
[2018-12-11] MEDS: IPRATROPIUM 0.03% 30 ML NASAL SPRAY NASAL SCH ×2 (09:01→20:34)
[2018-12-11] MEDS: ENOXAPARIN 80 MG/0.8 ML SYG SC SCH (09:02)
[2018-12-11] MEDS: AZITHROMYCIN 250 MG in SOD CHLORIDE 0.9% 250 ML IVPB SCH (09:38)
[2018-12-11] MEDS: ALBUTEROL/IPRATROPIUM (NEB) 3 ML AMP HHN SCH ×4 (10:10→21:00)
--- NOTE | 2018-12-11 10:40 | PN ---
Date/Time of Note Date/Time of Note DATE: 12/11/18 TIME: 10:38 Assessment/Plan VTE Prophylaxis Risk score (from [facility])>0 risk: 8 [place] [facility] [place] SCD contraindicated: low risk/ambulating Pharmacological prophylaxis: NA/contraindicated Pharm contraindication: low risk/ambulating Lines/Catheters [facility] Saline Lock Urinary Cath still in place: No Assessment/Plan Assessment/Plan 1. 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 Likely representing an acute exacerbation. 2. Afib with RVR--likely driven by #1 now rate controlled 3. CKD with SESAR 4. 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 6. Normocytic normochromic anemia 7 Hx of urinary retention likely secondary prostate cancer 8 Hx of pneumonia right lung recently 9 CHF, BNP 3660 10. 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 11. Hypertension. 12. Hx of bilateral popliteal bypass. Recs -cw with Rocephin/azithromycin -dec with Solu-Medrol 40 IV every Q8 -cw with diltiazem 180 twice daily -lovenox 60 A. fib -cw morphine/ativan - GI/dvt prophylaxis - cw BIPAP - POOR Prognosis Sister Britt agreeable to hospice likely to the SNIF spoke to social media content manager who will [facility] hospice Result Diagram: 12/10/18 0512 12/11/18 0511 Results 24hrs Laboratory Tests Test 12/11/18 05:11 Sodium Level 141 Potassium Level 3.8 Chloride Level 102 Carbon Dioxide Level 29 Anion Gap 10 Blood Urea Nitrogen 57 H Creatinine 1.35 H Est Glomerular Filtrat Rate mL/min Glucose Level 153 Calcium Level 9.0 Subjective 24 Hr Interval Summary Free Text/Dictation Patient back on BiPAP Exam/Review of Systems Exam Vitals Vital Signs Date Temp Pulse Resp B/P (MAP) Pulse Ox O2 O2 Flow FiO2 Time Delivery Rate 12/11/18 80 98 35 10:30 12/11/18 96.9 24 152/90 Mask 08:01 (110) 12/08/18 4.0 17:35 Intake and Output 12/10/18 12/10/18 12/11/18 1414:59 22:59 06:59 IntakeIntake Total 300 ml 300 ml 350 ml OutputOutput Total 200 ml BalanceBalance 300 ml 100 ml 350 ml Exam GENERAL: The patient is on BiPAP in respiratory distress. NECK: JVP is elevated CHEST: Decreased air movement throughout. HEART: Irregularly irregular, I/ systolic murmur. ABDOMEN: Positive bowel sounds, soft. EXTREMITIES: No significant pitting edema, 1+ pulses bilateral posterior tibial. Results Results 24hrs Laboratory Tests Test 12/11/18 05:11 Sodium Level 141 Potassium Level 3.8 Chloride Level 102 Carbon Dioxide Level 29 Anion Gap 10 Blood Urea Nitrogen 57 H Creatinine 1.35 H Est Glomerular Filtrat Rate mL/min Glucose Level 153 Calcium Level 9.0 Medications Medication Current Medications Diltiazem HCl 125 ml @ 10 mls/hr [id number] IV Last administered on 12/08/18at 12:51; Admin Dose 10 MLS/HR; Start 12/07/18 at 23:00; Status Hold Ondansetron HCl (Zofran Inj) 4 mg Q4H PRN IV NAUSEA AND/OR VOMITING; Start 12/08/18 at 08:00 Ceftriaxone Sodium 50 ml @ 100 mls/hr Q24H IVPB Last administered on 12/11/18at 08:43; Admin Dose 100 MLS/HR; Start 12/08/18 at 08:00 Albuterol/ Ipratropium (Duoneb) 3 ml Q4HWA RESP THERAPY HHN Last administered on 12/11/18at 10:10; Admin Dose 3 ML; Start 12/08/18 at 09:00 Azithromycin 250 mg/Sodium Chloride 250 ml @ 250 mls/hr Q24H IVPB Last administered on 12/11/18at 09:38; Admin Dose 250 MLS/HR; Start 12/08/18 at 08:30 Pantoprazole (Protonix Tab) 40 mg DAILY@06 PO Last administered on 12/11/18at 05:53; Admin Dose 40 MG; Start 12/09/18 at 06:00 Enoxaparin Sodium (Lovenox) 65 mg DAILY SC Last administered on 12/11/18at 09:02; Admin Dose 65 MG; Start 12/09/18 at 09:00 Diltiazem HCl (Cardizem Iv) 5 mg Q4 PRN IV >105 Hold SBP<100; Start 12/08/18 at 14:00 Ipratropium [place] (Atrovent Nasal) 2 spray BID NASAL Last administered on 12/11/18 09:01; Admin Dose 2 SPRAY; Start 12/08/18 at 16:00 Morphine Sulfate (morphine) 2 mg Q2H PRN IV SHORTNESS OF BREATH Last administered on 12/11/18 00:16; Admin Dose 2 MG; Start 12/08/18 at 16:30 Lorazepam (Ativan) 0.25 mg Q4 PRN IV SEDATION Last administered on 12/10/18at 22:13; Admin Dose 0.25 MG; Start 12/08/18 at 16:30 Diltiazem HCl (Cardizem Cd) 180 mg BID PO Last administered on 12/11/18 09:00; Admin Dose 180 MG; Start 12/09/18 at 21:00 Methylprednisolone Sodium Succinate (Solu-Medrol) 40 mg Q8 IV ; Start 12/11/18 at 14:00; Status UNFELIX OLIVARES MD Dec 11, 2018 10:40
--- NOTE | 2018-12-11 12:02 | CONS ---
Consult Date/Type/Reason Admit Date/Time Dec 08, 2018 at 02:04 Initial Consult Date 12/08/18 Type of Consult Pulmonary Requesting Provider: FELIX BHAGAT MD Date/Time of Note DATE: 12/11/18 TIME: 12:01 Subjective Remains BiPAP dependent. failed high flow O2. Objective Vital Signs Date Temp Pulse Resp B/P (MAP) Pulse Ox O2 O2 Flow FiO2 Time Delivery Rate 12/11/18 97.8 77 24 144/95 100 Mask 11:41 (111) 12/11/18 35 10:30 12/08/18 4.0 17:35 Intake and Output 12/10/18 12/10/18 12/11/18 1515:00 23:00 07:00 IntakeIntake Total 300 ml 300 ml 350 ml OutputOutput Total 200 ml BalanceBalance 300 ml 100 ml 350 ml Exam GENERAL: Elderly appearing gentleman comfortable at rest no acute distress on bilevel ventilation VITAL SIGNS: per chart NECK: Supple. No JVD or lymphadenopathy. CARDIAC EXAM: S1, S2. No added sounds or murmurs. CHEST: Diminished air entry left lung ABDOMEN: Soft, nontender. No guarding or rebound. EXTREMITIES: No cyanosis, clubbing or edema. NEUROLOGIC: Generalized weakness. No focal deficits. Vent Setting Fraction of Inspired Oxygen pe: 35 Results/Medications Result Diagram: 12/10/18 0512 12/11/18 0511 Results 24 hrs Laboratory Tests Test 12/11/18 05:11 Sodium Level 141 Potassium Level 3.8 Chloride Level 102 Carbon Dioxide Level 29 Anion Gap 10 Blood Urea Nitrogen 57 H Creatinine 1.35 H Est Glomerular Filtrat Rate mL/min Glucose Level 153 Calcium Level 9.0 Medications Current Medications Diltiazem HCl 125 ml @ 10 mls/hr [id number] IV Last administered on 12/08/18at 12:51; Admin Dose 10 MLS/HR; Start 12/07/18 at 23:00; Status Hold Ondansetron HCl (Zofran Inj) 4 mg Q4H PRN IV NAUSEA AND/OR VOMITING; Start 12/08/18 at 08:00 Ceftriaxone Sodium 50 ml @ 100 mls/hr Q24H IVPB Last administered on 12/11/18at 08:43; Admin Dose 100 MLS/HR; Start 12/08/18 at 08:00 Albuterol/ Ipratropium (Duoneb) 3 ml Q4HWA RESP THERAPY HHN Last administered on 12/11/18 10:10; Admin Dose 3 ML; Start 12/08/18 at 09:00 Azithromycin 250 mg/Sodium Chloride 250 ml @ 250 mls/hr Q24H IVPB Last administered on 12/11/18 09:38; Admin Dose 250 MLS/HR; Start 12/08/18 at 08:30 Pantoprazole (Protonix Tab) 40 mg DAILY@06 PO Last administered on 12/11/18 05:53; Admin Dose 40 MG; Start 12/09/18 at 06:00 Enoxaparin Sodium (Lovenox) 65 mg DAILY SC Last administered on 12/11/18 09:02; Admin Dose 65 MG; Start 12/09/18 at 09:00 Diltiazem HCl (Cardizem Iv) 5 mg Q4 PRN IV >105 Hold SBP<100; Start 12/08/18 at 14:00 Ipratropium [place] (Atrovent Nasal) 2 spray BID NASAL Last administered on 12/11/18 09:01; Admin Dose 2 SPRAY; Start 12/08/18 at 16:00 Morphine Sulfate (morphine) 2 mg Q2H PRN IV SHORTNESS OF BREATH Last administered on 12/11/18 00:16; Admin Dose 2 MG; Start 12/08/18 at 16:30 Lorazepam (Ativan) 0.25 mg Q4 PRN IV SEDATION Last administered on 12/10/18 22:13; Admin Dose 0.25 MG; Start 12/08/18 at 16:30 Diltiazem HCl (Cardizem Cd) 180 mg BID PO Last administered on 12/11/18 09:00; Admin Dose 180 MG; Start 12/09/18 at 21:00 Methylprednisolone Sodium Succinate (Solu-Medrol) 40 mg Q8 IV ; Start 12/11/18 at 14:00 Assessment/Plan Hospital Course (Demo Recall) IMP: 1. 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 Likely representing an acute exacerbation. 2. Afib with RVR--likely driven by #1 3. CKD 4. Advanced Prostate Cancer 5. DNR/DNI RECS: 1. Bronchodilators ATC 2. BiPAP, trial of high flow O2 3. Abx 4. Solumedrol IV 5. Rate control as per Cards 6. DVT prophylaxis with Transition to hospice SHERI GILL MD, [facility] Dec 11, 2018 12:02
--- NOTE | 2018-12-11 12:39 | CONS ---
Assessment/Plan Assessment/Plan Hospital Course (Demo Recall) IMPRESSION: 1. Atrial fibrillation-very mild rvr 2. Increased BNP, assess for congestive heart failure. 3. History of hypertension, currently under reasonable control. 4. Respiratory failure, on BiPAP. 5. Chronic obstructive pulmonary disease exacerbation. 6. Acute on chronic renal failure. 7. Lower extremity peripheral bypass. 8. Anemia. 9. renal failure-overall improved Recc; -Tele -Continue diltiazem with reasonably controlled HR -add hydralazine to improve BP control -Contineu BIPAP resp support -Contineu lovenox -continue steroids and bronchodilators -Continue abx's and f/u cx data -Follow volume status clsoely Consultation Date/Type/Reason Admit Date/Time Dec 08, 2018 at 02:04 Initial Consult Date 12/08/18 Type of Consult Cardiology Reason for Consultation AF Requesting Provider: FELIX BHAGAT MD Date/Time of Note DATE: 12/11/18 TIME: 12:33 Exam/Review of Systems Vital Signs Vitals Vital Signs Date Temp Pulse Resp B/P (MAP) Pulse Ox O2 O2 Flow FiO2 Time Delivery Rate 12/11/18 97.8 77 24 144/95 100 Mask 11:41 (111) 12/11/18 35 10:30 12/08/18 4.0 17:35 Intake and Output 12/10/18 12/10/18 12/11/18 1515:00 23:00 07:00 IntakeIntake Total 300 ml 300 ml 350 ml OutputOutput Total 200 ml BalanceBalance 300 ml 100 ml 350 ml Exam Exam Review of Systems: CONSTITUTIONAL: No fevers, chills. PULMONARY: No sob CARDIOVASCULAR: No chest pain/palpitations GASTROINTESTINAL: No nausea/vomiting. GENITOURINARY: No hematuria/dysuria. MUSCULOSKELETAL: No myagias/arthalgias. PSYCHIATRIC: The patient denies depression. NEUROLOGIC: No weakness Constitutional: alert Psych: no complaints Head: normocephalic ENMT: mucosa pink and moist Neck: supple, jvd (9 cm water) Respiratory: diminished breath sounds (at bases/B) Cardiovascular: irregular rhythm Gastrointestinal: soft, non-tender Musculoskeletal: muscle tone (normal) Extremities: edema (none) Neurological: other (No focal deficits) Labs Result Diagram: 12/10/1851112/11/18 0511 Results 24hrs Laboratory Tests Test 12/11/18 05:11 Sodium Level 141 Potassium Level 3.8 Chloride Level 102 Carbon Dioxide Level 29 Anion Gap 10 Blood Urea Nitrogen 57 H Creatinine 1.35 H Est Glomerular Filtrat Rate mL/min Glucose Level 153 Calcium Level 9.0 Medications Medications Current Medications Diltiazem HCl 125 ml @ 10 mls/hr [id number] IV Last administered on 12/08/18 12:51; Admin Dose 10 MLS/HR; Start 12/07/18 at 23:00; Status Hold Ondansetron HCl (Zofran Inj) 4 mg Q4H PRN IV NAUSEA AND/OR VOMITING; Start 12/08/18 at 08:00 Ceftriaxone Sodium 50 ml @ 100 mls/hr Q24H IVPB Last administered on 12/11/18 08:43; Admin Dose 100 MLS/HR; Start 12/08/18 at 08:00 Albuterol/ Ipratropium (Duoneb) 3 ml Q4HWA RESP THERAPY HHN Last administered on 12/11/18 10:10; Admin Dose 3 ML; Start 12/08/18 at 09:00 Azithromycin 250 mg/Sodium Chloride 250 ml @ 250 mls/hr Q24H IVPB Last administered on 12/11/18 09:38; Admin Dose 250 MLS/HR; Start 12/08/18 at 08:30 Pantoprazole (Protonix Tab) 40 mg DAILY@06 PO Last administered on 12/11/18 05:53; Admin Dose 40 MG; Start 12/09/18 at 06:00 Enoxaparin Sodium (Lovenox) 65 mg DAILY SC Last administered on 12/11/18 09:02; Admin Dose 65 MG; Start 12/09/18 at 09:00 Diltiazem HCl (Cardizem Iv) 5 mg Q4 PRN IV >105 Hold SBP<100; Start 12/08/18 at 14:00 Ipratropium [place] (Atrovent Nasal) 2 spray BID NASAL Last administered on 12/11/18 09:01; Admin Dose 2 SPRAY; Start 12/08/18 at 16:00 Morphine Sulfate (morphine) 2 mg Q2H PRN IV SHORTNESS OF BREATH Last administered on 12/11/18 00:16; Admin Dose 2 MG; Start 12/08/18 at 16:30 Lorazepam (Ativan) 0.25 mg Q4 PRN IV SEDATION Last administered on 12/10/18at 22:13; Admin Dose 0.25 MG; Start 12/08/18 at 16:30 Diltiazem HCl (Cardizem Cd) 180 mg BID PO Last administered on 12/11/18at 09:00; Admin Dose 180 MG; Start 12/09/18 at 21:00 Methylprednisolone Sodium Succinate (Solu-Medrol) 40 mg Q8 IV ; Start 12/11/18 at 14:00 WALTER HENDERSON Dec 11, 2018 12:39
[2018-12-11] MEDS: LORAZEPAM 2 MG INJ IV PRN (21:25)
[2018-12-12] VITALS (20 sets, daily range): BP systolic 114–135; BP diastolic 67–84; PULSE 56–83; RESP 19–24
[2018-12-12] MEDS: PANTOPRAZOLE (EC) 40 MG TAB PO SCH (06:20)
[2018-12-12] MEDS: METHYLPREDNISOLONE 40 MG INJ IV SCH (06:20)
[2018-12-12] MEDS: DILTIAZEM (CD) 180 MG CAP PO SCH (08:08)
[2018-12-12] MEDS: IPRATROPIUM 0.03% 30 ML NASAL SPRAY NASAL SCH (08:09)
[2018-12-12] MEDS: CEFTRIAXONE 1 GM/50 ML (PMX) 50 ML IVPB SCH (08:13)
[2018-12-12] MEDS: ENOXAPARIN 80 MG/0.8 ML SYG SC SCH (08:26)
[2018-12-12] MEDS: ALBUTEROL/IPRATROPIUM (NEB) 3 ML AMP HHN SCH (09:00)
[2018-12-12] MEDS: AZITHROMYCIN 250 MG in SOD CHLORIDE 0.9% 250 ML IVPB SCH (09:25)
--- NOTE | 2018-12-12 09:50 | PN ---
Date/Time of Note Date/Time of Note DATE: 12/12/18 TIME: 09:50 Assessment/Plan VTE Prophylaxis Risk score (from Ns)>0 risk: 7 [place]CD applied [place]from [facility] [place] SCD contraindicated: low risk/ambulating Pharmacological prophylaxis: NA/contraindicated Pharm contraindication: low risk/ambulating Lines/Catheters IV [facility] (from [facility] [place] Urinary Cath still in place: No Assessment/Plan Hospital Course 3. CKD with SESAR 4. 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 6. Normocytic normochromic anemia 7 Hx of urinary retention likely secondary prostate cancer 8 Hx of pneumonia right lung recently 9 CHF, BNP 3660 10. 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 11. Hypertension. 12. Hx of bilateral popliteal bypass. Recs -cw with Rocephin/azithromycin -cw with Solu-Medrol 40 IV every Q8 -cw with diltiazem 180 twice daily -lovenox 60 A. fib -cw morphine/ativan - GI/dvt prophylaxis - cw BIPAP - POOR Prognosis Sister Britt agreeable to hospice likely to the [facility] spoke to social media designer who will [facility] Likely [facility] hospice as patient is requiring BiPAP Result Diagram: 12/10/18 0512 12/11/18 0511 Subjective 24 Hr Interval Summary Free Text/Dictation he is still BiPAP dependent spoke to Sister Keely who is agreeing on keeping the patient comfortable at this point and wants to talk to hospice Exam/Review of Systems Exam Vitals Vital Signs Date Temp Pulse Resp B/P (MAP) Pulse Ox O2 O2 Flow FiO2 Time Delivery Rate 12/12/18 65 08:42 12/12/18 96.8 22 122/79 100 Mask 07:52 (93) 12/12/18 35 05:12 12/08/18 4.0 17:35 Intake and Output 12/11/18 12/11/18 12/12/18 1414:59 22:59 06:59 IntakeIntake Total 680 ml 300 ml OutputOutput Total 350 ml BalanceBalance 680 ml -50 ml Exam GENERAL: The patient is on BiPAP in respiratory distress. NECK: JVP is elevated CHEST: Decreased air movement throughout. HEART: Irregularly irregular, I/ systolic murmur. ABDOMEN: Positive bowel sounds, soft. EXTREMITIES: No significant pitting edema, 1+ pulses bilateral posterior tibia l. Medications Medication Current Medications Diltiazem HCl 125 ml @ 10 mls/hr [id number] IV Last administered on 12/08/18 12:51; Admin Dose 10 MLS/HR; Start 12/07/18 at 23:00; Status Hold Ondansetron HCl (Zofran Inj) 4 mg Q4H PRN IV NAUSEA AND/OR VOMITING; Start 12/08/18 at 08:00 Ceftriaxone Sodium 50 ml @ 100 mls/hr Q24H IVPB Last administered on 12/12/18 08:13; Admin Dose 100 MLS/HR; Start 12/08/18 at 08:00 Albuterol/ Ipratropium (Duoneb) 3 ml Q4HWA RESP THERAPY HHN Last administered on 12/11/18 21:00; Admin Dose 3 ML; Start 12/08/18 at 09:00 Azithromycin 250 mg/Sodium Chloride 250 ml @ 250 mls/hr Q24H IVPB Last administered on 12/12/18 09:25; Admin Dose 250 MLS/HR; Start 12/08/18 at 08:30 Pantoprazole (Protonix Tab) 40 mg DAILY@06 PO Last administered on 12/12/18 06:20; Admin Dose 40 MG; Start 12/09/18 at 06:00 Enoxaparin Sodium (Lovenox) 65 mg DAILY SC Last administered on 12/12/18 08:26; Admin Dose 65 MG; Start 12/09/18 at 09:00 Diltiazem HCl (Cardizem Iv) 5 mg Q4 PRN IV >105 Hold SBP<100; Start 12/08/18 at 14:00 Ipratropium [place] (Atrovent Nasal) 2 spray BID NASAL Last administered on 12/12/18 08:09; Admin Dose 2 SPRAY; Start 12/08/18 at 16:00 Morphine Sulfate (morphine) 2 mg Q2H PRN IV SHORTNESS OF BREATH Last administered on 12/11/18 16:25; Admin Dose 2 MG; Start 12/08/18 at 16:30 Lorazepam (Ativan) 0.25 mg Q4 PRN IV SEDATION Last administered on 12/11/18 21:25; Admin Dose 0.25 MG; Start 12/08/18 at 16:30 Diltiazem HCl (Cardizem Cd) 180 mg BID PO Last administered on 12/12/18 08:08; Admin Dose 180 MG; Start 12/09/18 at 21:00 Methylprednisolone Sodium Succinate (Solu-Medrol) 40 mg Q8 IV Last administered on 12/12/18 06:20; Admin Dose 40 MG; Start 12/11/18 at 14:00 Hydralazine HCl (Apresoline) 25 mg Q12 PO Last administered on 12/12/18 08:08; Admin Dose 25 MG; Start 12/11/18 at 21:00 FELIX BHAGAT MD Dec 12, 2018 09:50
--- NOTE | 2018-12-12 11:09 | CONS ---
Consult Date/Type/Reason Admit Date/Time Dec 08, 2018 at 02:04 Initial Consult Date 12/08/18 Type of Consult Pulmonary Requesting Provider: FELIX BHAGAT MD Date/Time of Note DATE: 12/12/18 TIME: 11:08 Subjective Patient still remains BiPAP dependent. Objective Vital Signs Date Temp Pulse Resp B/P (MAP) Pulse Ox O2 O2 Flow FiO2 Time Delivery Rate 12/12/18 70 20 99 40 09:00 12/12/18 96.8 122/79 Mask 07:52 (93) 12/08/18 4.0 17:35 Intake and Output 12/11/18 12/11/18 12/12/18 1414:59 22:59 06:59 IntakeIntake Total 680 ml 300 ml OutputOutput Total 350 ml BalanceBalance 680 ml -50 ml Exam GENERAL: Elderly appearing gentleman comfortable at rest no acute distress on bilevel ventilation VITAL SIGNS: per chart NECK: Supple. No JVD or lymphadenopathy. CARDIAC EXAM: S1, S2. No added sounds or murmurs. CHEST: Diminished air entry left lung ABDOMEN: Soft, nontender. No guarding or rebound. EXTREMITIES: No cyanosis, clubbing or edema. NEUROLOGIC: Generalized weakness. No focal deficits. Vent Setting Fraction of Inspired Oxygen pe: 40 Results/Medications Result Diagram: 12/10/18 0512 12/11/18 0511 Medications Current Medications Diltiazem HCl 125 ml @ 10 mls/hr [id number] IV Last administered on 12/08/18at 12:51; Admin Dose 10 MLS/HR; Start 12/07/18 at 23:00; Status Hold Ondansetron HCl (Zofran Inj) 4 mg Q4H PRN IV NAUSEA AND/OR VOMITING; Start 12/08/18 at 08:00 Ceftriaxone Sodium 50 ml @ 100 mls/hr Q24H IVPB Last administered on 12/12/18at 08:13; Admin Dose 100 MLS/HR; Start 12/08/18 at 08:00 Albuterol/ Ipratropium (Duoneb) 3 ml Q4HWA RESP THERAPY HHN Last administered on 12/11/18at 21:00; Admin Dose 3 ML; Start 12/08/18 at 09:00 Azithromycin 250 mg/Sodium Chloride 250 ml @ 250 mls/hr Q24H IVPB Last administered on 12/12/18 09:25; Admin Dose 250 MLS/HR; Start 12/08/18 at 08:30 Pantoprazole (Protonix Tab) 40 mg DAILY@06 PO Last administered on 12/12/18 06:20; Admin Dose 40 MG; Start 12/09/18 at 06:00 Enoxaparin Sodium (Lovenox) 65 mg DAILY SC Last administered on 12/12/18 08:26; Admin Dose 65 MG; Start 12/09/18 at 09:00 Diltiazem HCl (Cardizem Iv) 5 mg Q4 PRN IV >105 Hold SBP<100; Start 12/08/18 at 14:00 Ipratropium [place] (Atrovent Nasal) 2 spray BID NASAL Last administered on 12/12/18 08:09; Admin Dose 2 SPRAY; Start 12/08/18 at 16:00 Morphine Sulfate (morphine) 2 mg Q2H PRN IV SHORTNESS OF BREATH Last administered on 12/11/18 16:25; Admin Dose 2 MG; Start 12/08/18 at 16:30 Lorazepam (Ativan) 0.25 mg Q4 PRN IV SEDATION Last administered on 12/11/18 21:25; Admin Dose 0.25 MG; Start 12/08/18 at 16:30 Diltiazem HCl (Cardizem Cd) 180 mg BID PO Last administered on 12/12/18 08:08; Admin Dose 180 MG; Start 12/09/18 at 21:00 Methylprednisolone Sodium Succinate (Solu-Medrol) 40 mg Q8 IV Last administered on 12/12/18 06:20; Admin Dose 40 MG; Start 12/11/18 at 14:00 Hydralazine HCl (Apresoline) 25 mg Q12 PO Last administered on 12/12/18 08:08; Admin Dose 25 MG; Start 12/11/18 at 21:00 Assessment/Plan Hospital Course (Demo Recall) IMP: 1. 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 Likely representing an acute exacerbation. 2. Afib with RVR--likely driven by #1 3. CKD 4. Advanced Prostate Cancer 5. DNR/DNI RECS: 1. Bronchodilators ATC 2. BiPAP, trial of high flow O2 3. Abx 4. Solumedrol IV 5. Rate control as per Cards 6. DVT prophylaxis with Transition to hospice ? Will discuss with primary team [facility]ILL MD, [facility] Dec 12, 2018 11:09
[2018-12-12] MEDS ORDERED: LORAZEPAM 2 MG INJ IV PRN (11:30)
[2018-12-12] MEDS ORDERED: BISACODYL 10 MG SUPP PR PRN (11:30)
[2018-12-12] MEDS ORDERED: ALBUTEROL/IPRATROPIUM (NEB) 3 ML AMP HHN PRN (11:30)
[2018-12-12] MEDS ORDERED: ATROPINE 1% 5 ML OPH SL PRN (11:30)
[2018-12-12] MEDS ORDERED: SCOPOLAMINE 1.5 MG PATCH TRANSDERM SCH (11:30)
[2018-12-12] MEDS ORDERED: ONDANSETRON 4 MG INJ IV PRN (11:30)
[2018-12-12] MEDS: morphine (DRIP) 100 MG/100 ML 100 ML IV SCH (13:10)
--- NOTE | 2018-12-12 13:47 | CONS ---
Assessment/Plan Assessment/Plan Hospital Course (Demo Recall) IMPRESSION: 1. Atrial fibrillation-very mild rvr 2. Increased BNP, assess for congestive heart failure. 3. History of hypertension, currently under reasonable control. 4. Respiratory failure, on BiPAP. 5. Chronic obstructive pulmonary disease exacerbation. 6. Acute on chronic renal failure. 7. Lower extremity peripheral bypass. 8. Anemia. 9. renal failure-overall improved Recc; -Now [employer] -Will sign off Consultation Date/Type/Reason Admit Date/Time Dec 08, 2018 at 02:04 Initial Consult Date 12/08/18 Type of Consult Cardiology Reason for Consultation AF Requesting Provider: FELIX BHAGAT MD Date/Time of Note DATE: 12/12/18 TIME: 13:45 Exam/Review of Systems Vital Signs Vitals Vital Signs Date Temp Pulse Resp B/P (MAP) Pulse Ox O2 O2 Flow FiO2 Time Delivery Rate 12/12/18 69 97 40 13:00 12/12/18 97.6 24 114/67 Mask 11:40 (83) 12/08/18 4.0 17:35 Intake and Output 12/11/18 12/11/18 12/12/18 1515:00 23:00 07:00 IntakeIntake Total 680 ml 300 ml OutputOutput Total 350 ml BalanceBalance 680 ml -50 ml Exam Exam Review of Systems: CONSTITUTIONAL: No fevers, chills. PULMONARY: No sob CARDIOVASCULAR: No chest pain/palpitations GASTROINTESTINAL: No nausea/vomiting. GENITOURINARY: No hematuria/dysuria. MUSCULOSKELETAL: No myagias/arthalgias. PSYCHIATRIC: The patient denies depression. NEUROLOGIC: No weakness Constitutional: alert, oriented Psych: no complaints Head: normocephalic ENMT: mucosa pink and moist Neck: supple, jvd (9 cm water) Respiratory: diminished breath sounds Cardiovascular: regular rate and rhythm Gastrointestinal: soft, non-tender Musculoskeletal: muscle tone (normal) Extremities: edema (none) Neurological: other (No focal focal deficits) Labs Result Diagram: 12/10/18 0512/11/18 05 Medications Medications Current Medications Albuterol/ Ipratropium (Duoneb) 3 ml Q6HWA RESP THERAPY PRN HHN SHORTNESS OF BREATH; Start 12/12/18 at 11:30 Morphine Sulfate/ Sodium Chloride 100 ml @ 1 mls/hr TITRATE IV Last administered on 12/12/18at 13:10; Admin Dose 1 MLS/HR; Start 12/12/18 at 11:30 Lorazepam (Ativan) 1 mg Q4H PRN IV ANXIETY/SEIZURES; Start 12/12/18 at 11:30 Ondansetron HCl (Zofran Inj) 4 mg Q6H PRN IV NAUSEA AND/OR VOMITING; Start 12/12/18 at 11:30 Scopolamine (Transderm-Scop) 1 patch Q72H TRANSDERM Last administered on 12/12/18at 12:44; Admin Dose 1 PATCH; Start 12/12/18 at 11:30 Atropine Sulfate (Atropine 1% Oph) 2 drop Q4H PRN SL TERMINAL CONGESTION; Start 12/12/18 at 11:30 Bisacodyl (Dulcolax Supp) 10 mg DAILY PRN [place] CONSTIPATION; Start 12/12/18 at 11:30 WALTER HENDERSON 28, 2019 13:47
[2018-12-12] MEDS ORDERED: ZOLPIDEM 5 MG TAB PO PRN (22:30)
[2018-12-13] VITALS (9 sets, daily range): BP systolic 147–194; BP diastolic 66–106; PULSE 60–82; RESP 20–22
--- NOTE | 2018-12-13 09:16 | QN ---
Documentation Comment Since pt is now inpatient Hospice> Dr Veliz took over case due to [facility] will sign off FELIX BHAGAT MD Dec 13, 2018 09:16
--- NOTE | 2018-12-13 13:53 | CONS ---
Consult Date/Type/Reason Admit Date/Time Dec 08, 2018 at 02:04 Initial Consult Date 12/08/18 Type of Consult Pulmonary Requesting Provider: FELIX BHAGAT MD Date/Time of Note DATE: 12/13/18 TIME: 13:53 Subjective Remains mostly bipap dependant. Objective Vital Signs Date Temp Pulse Resp B/P (MAP) Pulse Ox O2 O2 Flow FiO2 Time Delivery Rate 12/13/18 Nasal 08:00 Cannula 12/13/18 97.8 72 20 149/99 100 07:52 (116) 12/13/18 40 07:49 12/12/18 4.0 17:57 Intake and Output 12/12/18 12/12/18 12/13/18 1515:00 23:00 07:00 IntakeIntake Total 300 ml 967 ml OutputOutput Total 600 ml BalanceBalance 300 ml 367 ml Exam GENERAL: Elderly appearing gentleman comfortable at rest no acute distress on bilevel ventilation VITAL SIGNS: per chart NECK: Supple. No JVD or lymphadenopathy. CARDIAC EXAM: S1, S2. No added sounds or murmurs. CHEST: Diminished air entry left lung ABDOMEN: Soft, nontender. No guarding or rebound. EXTREMITIES: No cyanosis, clubbing or edema. NEUROLOGIC: Generalized weakness. No focal deficits. Vent Setting Fraction of Inspired Oxygen pe: 40 Results/Medications Result Diagram: 12/10/18 0512 12/11/18 0511 Medications Current Medications Albuterol/ Ipratropium (Duoneb) 3 ml Q6HWA RESP THERAPY PRN HHN SHORTNESS OF BREATH Last administered on 12/12/18at 17:42; Admin Dose 3 ML; Start 12/12/18 at 11:30 Morphine Sulfate/ Sodium Chloride 100 ml @ 1 mls/hr TITRATE IV Last administered on 12/12/18at 13:10; Admin Dose 1 MLS/HR; Start 12/12/18 at 11:30 Lorazepam (Ativan) 1 mg Q4H PRN IV ANXIETY/SEIZURES Last administered on 12/12/18at 18:23; Admin Dose 1 MG; Start 12/12/18 at 11:30 Ondansetron HCl (Zofran Inj) 4 mg Q6H PRN IV NAUSEA AND/OR VOMITING; Start 12/12/18 at 11:30 Scopolamine (Transderm-Scop) 1 patch Q72H TRANSDERM Last administered on 12/12/18at 12:44; Admin Dose 1 PATCH; Start 12/12/18 at 11:30 Atropine Sulfate (Atropine 1% Oph) 2 drop Q4H PRN SL TERMINAL CONGESTION; Start 12/12/18 at 11:30 Bisacodyl (Dulcolax Supp) 10 mg DAILY PRN [place] CONSTIPATION; Start 12/12/18 at 11:30 Zolpidem Tartrate (Ambien) 5 mg HS PRN PO INSOMNIA Last administered on 12/12/18at 22:36; Admin Dose 5 MG; Start 12/12/18 at 22:30 Assessment/Plan Hospital Course (Demo Recall) IMP: 1. 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 Likely representing an acute exacerbation. 2. Afib with RVR--likely driven by #1 3. CKD 4. Advanced Prostate Cancer 5. DNR/DNI RECS: 1. Bronchodilators ATC 2. BiPAP, trial of high flow O2 3. Abx 4. Solumedrol IV 5. Rate control as per Cards 6. DVT prophylaxis Transition to hospice ? SHERI GILL MD, [facility] Dec 13, 2018 13:53
--- NOTE | 2018-12-13 15:08 | PN ---
DATE: 12/13/2018 LEVEL OF CARE: [facility] PRIMARY HOSPICE DIAGNOSIS: Acute respiratory failure due to end-stage lung disease comorbids: hypertension, prostate cancer, chronic kidney disease stage III, paroxysmal atrial fibrillation. HOSPITAL COURSE: The patient, since yesterday has continued to decline. The patient has become progressively more lethargic. Due to increasing shortness of breath, morphine dose had to be increased to 3 mg an hour. No reported hemoptysis, no reported bleeding from any site. The patient did not have any terminal temperature or agitation. The patient is lethargic, does have occasional rattling sounds. PHYSICAL EXAMINATION: VITAL SIGNS: Temperature 97.8, pulse 72, respirations 20, blood pressure 149/99, O2 saturation 100% on nasal cannula. HEENT: No eye discharge or redness. NECK: No mass, no use of accessory muscles. CHEST: Revealed coarse breath sounds. CARDIOVASCULAR: S1, S2 normal, no murmur. ABDOMEN: Soft and nontender. EXTREMITIES: No edema. NEUROLOGIC: The patient is lethargic and no useful communication was possible. IMPRESSION: 1. 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 2. Hypertension. 3. Prostate cancer. 4. Chronic kidney disease stage III. 5. Paroxysmal atrial fibrillation. PLAN: The patient will be continued on morphine drip at 3 mg an hour which will be titrated up for comfort care. Will continue DuoNeb for chest congestion and IV Ativan 1 mg q. 4 hours p.r.n. for anxiety. Scopolamine patch has been added for secretions and I will increase atropine drops to 2 drops q.2h p.r.n. for oral secretions. Plan of care discussed with the patient's sister Keely. The patient remains terminally ill and appropriate for [facility] level of care. Dictated By: DEVAN MUNIZ/NTS Conf#: [id number] DID#: [id number] CC: FELIX BHAGAT; WALTER HENDERSON MD;*EndCC* MTDD
[2018-12-14] VITALS (7 sets, daily range): BP systolic 84–150; BP diastolic 54–93; PULSE 86–109; RESP 12–24
[2018-12-14] MEDS: ATROPINE 1% 5 ML OPH SL PRN ×2 (03:38→05:48)
[2018-12-14] MEDS: morphine (DRIP) 100 MG/100 ML 100 ML IV SCH (04:27)
--- NOTE | 2018-12-14 09:57 | PN ---
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 The patient since yesterday has continued to decline and mor phine dose has been increased to 4 mg at bedtime. He appears to have shortness of breath and moaning . We will increase morphine drip to 5 mg an hour. The patient did not have any bleeding from any si te. No temperature spike. The patient has progressively become more lethargic and no reported vomit ing, no reported seizures. PHYSICAL EXAMINATION: GENERAL: Lethargic and nonverbal. VITAL SIGNS: Temperature 98.5, pulse 94, respirations 24, blood pressure 120/85, O2 saturation 89% o n 4 liter nasal cannula. HEENT: No eye discharge or redness. Nose and ear is normal. NECK: No mass, no JVD. Mild use of accessory muscles. CHEST: Coarse breath sounds bilaterally. CARDIOVASCULAR: S1, S2 normal. ABDOMEN: Soft and nontender. EXTREMITIES: Trace edema. NEUROLOGIC: The patient is nonverbal. IMPRESSION: 1. 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 2. Paroxysmal atrial fibrillation. 3. Hypertension. PLAN: The patient's morphine dose will be increased to 500 mg. I will continue scopolamine patch an d atropine drops for secretions and DuoNeb for chest congestion. For terminal anxiety, we will zhen nue IV Ativan on 1 mg q.4h. p.r.n. Plan of care discussed with the patient's sister, Keely and nurs ing staff at [facility]. We will continue to optimize comfort care. Dictated By: DEVAN LAMB MD AB/NTS Conf#: [id number] DID#: [id number] CC: WALTER HENDERSON MD; FELIX BHAGAT; DEVAN LAMB MD;*End*
[2018-12-14] MEDS: LORAZEPAM 2 MG INJ IV SCH ×2 (10:43→18:35)
[2018-12-15] VITALS: BP 85/53
[2018-12-15] MEDS: morphine (DRIP) 100 MG/100 ML 100 ML IV SCH (01:22)
[2018-12-15] MEDS: LORAZEPAM 2 MG INJ IV SCH (03:01)
[2018-12-15 04:00] VITALS: BP 80/51; PULSE 117
[2018-12-15 07:22] VITALS: BP 77/45; PULSE 92; RESP 16
--- NOTE | 2018-12-15 11:16 | PN ---
DATE: 12/15/2018 SUBJECTIVE AND INTERVAL HISTORY: The patient since yesterday has continued to decline and his blood pressure this morning dropped into 70s. The patient remains nonverbal, occasional chest congestion. No reported vomiting, no reported seizure, no reported agitation. The patient remains on 4 liters nasal cannula, O2 sat 91%. The patient did have a low grade temperature earlier today. PHYSICAL EXAMINATION: GENERAL: The patient was nonverbal. VITAL SIGNS: Temperature 100, pulse 92, respiration rate 16, blood pressure 77/45, O2 saturation 91% on 4 liters nasal cannula. HEENT: No eye discharge or redness. Nose is normal. NECK: No mass. CHEST: Diminished air entry bilaterally with few scattered coarse breath sounds. CARDIOVASCULAR: Regular rate and rhythm, no murmur. ABDOMEN: Soft and nontender. EXTREMITIES: Trace edema. NEUROLOGIC: The patient is nonverbal. IMPRESSION: 1. Acute respiratory failure due to chronic obstructive pulmonary disease and old granulomatous tube rculosis. 2. Paroxysmal atrial fibrillation. 3. Hypertension. PLAN: The patient's morphine dose has been increased to 7 mg an hour due to increasing shortness of breath and pain. Continue Ativan 1 mg q.8h. around the clock and q.4h. p.r.n. for tremor and anxie ty. Continue scopolamine patch and atropine drops for secretions. The patient remains terminally il l and appropriate for [facility] level of care. We will continue to optimize comfort care. Plan of care discussed with the patient's sister, Keely. Dictated By: DEVAN MUNIZ/SONYA Conf#: [id number] DID#: [id number] CC: FELIX BHAGAT; WALTER HENDERSON MD;*EndCC*
--- NOTE | 2018-12-17 02:54 | DES ---
DATE OF ADMISSION: 12/08/2018 DATE OF : 12/15/2018 TIME OF : 9:45 a.m. 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 The patient was on home O2. Also, had comorbidity of hypertension, prostate cancer and was on Casodex. patient was admitted at [facility] on 12/08/2018 because of increasing shortness of breath. The patient was in atrial fibrillation with rapid ventricular response. The patient was in acute o n chronic respiratory failure. The patient decided to be DNR and DNI. The patient had to be put on BiPAP for respiratory failure and was also started on Cardene drip. The patient was seen by Dr. Sasha espinoza's group from pulmonary standpoint and Dr. Valente' group from cardiac standpoint. The patient co uld not be weaned off of BiPAP and was referred to palliative care. The patient was seen by Dr. Neo carpenter and he met with the patient and his sister and they decided to go for comfort care and did not w ant the BiPAP to continue and wanted to be on comfort measures only. The patient was referred to [facility] hospice and was admitted under [facility] level of care on 12/12/2017 for respiratory failure. The patie nt was taken off BiPAP and was started on morphine drip at 1 mg an hour. The patient for secretions was started on scopolamine patch and atropine drops. The patient continued to decline and became pro gressively more lethargic. The patient did not eat or drink anything after removing BiPAP. The leonard ent did have intermittent low grade fever, but there were no seizures or any vomiting or any bleeding from any site. The patient had to be started on [id number] Ativan due to anxiety along with o ptimizing morphine drip. On the day of expiry, the patient had become progressively more lethargic a nd his blood pressure had dropped into 70s. The patient was requiring 7 mg of morphine an hour to ke ep him comfortable. The patient was noted to have stopped breathing and on examination, the patient did not have any breath sound, pulse or any heart sound. Pupils were fixed and dilated. The patient was pronounced at 9:45 a.m. on 12/15/2018. The patient's sister, Keely, was notified along wit h a lady from [facility]. Dictated By: DEVAN MUNIZ/SONYA Conf#: [id number] DID#: [id number]
== END 2018-12-15 09:25 | disposition expired | DRG 189 ==
LOC: E/R 19:43 → 6WM 12-08 02:04
PROVIDERS: ADMIT Internal Medicine; ATTEND Internal Medicine
PROC: 5A09557 Assistance with Respiratory Ventilation, Greater than 96 Consecutive Hours, Continuous Positive Airway Pressure (ICD-10-PCS; principal; 2018-12-08)
DX: J96.21 Acute and chronic respiratory failure with hypoxia (principal); I13.0 Hypertensive heart and chronic kidney disease with heart failure and stage 1 through stage 4 chronic kidney disease, or unspecified chronic kidney disease; J44.1 Chronic obstructive pulmonary disease with (acute) exacerbation; N17.9 Acute kidney failure, unspecified; J98.19 Other pulmonary collapse; I50.9 Heart failure, unspecified; Z66 Do not resuscitate; C61 Malignant neoplasm of prostate; Z51.5 Encounter for palliative care; N18.3 Chronic kidney disease, stage 3 (moderate); B90.9 Sequelae of respiratory and unspecified tuberculosis; Z99.81 Dependence on supplemental oxygen; I48.0 Paroxysmal atrial fibrillation
CPT/HCPCS: 36415; 36600; 71045; 80048; 80053; 80061; 82550; 82553; 82803; 83735; 83880; 84100; 84443; 84484; 85025; 85610; 85730; 87040; 87400; 93005; 94640; 94644; 94660; 94664; 96374; 96375; J0456; J0692; J0696; J1940; J2060; J2270; J2405; J2920; J3370; J7040; J7050